=== PATIENT | female | born 1955 | race Caucasian/White ===

== ENCOUNTER 2020-02-21 17:35 | Outpatient (CLI) | payer OTHER, SELFPAY ==
--- NOTE | ~2020-02-21 | XR_ITS ---
XR foot RT min 3V DATE: 02/21/2020 18:04 INDICATION: Dorsal pain. No injury. TECHNIQUE: 4 views COMPARISON: None FINDINGS: Screws are noted in the distal shaft of the first metatarsal bone. There is prominent osteo arthritic change at the first metatarsophalangeal joint. No fracture, dislocation, periosteal reaction or bone destruction is detected. IMPRESSION: Postoperative change of first metatarsal Prominent osteoarthritic change at first metatarsophalangeal joint Reviewed, dictated and finalized at location A.
== END 2020-02-21 17:36 | disposition home or self-care (01) ==
PROVIDERS: PCP Internal Medicine; Visit Provider Internal Medicine
DX: M79.673 Pain in unspecified foot (principal); Z98.890 Other specified postprocedural states
CPT/HCPCS: 73630

== ENCOUNTER 2020-07-21 16:22 | Outpatient (CLI) | payer OTHER, SELFPAY ==
--- NOTE | ~2020-07-21 | XR_ITS ---
EXAMINATION: XR chest 2V DATE: 07/21/2020 16:54 INDICATION: TB screening TECHNIQUE: PA and lateral views of the chest were obtained. COMPARISON: Chest radiograph dated 06/26/2018 and 09/13/07 FINDINGS: Unchanged mild biapical pleural-parenchymal scarring. Lungs remain otherwise clear with no new airspa ce opacities, pulmonary edema, pleural effusion or pneumothorax. Mild eventration along the diaphragm . The cardiomediastinal silhouette is normal. Mild thoracic levocurvature with moderate spondylosis. IMPRESSION: 1. Stable appearance of chronic mild biapical pleural-parenchymal scarring. No acute cardiopulmonary disease. Reviewed, dictated and finalized at location A. 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
== END 2020-07-21 16:23 | disposition home or self-care (01) ==
PROVIDERS: PCP Internal Medicine; Visit Provider Physician Assistant
DX: Z11.1 Encounter for screening for respiratory tuberculosis (principal)
CPT/HCPCS: 71046

== ENCOUNTER 2020-12-23 10:08 | Emergency (ER) | payer OTHER, SELFPAY ==
--- NOTE | ~2020-12-23 | XR_ITS ---
EXAMINATION: XR wrist RT min 3V DATE: 12/23/2020 10:23 INDICATION: Right wrist pain. TECHNIQUE: 4 views of right wrist were obtained. COMPARISON: None. FINDINGS: Bone alignment is normal. No fracture. There is mild osteoarthritis of first carpometacarpa l joint and first and second metacarpophalangeal joints. IMPRESSION: 1. Mild polyarticular osteoarthritis. Reviewed, dictated and finalized at location A.
--- NOTE | 2020-12-23 10:11 | ED.UPPEXIN ---
HPI - Extremity Injury (Upper) General Chief Complaint: Extremity Injury, Upper Stated Complaint: injured r wrist Time Seen by Provider: 12/23/20 10:11 Source: patient and RN notes reviewed History of Present Illness HPI narrative: Patient is a 65-year-old female who presents the urgent care with complaints of right wrist injury with swelling and pain. Patient is right-hand dominant. Patient states that she fell catching herself outward yesterday. States it is slightly swollen, painful with movement. Patient has been elevating and using ibuprofen. No other acute complaints. No acute distress noted. Denies of any other injuries from the fall. Patient aware of the plan of care. Some parts of this dictation were generated by voice recognition software and may contain typographical and/or grammatical inaccuracies. Related Data Home Medications Medication Instructions Recorded Confirmed triamcinolone acetonide 0.1 % 1 applic TOPICAL BID 05/23/19 08/20/20 topical cream folic acid 1 mg tablet 1 mg PO DAILY 02/21/20 08/20/20 adalimumab 20 mg/0.2 mL 20 mg SUBCUT .COMPLEX ea 08/20/20 08/20/20 subcutaneous syringe kit calcium carbonate 600 mg calcium 600 mg PO DAILY 08/20/20 08/20/20 (1,500 mg) tablet cholecalciferol (vitamin D3) 50 50 mcg PO DAILY 08/20/20 08/20/20 mcg (2,000 unit) tablet methotrexate sodium 2.5 mg tablet 20 mg PO WEEKLY tablet 08/20/20 08/20/20 naltrexone 50 mg tablet 50 mg PO DAILY 08/20/20 08/20/20 Allergies Allergy/AdvReac Type Severity Reaction Status Date / Time No Known Allergies Allergy Verified 08/20/20 08:10 Review of Systems Review of Systems: Narrative: CONSTITUTIONAL: Denies fever, chills, or sweats. EYES: Denies visual changes, redness, or discharge. ENT: Denies rhinorrhea, congestion, sore throat, or otalgia. CARDIOVASCULAR: Denies chest pain, palpitations, or edema. RESPIRATORY: Denies cough or dyspnea. GASTROINTESTINAL: Denies abdominal pain, nausea, vomiting, or diarrhea. GENITOURINARY: Denies dysuria or hematuria. SKIN: Denies rash or itching. MUSCULOSKELETAL: Reports of right wrist injury with pain and swelling NEUROLOGIC: Denies headache, numbness, or weakness. All other systems reviewed are negative, except as documented in HPI. [facility] Past Medical History Medical History Body mass index (bmi) 25.0-25.9, adult Cervicalgia Cognitive dysfunction Gastroesophageal reflux disease Hx of Sjogren's disease Hyperlipidemia Low back pain without sciatica On fpc drug therapy Vitamin B12 deficiency Surgical History Surgical History History of arthroplasty of left shoulder Social History Social History Smoking status: Never smoker Alcohol intake: current Drinks per week: 7 Substance use: never Comments At the time of my signature, I reviewed and agree with the nursing past medical, surgical, social, and family history. There is no relevant family history pertinent to the patient complaint. Exam Narrative: Exam Narrative: GENERAL: This is a well-nourished, well-developed patient, in no apparent distress. HEAD: normocephalic, atraumatic. EYES: PERRL. Sclera clear/white. Vision is grossly intact. EARS: External ears normal NOSE: External nose normal with no obvious nasal discharge, nares without redness, no rhinorrhea. THROAT: Mucous membranes moist NECK: Neck supple CARDIOVASCULAR: Regular rate and rhythm without murmurs, gallops, or rubs. RESPIRATORY: Clear to auscultation. Breath sounds equal bilaterally. No wheezes, rales, or rhonchi. SKIN: warm, intact with no suspicious lesions or rash, good texture and turgor. NEURO: awake, alert, and oriented to person, place and time. There were no obvious focal neurologic abnormalities. EXTREMITIES: Mild edema noted to the radial aspect of the right wr
[2020-12-23 10:14] VITALS: BP 121/77; PULSE 77; RESP 12; TEMP 36.5; O2SAT 99
== END 2020-12-23 10:44 | disposition home or self-care (01) ==
PROVIDERS: Emergency Provider Nurse Practitioner Family; PCP Internal Medicine
DX: S63.501A Unspecified sprain of right wrist, initial encounter (principal); S66.911A Strain of unspecified muscle, fascia and tendon at wrist and hand level, right hand, initial encounter; S61.401A Unspecified open wound of right hand, initial encounter; W19.XXXA Unspecified fall, initial encounter; K21.9 Gastro-esophageal reflux disease without esophagitis; M35.00 Sjogren syndrome, unspecified; E78.5 Hyperlipidemia, unspecified
CPT/HCPCS: 73110; 99213; G0463

== ENCOUNTER 2021-05-22 07:50 | Outpatient (CLI) | payer OTHER, SELFPAY ==
--- NOTE | ~2021-05-22 | US_ITS ---
EXAMINATION: US abdomen limited DATE: 05/22/2021 08:11 INDICATION: Right upper quadrant pain TECHNIQUE: Multiple grayscale and Doppler ultrasound images of the abdomen were obtained. COMPARISON: None available FINDINGS: Bowel gas obscures visualization of the pancreas. The visualized portions of the pancreas a re unremarkable. The liver is normal with normal echogenicity and echotexture. No surface nodularity. Normal hepatopetal flow in the main portal vein. The gallbladder is normal with no abnormal wall thi ckening, pericholecystic fluid or stones. The normal common bile duct measures 3 mm. There was no son ographic Zhao sign. IMPRESSION: 1. Normal sonographic study of the gallbladder. Reviewed, dictated and finalized at location A. 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
== END 2021-05-22 07:51 | disposition home or self-care (01) ==
LOC: ANHIMG 07:50
PROVIDERS: PCP Internal Medicine
DX: R10.13 Epigastric pain (principal)
CPT/HCPCS: 76705

== ENCOUNTER 2022-04-03 22:47 | Emergency (ER) | payer OTHER, SELFPAY ==
--- NOTE | ~2022-04-03 | XR_ITS ---
EXAMINATION: XR ankle RT min 3V DATE: 04/03/2022 23:20 INDICATION: Right ankle pain post fall TECHNIQUE: Anteroposterior, oblique, mortise, and lateral views of the right ankle were obtained. COMPARISON: None. FINDINGS: Nondisplaced transverse fracture across the tip of the lateral malleolus exiting the medial cortex 7- 8 mm caudal to the level of the tibiotalar joint line. Tiny heterotopic ossicle near the tip the late ral malleolus likely sequela of chronic lateral ankle sprain. No other fractures identified. Likely r ealignment osteotomy at the neck of the first metatarsal fixed with a pair of screws, the more distal without a head. Profiled joint spaces appear relatively preserved. There is prominent hypertrophic c hange and moderate sized heterotopic ossicle at the dorsal aspect of the anterior process of the talu s. No evident osseous coalition. Bone island in the calcaneus. Small right ankle joint effusion. Soft tissue swelling about the lateral malleolus. IMPRESSION: 1. Nondisplaced transverse fracture of the distal left fibula consistent with a Eugene type A injury p attaydin. Reviewed, dictated and finalized at location A. IMPRESSION: 1. Nondisplaced transverse fracture of the distal left fibula consistent with a Eugene type A injury pattern.
[2022-04-03 22:53] VITALS: BP 121/70; PULSE 74; RESP 16; TEMP 36.9; O2SAT 100
--- NOTE | 2022-04-04 01:30 | PC.NURSE ---
Patient wheeled out by significant other and states we're leaving, call us if you get any results. Patient was A&Ox4 and refused to sign paperwork before leaving.
--- NOTE | 2022-04-04 15:08 | PC.NURSE ---
PER DR. MASON'S REQUEST THIS PT WAS CALLED REGARDING OVER READ OF ANKLE XRAY. PT INFORMED OF FRACTURE AND NEED TO COME BACK TO ED OR SEE DR. BEATRIZ RAI. PT DOES NOT WISH TO COME BACK TO ED
== END 2022-04-04 01:31 | disposition left against medical advice (07) ==
PROVIDERS: Emergency Provider Emergency Medicine; PCP Family Medicine
DX: S99.911A Unspecified injury of right ankle, initial encounter (principal)
CPT/HCPCS: 73610; 99199

== ENCOUNTER 2022-08-31 10:37 | Emergency (ER) | payer MEDICARE, SELFPAY ==
--- NOTE | ~2022-08-31 | XR_ITS ---
EXAMINATION: XR hand RT min 3V INDICATION: Right hand pain, initial encounter TECHNIQUE: Three views of the right hand are obtained. COMPARISON: None available FINDINGS: There appear to be nondisplaced transverse fractures in the proximal necks of the fourth an d fifth metacarpals. There is mild osteoarthritis of multiple interphalangeal joints. IMPRESSION: 1. Possible nondisplaced fractures in the proximal necks of the fourth and fifth metacarpals. Recomme nd correlation for tenderness at the sites. Reviewed, dictated and finalized at location L. IMPRESSION: 1. Possible nondisplaced fractures in the proximal necks of the fourth and fift h metacarpals. Recommend correlation for tenderness at the sites.
--- NOTE | ~2022-08-31 | XR_ITS ---
EXAMINATION: [id number] INDICATION: Right-sided chest pain TECHNIQUE: A frontal view of the chest and 3 views of the right ribs were obtained. COMPARISON: None. FINDINGS: The lungs are free of acute opacities. No pleural effusion or pneumothorax. No displaced ri b fracture is identified. The cardiomediastinal silhouette is normal. IMPRESSION: 1. No acute cardiopulmonary abnormality or evidence of displaced rib fracture. Reviewed, dictated and finalized at location L.
--- NOTE | 2022-08-31 10:49 | ED.UPPEXIN ---
HPI - Extremity Injury (Upper) General Chief Complaint: Extremity Injury, Upper Stated Complaint: rt hand injury Source: patient and RN notes reviewed History of Present Illness HPI narrative: 67 yo F presents to urgent care with complaints of right dorsal hand pain and right rib pain. pt states she fell last week, injuring these two areas. Pt presents with ecchymosis to right hand and distal FA. Denies any wrist pain, numbness, tingling, head injury, LOC, chest pain, SOB, or abdominal pain. Pt states she tripped on the sidewalk after having cataract surgery and attempted to catch herself with her hands. Pt believes her underwire of her bra hit her rib. Pt has been taking Tylenol at home with minimal relief and wrapping it with a brace. Related Data Home Medications Medication Instructions Recorded Confirmed folic acid 1 mg tablet 1 mg PO DAILY 02/21/20 08/31/22 adalimumab 20 mg/0.2 mL 20 mg subcut .COMPLEX 08/20/20 08/31/22 subcutaneous syringe kit (Leonard(CF)) methotrexate sodium 2.5 mg tablet 20 mg PO WEEKLY 08/20/20 08/31/22 vit C 250 mg-vit E 200 unit-zinc 1 tablet PO BID 03/11/22 08/31/22 12.5 mg-copper 1 [id number] tablet (ICaps AREDS2 (copper citrate)) omeprazole 20 mg tablet,delayed 20 mg PO DAILY 04/08/22 08/31/22 release Allergies Allergy/AdvReac Type Severity Reaction Status Date / Time No Known Allergies Allergy Verified 08/31/22 10:44 Review of Systems Review of Systems: Pertinent positives and pertinent negatives per HPI. [facility] Past Medical History Medical History Body mass index (bmi) 25.0-25.9, adult Cervicalgia Closed fracture of lateral malleolus of right ankle Cognitive dysfunction Gastroesophageal reflux disease Hx of Sjogren's disease Hyperlipidemia Low back pain without sciatica On budget assistant drug therapy Vision changes Vitamin B12 deficiency Surgical History Surgical History History of arthroplasty of left shoulder History of section History of eye surgery Right cataract 2021 Right Vitrectomy 2020 History of hysterectomy Family History Family History Other Arthritis Diabetes mellitus Heart disease Hypertension Lung cancer Social History Social History Smoking status: Never smoker Second hand tobacco smoke exposure: No Alcohol intake: current Drinks per week: 7 Substance use: never Substance use type: does not use Living arrangements: with family Occupation/Education: retired Gender identity (if verbalized by the patient): Female Comments At the time of my signature, I reviewed and agree with the nursing past medical, surgical, social, and family history. There is no relevant family history pertinent to the patient complaint. Exam Narrative: GENERAL: This is a well-nourished, well-developed patient, in no apparent distress. HEAD: normocephalic, atraumatic. EYES: Sclera clear/white. Vision is grossly intact. EARS: External ears normal, auditory canals clear and without drainage, TMs normal without perforation. Hearing grossly intact. NOSE: External nose normal with no obvious nasal discharge, nares without redness, no rhinorrhea. NECK: Neck supple, non-tender without lymphadenopathy, masses or thyromegaly. CARDIOVASCULAR: Regular rate and rhythm without murmurs, gallops, or rubs. Slight tenderness to right, lower, anterior, rib. RESPIRATORY: Clear to auscultation. Breath sounds equal bilaterally. No wheezes, rales, or rhonchi. GASTROINTESTINAL: Abdomen soft, non-tender, nondistended. Bowel sounds are active. No hepato-splenomegaly, or palpable masses. No guarding. SKIN: warm, intact with no suspicious lesions or rash, good texture and turgor. NEURO: awake, alert, and oriented to person, place and
[2022-08-31 10:58] VITALS: BP 151/100; PULSE 66; RESP 18; TEMP 36.5; O2SAT 100
== END 2022-08-31 11:49 | disposition home or self-care (01) ==
PROVIDERS: Emergency Provider Nurse Practitioner Family
DX: S62.91XA Unspecified fracture of right hand, initial encounter for closed fracture (principal); S20.211A Contusion of right front wall of thorax, initial encounter; W01.0XXA Fall on same level from slipping, tripping and stumbling without subsequent striking against object, initial encounter; K21.9 Gastro-esophageal reflux disease without esophagitis; M35.00 Sjogren syndrome, unspecified; E78.5 Hyperlipidemia, unspecified
CPT/HCPCS: 29125; 71101; 73130; 99214; A4565; G0463

== ENCOUNTER 2022-09-04 10:31 | Emergency (ER) | payer MEDICARE, SELFPAY ==
--- NOTE | ~2022-09-04 | XR_ITS ---
EXAMINATION: XR chest 2V DATE: 09/04/2022 11:30 INDICATION: Right-sided chest pain TECHNIQUE: Frontal and lateral views of the chest are obtained COMPARISON: 08/31/2022 FINDINGS: The lungs are free of acute opacities. No pleural effusion or pneumothorax. The cardiomedia stinal silhouette is normal. There is mild thoracic spondylosis. IMPRESSION: 1. No acute cardiopulmonary abnormality. Reviewed, dictated and finalized at location A.
--- NOTE | 2022-09-04 10:45 | ED.SOB ---
HPI - SOB/Dyspnea General Chief Complaint: Upper Respiratory Infection Stated Complaint: shortness of breath Source: patient and RN notes reviewed History of Present Illness HPI Narrative: 67-year-old female presents to urgent care with complaints of painful breathing to her right anterior rib area. Patient reports some shortness of breath and just increased pain in the area where she was diagnosed with a rib contusion this past week. The patient was seen this past week and diagnosed with a hand fracture and rib contusion after she fell. Denies any fevers, chills chest pain, or vomiting. Patient has not been taking anything for pain. Some parts of this dictation were generated by voice recognition software and may contain typographical and/or grammatical inaccuracies. Related Data Home Medications Medication Instructions Recorded Confirmed folic acid 1 mg tablet 1 mg PO DAILY 02/21/20 08/31/22 methotrexate sodium 2.5 mg tablet 20 mg PO WEEKLY 08/20/20 08/31/22 vit C 250 mg-vit E 200 unit-zinc 1 tablet PO BID 03/11/22 08/31/22 12.5 mg-copper 1 [id number] tablet (ICaps AREDS2 (copper citrate)) omeprazole 20 mg tablet,delayed 20 mg PO DAILY 04/08/22 08/31/22 release calcium carbonate 600 mg calcium 600 mg PO DAILY 09/04/22 09/04/22 (1,500 mg) tablet (Calcium) cholecalciferol (vitamin D3) 25 25 mcg PO DAILY 09/04/22 09/04/22 mcg (1,000 unit) capsule (Vitamin D3) Allergies Allergy/AdvReac Type Severity Reaction Status Date / Time No Known Allergies Allergy Verified 09/04/22 11:03 Review of Systems Review of Systems: Pertinent positives and pertinent negatives per HPI. 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 Vision changes Vitamin B12 deficiency Surgical History Surgical History History of arthroplasty of left shoulder History of section History of eye surgery Right cataract 2021 Right Vitrectomy 2020 History of hysterectomy Family History Family History Other Arthritis Diabetes mellitus Heart disease Hypertension Lung cancer Social History Social History Smoking status: Never smoker Second hand tobacco smoke exposure: No Alcohol intake: current Drinks per week: 7 Substance use: never Substance use type: does not use Living arrangements: with family Occupation/Education: retired Gender identity (if verbalized by the patient): Female Comments At the time of my signature, I reviewed and agree with the nursing past medical, surgical, social, and family history. There is no relevant family history pertinent to the patient complaint. Exam Narrative: GENERAL: This is a well-nourished, well-developed patient, in no apparent distress. HEAD: normocephalic, atraumatic. EYES: PERRL. Sclera clear/white. Vision is grossly intact. EARS: External ears normal, auditory canals clear and without drainage, TMs normal without perforation. Hearing grossly intact. NOSE: External nose normal with no obvious nasal discharge, nares without redness, no rhinorrhea. THROAT: Mucous membranes moist, posterior pharynx clear. NECK: Neck supple, non-tender without lymphadenopathy, masses or thyromegaly. CARDIOVASCULAR: Regular rate and rhythm without murmurs, gallops, or rubs. RESPIRATORY: Clear to auscultation. Breath sounds equal bilaterally. No wheezes, rales, or rhonchi. GASTROINTESTINAL: Abdomen soft, non-tender, nondistended. Bowel sounds are active. No hepato-splenomegaly, or palpable say
[2022-09-04 11:07] VITALS: BP 154/98; PULSE 68; RESP 16; TEMP 36.5; O2SAT 97
== END 2022-09-04 12:05 | disposition home or self-care (01) ==
PROVIDERS: Emergency Provider Nurse Practitioner Family; PCP Family Medicine
DX: S20.211D Contusion of right front wall of thorax, subsequent encounter (principal); W19.XXXD Unspecified fall, subsequent encounter; K21.9 Gastro-esophageal reflux disease without esophagitis; M35.00 Sjogren syndrome, unspecified; E78.5 Hyperlipidemia, unspecified
CPT/HCPCS: 71046; 99213; G0463

== ENCOUNTER 2023-02-02 13:45 | Outpatient (CLI) | payer MEDICARE, SELFPAY ==
[2023-02-02 19:34] LABS: Appearance Urine Clear (Clear); Bacteria Urine None Seen /hpf; Bilirubin Urine Negative (Negative); Blood Urine Negative (Negative); Color Urine Yellow (Yellow); Glucose Urine UA Negative (Negative); Hyaline Casts Urine Present /lpf; Ketones Urine Negative (Negative); Leukocyte Esterase Ur Trace LEU/UL (Negative); Nitrate Urine Negative (Negative); Protein Urine Negative (Negative); RBC Urine 0-2 /hpf (0-2); Specific Grav Ur 1.018 (1.001-1.035); Squamous Epithelial Cell Urine None seen /hpf (Few); WBC Urine 0-5 /hpf
[2023-02-02 19:37] LABS: Add Urine Microscopic? YES
== END 2023-02-02 13:46 | disposition home or self-care (01) ==
LOC: ANHGOSHLAB 13:48
PROVIDERS: PCP Family Medicine; Visit Provider Clinical Nurse Specialist
DX: R39.9 Unspecified symptoms and signs involving the genitourinary system (principal)
CPT/HCPCS: 81001

== ENCOUNTER 2023-05-11 12:54 | Emergency (ER) | payer MEDICARE, SELFPAY ==
[2023-05-11 13:01] VITALS: BP 140/89; PULSE 67; RESP 16; TEMP 36.6; O2SAT 99
--- NOTE | 2023-05-11 13:12 | ED.SKABFB ---
HPI - Skin/Abscess/Foreign Bdy General Chief complaint: Skin/Abscess/Foreign Body Stated complaint: INFECTED R ANKLE Time Seen by Provider: 05/11/23 13:06 Source: patient and RN notes reviewed Mode of arrival: ambulatory Limitations: no limitations History of Present Illness HPI narrative: Patient presents today complaining of an area of tenderness and pain to the right youssef. Two days ago she ran her youssef into a piece of wood in her garage on accident. States there was some localized swelling, pain, and redness. Reports improved symptoms since onset. She currently rates her pain 06/22. She presents today at [facility] for evaluation due to concerns for infection. Related Data Home Medications Medication Instructions Recorded Confirmed methotrexate sodium 2.5 mg tablet 20 mg PO WEEKLY 08/20/20 05/11/23 vit C 250 mg-vit E 200 unit-zinc 1 tablet PO BID 03/11/22 05/11/23 12.5 mg-copper 1 [id number] tablet (ICaps AREDS2 (copper citrate)) omeprazole 20 mg tablet,delayed 20 mg PO DAILY 04/08/22 05/11/23 release calcium carbonate 600 mg calcium 600 mg PO DAILY 09/04/22 05/11/23 (1,500 mg) tablet (Calcium) cholecalciferol (vitamin D3) 25 25 mcg PO DAILY 09/04/22 05/11/23 mcg (1,000 unit) capsule (Vitamin D3) golimumab 12.5 mg/mL intravenous 12.5 mg IV PER PKG DIR 10/06/22 03/24/23 solution (Simponi ARIA) Allergies Allergy/AdvReac Type Severity Reaction Status Date / Time No Known Allergies Allergy Verified 05/11/23 13:08 Review of Systems Review of Systems: CONSTITUTIONAL: Denies body aches, fever, chills, or sweats. EYES: Denies visual changes, redness, or discharge. ENT: Denies rhinorrhea, congestion, sore throat, or otalgia. CARDIOVASCULAR: Denies chest pain, palpitations, or edema. RESPIRATORY: Denies cough or dyspnea. GASTROINTESTINAL: Denies abdominal pain, nausea, vomiting, or diarrhea. GENITOURINARY: Denies dysuria or hematuria. SKIN: + tenderness and swelling to right youssef MUSCULOSKELETAL: Denies back pain, joint pain, or myalgia. NEUROLOGIC: Denies headache, numbness, tingling, or weakness. PSYCH: Denies depression or anxiety. 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 Vision changes Vitamin B12 deficiency Surgical History Surgical History History of arthroplasty of left shoulder History of section History of eye surgery Right cataract 2021 Right Vitrectomy 2020 History of hysterectomy Family History Family History Other Arthritis Diabetes mellitus Heart disease Hypertension Lung cancer Social History Social History Smoking status: Never smoker Second hand tobacco smoke exposure: No Alcohol intake: current Drinks per week: 7 Substance use: never Substance use type: does not use Lack of Transportation: No Lack of Food: Never True Current Housing: I Have Housing Concerned About Future Housing: No Difficulty Paying Gas/Electric Bills: No Difficulty Paying for Meds: No Currently Unemployed: No Education: Associate Degree Difficulty w/ Childcare or Family Care: No Living arrangements: with family Occupation/Education: retired Gender identity (if verbalized by the patient): Female Comments At time of signature, I have reviewed and agree with nursing past medical, surgical, social and family history unless otherwise noted. Please see nursing chart for further information. There is no relevant family history pertinent to
--- NOTE | 2023-05-11 13:24 | PC.NURSE ---
+PMS, FULL ROM, PT AMBULATES WITH STEADY GAIT. NON TENDER UPON PALPATION
== END 2023-05-11 13:15 | disposition home or self-care (01) ==
PROVIDERS: Emergency Provider Nurse Practitioner; PCP Family Medicine
DX: S80.11XA Contusion of right lower leg, initial encounter (principal); W22.8XXA Striking against or struck by other objects, initial encounter; K21.9 Gastro-esophageal reflux disease without esophagitis; E78.5 Hyperlipidemia, unspecified; M35.00 Sjogren syndrome, unspecified
CPT/HCPCS: 99212; G0463

== ENCOUNTER 2023-07-06 11:39 | Outpatient (CLI) | payer MEDICARE, SELFPAY ==
--- NOTE | ~2023-07-06 | XR_ITS ---
Lumbosacral Spine: AP, oblique, and lateral views Clinical History: Pain Findings: There is dextroscoliosis. No fracture seen. There is minimal grade 1 retrolisthesis of L2 o ronan L3. There is moderate to advanced degenerative disc narrowing at L1-L2 and L2-L3. There is modera te to advanced facet arthropathy throughout the lumbar spine. The intervertebral disc spaces are pres erved. The sacroiliac joints are normally outlined. Impression: Moderate degenerative spondylosis, as above. Mild dextroscoliosis. Minimal grade 1 retrolisthesis of L2 over L3. Reviewed, dictated and finalized at location M. IST Impression: Moderate degenerative spondylosis, as above. Mild dextroscoliosis. Minimal grade 1 retrolisthesis of L2 over L3.
== END 2023-07-06 11:40 ==
PROVIDERS: PCP Family Medicine; Visit Provider Family Medicine
DX: M54.50 Low back pain, unspecified (principal); M43.06 Spondylolysis, lumbar region; M41.87 Other forms of scoliosis, lumbosacral region
CPT/HCPCS: 72110

== ENCOUNTER 2023-12-26 13:20 | Outpatient (NON) | payer MEDICARE, SELFPAY ==
[2023-12-26 15:05] LABS: Appearance Urine Cloudy (Clear); Bacteria Urine 2+ /hpf; Bilirubin Urine Negative (Negative); Blood Urine Non-Hemolyzed Trace (Negative); Color Urine Yellow (Yellow); Glucose Urine UA Negative (Negative); Ketones Urine Negative (Negative); Leukocyte Esterase Ur 3+ LEU/UL (Negative); Nitrate Urine Negative (Negative); Non Pathogenic Casts 0-2; Protein Urine Negative (Negative); RBC Urine 0-2 /hpf (0-2); Specific Grav Ur 1.011 (1.001-1.035); Squamous Epithelial Cell Urine None Seen /hpf (Few); Urobilinogen Urine 0.2 mg/dL (<2.0); WBC Urine >100 /hpf (0-3)
[2023-12-26 15:17] LABS: Add Urine Microscopic? YES
== END 2023-12-26 13:21 | disposition home or self-care (01) ==
LOC: ANHGOSHLAB 13:22
PROVIDERS: PCP Family Medicine; Visit Provider Nurse Practitioner
DX: R30.0 Dysuria (principal)
CPT/HCPCS: 81001; 87077; 87086; 87186

== ENCOUNTER 2024-02-10 10:00 | Emergency (ER) | payer MEDICARE, SELFPAY ==
--- NOTE | 2024-02-10 10:04 | ED.FEMALEGU ---
HPI - Female Genitourinary General Chief complaint: Urogenital-Female Stated complaint: UTI Time Seen by Provider: 02/10/24 10:30 Source: patient and RN notes reviewed Mode of arrival: ambulatory Limitations: no limitations History of Present Illness HPI Narrative: 68-year-old female presents with concern for dysuria for 3 days. She reports she has had frequent urinary tract infections this summer. She had an infection in December and then at the beginning of January. She denies fever, aches, chills, sweats, nausea, vomiting, back pain, abdominal pain. She denies taking any medications for her symptoms MD elicited complaint: UTI Related Data Home Medications Medication Instructions Recorded Confirmed methotrexate sodium 2.5 mg tablet 20 mg PO WEEKLY 08/20/20 01/12/24 vit C 250 mg-vit E 200 unit-zinc 1 tablet PO BID 03/11/22 01/12/24 12.5 mg-copper 1 [id number] tablet (ICaps AREDS2 (copper citrate)) omeprazole 20 mg tablet,delayed 20 mg PO DAILY 04/08/22 01/12/24 release calcium carbonate (Calcium 600) 600 mg PO DAILY 09/04/22 01/12/24 cholecalciferol (vitamin D3) 25 25 mcg PO DAILY 09/04/22 01/12/24 mcg (1,000 unit) capsule (Vitamin D3) golimumab 12.5 mg/mL intravenous 12.5 mg IV PER PKG DIR 10/06/22 01/12/24 solution (Simponi ARIA) folic acid 1 mg tablet 1 mg PO DAILY 12/26/23 01/12/24 Allergies Allergy/AdvReac Type Severity Reaction Status Date / Time No Known Allergies Allergy Verified 01/12/24 09:02 Review of Systems Review of Systems: CONSTITUTIONAL: Denies malaise, chills, sweats, or fever. CARDIOVASCULAR: Denies chest pain, palpitations, or edema. RESPIRATORY: Denies cough or dyspnea. GASTROINTESTINAL: Denies abdominal pain, nausea, vomiting, diarrhea GENITOURINARY: Reports dysuria. Denies frequency, urgency, suprapubic pressure. Denies flank pain or hematuria. SKIN: Denies rash or itching. MUSCULOSKELETAL: Denies back pain or myalgia. All systems reviewed & are unremarkable except as noted in HPI and below PMFSH Past Medical History Medical History Body mass index (bmi) 25.0-25.9, adult Cervicalgia Closed fracture of lateral malleolus of right ankle Cognitive dysfunction Gastroesophageal reflux disease Hx of Sjogren's disease Hyperlipidemia Low back pain without sciatica [facility] drug therapy Vision changes Vitamin B12 deficiency Surgical History Surgical History History of arthroplasty of left shoulder History of section History of eye surgery Right cataract 2021 Right Vitrectomy 2020 History of hysterectomy Family History Family History Other Arthritis Diabetes mellitus Heart disease Hypertension Lung cancer Social History Social History Smoking status: Never smoker Second hand tobacco smoke exposure: No Alcohol intake: current Drinks per week: 7 Substance use: never Substance use type: does not use Do You Feel Safe in your Home?: Yes Lack of Transportation: No Lack of Food: Never True Current Housing: I Have Housing Concerned About Future Housing: No Difficulty Paying Gas/Electric Bills: No Difficulty Paying for Meds: No Currently Unemployed: No Education: Associate Degree Difficulty w/ Childcare or Family Care: No Living arrangements: with family Occupation/Education: retired Gender identity (if verbalized by the patient): Female Comments At time of signature, agree with nursing past medical, surgical, social and family history. There is no relevant family history pertinent to the presenting complaint Exam Narrative: GENERAL: Well-appearing, well-nourished, and in no acute distress. HEAD: Normocephalic. EYES: PERRLA, conjunctivae clear. NECK: Supple. No lymphadenopa
[2024-02-10 10:13] VITALS: BP 139/91; PULSE 73; RESP 16; TEMP 36.8; O2SAT 100
[2024-02-10 10:31] LABS: EDUAAPPEAR Cloudy; EDUABILI Negative; EDUABLOOD Trace; EDUACOLOR1 Yellow; EDUAGLUCOSE Negative; EDUAKETONE Negative; EDUALEUKO 2+; EDUANITRATE Negative; EDUAPH 7.5; EDUAPROTEIN Negative; EDUASPGRAVITY 1.015; EDUAUROBILI 0.2
== END 2024-02-10 10:44 | disposition home or self-care (01) ==
PROVIDERS: Emergency Provider Nurse Practitioner; PCP Family Medicine
DX: N39.0 Urinary tract infection, site not specified (principal); K21.9 Gastro-esophageal reflux disease without esophagitis; M35.00 Sjogren syndrome, unspecified; E78.5 Hyperlipidemia, unspecified; Z96.612 Presence of left artificial shoulder joint
CPT/HCPCS: 81003; 87086; 99213; G0463

== ENCOUNTER 2024-07-12 09:54 | Outpatient (CLI) | payer MEDICARE, SELFPAY ==
--- NOTE | ~2024-07-12 | XR_ITS ---
EXAMINATION: XR lumbar spine min 4V DATE: 07/12/2024 10:16 INDICATION: Worsening right lower back pain with right-sided sciatica. TECHNIQUE: 5 views of lumbar spine including standing views were obtained. COMPARISON: Lumbar spine radiographs 07/06/2023 FINDINGS: There is 20 degrees dextroscoliosis of thoracolumbar spine. There is 3 mm retrolisthesis of L2 on L3. Vertebral body heights are normal. There is mildly decreased disc height at L1-L2, severel y decreased disc height at L2-L3, mildly decreased disc height at L3-L4, and severely decreased disc height at L4-L5. There is multilevel facet joint osteoarthritis, severe at multiple levels. IMPRESSION: 1. Severe lumbar spondylosis. 2. Thoracolumbar dextroscoliosis. Reviewed, dictated and finalized at location A. P MAKER
== END 2024-07-12 09:55 | disposition home or self-care (01) ==
LOC: GOSHIMG 09:55
PROVIDERS: PCP Family Medicine; Visit Provider Family Medicine
DX: M47.896 Other spondylosis, lumbar region (principal)
CPT/HCPCS: 72110

== ENCOUNTER 2024-07-31 10:37 | Outpatient (CLI) | payer MEDICARE, SELFPAY ==
--- NOTE | ~2024-07-31 | MR_ITS ---
EXAMINATION: MR lumbar spine wo con DATE: 07/31/2024 11:00 INDICATION: Low back pain. TECHNIQUE: Magnetic resonance imaging (MRI) of the lumbar spine was performed without intravenous con trast. Sequences included sagittal T2-weighted FSE, sagittal T2-weighted FS FSE, sagittal T1-weighted FSE, and axial T2-weighted FSE. COMPARISON: Lumbar spine radiographs 07/12/2024 FINDINGS: There is 13 degrees dextroscoliosis of thoracolumbar spine. There is 4 mm retrolisthesis of L2 on L3. There is mild chronic anterior wedging of T11-L1 vertebral bodies. There is moderately dec reased disc height at L1-L2 and severely decreased disc height at L2-L3 and L4-L5. The distal spinal cord signal intensity is normal. The conus medullaris is at T12-L1. The following disc levels are spe cifically discussed: L1-L2: The disc is bulging and has an annular fissure. There is severe bilateral facet joint osteoart hritis. There is mild bilateral neural foraminal stenosis. There is mild central canal stenosis. L2-L3: The disc is bulging. There is severe bilateral facet joint osteoarthritis. There is mild right and moderate left neural foraminal stenosis. There is mild central canal stenosis. L3-L4: The disc is bulging. There is severe bilateral facet joint osteoarthritis. There is mild bilat eral neural foraminal stenosis. There is mild central canal stenosis. L4-L5: The disc is bulging and has an annular fissure. There is severe bilateral facet joint osteoart hritis. There is mild bilateral neural foraminal stenosis. There is mild central canal stenosis. L5-S1: The disc is bulging. There is severe bilateral facet joint osteoarthritis. There is a 5 mm syn ovial cyst in right lateral recess. There is mild bilateral neural foraminal stenosis. There is mild central canal stenosis. There is severe stenosis of right lateral recess. IMPRESSION: 1. Severe lower lumbar spondylosis. Of note, there is severe stenosis of right lateral recess at L5-S 1 secondary to a synovial cyst. 2. Thoracolumbar dextroscoliosis. Reviewed, dictated and finalized at location A. [employer]SEM[employer]ER IMPRESSION: 1. Severe lower lumbar spondylosis. Of note, there is severe stenosis of right lateral recess at L5-S1 secondary to a synovial cyst. 2. Thoracolumbar dextroscoliosis.
== END 2024-07-31 10:38 | disposition home or self-care (01) ==
LOC: GOSHIMG 10:37
PROVIDERS: PCP Family Medicine; Visit Provider Family Medicine
DX: M47.816 Spondylosis without myelopathy or radiculopathy, lumbar region (principal); M48.07 Spinal stenosis, lumbosacral region; M71.38 Other bursal cyst, other site; M41.85 Other forms of scoliosis, thoracolumbar region
CPT/HCPCS: 72148

== ENCOUNTER 2024-08-20 09:55 | Emergency (ER) | payer MEDICARE, SELFPAY ==
[2024-08-20 10:14] VITALS: BP 128/90; PULSE 84; RESP 18; TEMP 36.7; O2SAT 100
[2024-08-20 10:25] LABS: EDSTREPNEGPOS1 Negative (Negative); EDUAAPPEAR Cloudy; EDUABILI Negative (Negative); EDUABLOOD Negative (Negative); EDUACOLOR1 Yellow; EDUAGLUCOSE Negative (Negative); EDUAKETONE Negative (Negative); EDUALEUKO 1+ (Negative); EDUANITRATE Negative (Negative); EDUAPH 5.5; EDUAPROTEIN Negative (Negative); EDUASPGRAVITY 1.015; EDUAUROBILI 0.2
[2024-08-20 10:39] LABS: EDINFLUASCREEN Negative (Negative); EDINFLUBSCREEN Negative (Negative)
--- NOTE | 2024-08-20 10:47 | ED_ITS ---
HPI - URI/Sore Throat General Chief Complaint: Upper Respiratory Infection Stated Complaint: Congestion/cough, Poss UTI Source: patient and RN notes reviewed Mode of arrival: ambulatory Limitations: no limitations History of Present Illness HPI Narrative: 69-year-old female presented for complaint of sore throat, headache, sinus pressure/congestion, cough, fever/chills. Onset 2 days. Started with diarrhea and then developed burning with urination and frequency. States she recently flew home from [place]. Denies shortness of breath, wheezing, nausea or vomiting. Tested negative for COVID at home yesterday. MD elicited complaint: cough Related Data Home Medications ?Medication ?Instructions ?Recorded ?Confirmed ?Last Taken ?Type methotrexate sodium 2.5 mg tablet 20 mg PO WEEKLY 08/20/20 08/20/24 Unknown History vit C 250 mg-vit E 200 unit-zinc 1 tablet PO BID 03/11/22 08/20/24 Unknown History 12.5 mg-copper 1 [id number]-odyjru tablet (ICaps AREDS2 (copper citrate)) omeprazole 20 mg tablet,delayed 20 mg PO DAILY 04/08/22 08/20/24 Unknown History release calcium carbonate (Calcium 600) 600 mg PO DAILY 09/04/22 08/20/24 Unknown History cholecalciferol (vitamin D3) 25 25 mcg PO DAILY 09/04/22 08/20/24 Unknown History mcg (1,000 unit) capsule (Vitamin D3) golimumab 12.5 mg/mL intravenous 12.5 mg IV PER PKG DIR 10/06/22 08/20/24 Unknown History solution (Simponi ARIA) folic acid 1 mg tablet 1 mg PO DAILY 12/26/23 08/20/24 Unknown History Allergies Allergy/AdvReac Type Severity Reaction Status Date / Time No Known Allergies Allergy Verified 08/20/24 10:13 Review of Systems 2 Review of Systems: per HPI [facility] Past Medical History Medical History Vision changes Closed fracture of lateral malleolus of right ankle Hyperlipidemia Vitamin B12 deficiency Low back pain without sciatica Hx of Sjogren's disease Cervicalgia Cognitive dysfunction 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 Gastroesophageal reflux disease Body mass index (bmi) 25.0-25.9, adult Surgical History Surgical History History of eye surgery Right cataract 2021 Right Vitrectomy 2020 History of hysterectomy History of section History of arthroplasty of left shoulder Family History Family History Other Arthritis Diabetes mellitus Heart disease Hypertension Lung cancer Social History Social History Smoking status: Never smoker Second hand tobacco smoke exposure: No Alcohol intake: current Drinks per week: 7 Substance use: never Substance use type: does not use Do You Feel Safe in your Home?: Yes Lack of Transportation: No Lack of Food: Never True Current Housing: I Have Housing Concerned About Future Housing: No Difficulty Paying Gas/Electric Bills: No Difficulty Paying for Meds: No Currently Unemployed: No Education: Associate Degree Difficulty w/ Childcare or Family Care: No Living arrangements: with family Occupation/Education: retired Gender identity (if verbalized by the patient): Female Exam Narrative: GENERAL: mildly Ill-appearing, nontoxic no acute distress. EYES: PERRLA, conjunctivae clear ENT: Mucous membranes moist. TM pearly dumont with dull light reflex bilaterally; no tragal tenderness. Oropharynx erythematous without lesions or exudate, no drooling, no hoarseness, no trismus, uvula midline. No tripod positioning, muffled voice, soft palate or pharyngeal wall bulging NECK: Supple. No lymphadenopathy CHEST: Clear to auscultation, breath sounds equal. 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 No wheezing, rhonchi, rales, or stridor. No respiratory distress, speaks in full sentences. HEART: Regular rate and rhythm. No murmur heard. SKIN: Warm, dry, no rash. NEURO: Alert and oriented x3. PSYCH: Normal mood and affect Course Course Emergency Course: Patient is aware of diagnosis, understands and agrees to treatment plan. Anticipatory guidance given. Patient agrees to follow-up as directed and is aware of reasons to seek care at the emergency department. Portions of this record may have been created with voice recognition software Level of Care: Express Care Visit Vital Signs Vital signs: Vital Signs Temperature 98.1 F 08/20/24 10:14 Pulse Rate 84 08/20/24 10:14 Respiratory Rate 18 08/20/24 10:14 Blood Pressure 128/90 08/20/24 10:14 Pulse Oximetry 100 08/20/24 10:14 Oxygen Delivery Room Air 08/20/24 10:14 Temperature 98.1 F 08/20/24 10:14 Pulse Rate 84 08/20/24 10:14 Respiratory Rate 18 08/20/24 10:14 Blood Pressure 128/90 08/20/24 10:14 Pulse Oximetry 100 08/20/24 10:14 Oxygen Delivery Room Air 08/20/24 10:14 reviewed MDM - URI/Sore Throat MDM Narrative Medical decision making narrative: Negative flu, COVID, strep. Results reviewed with patient and urine dip. Discussed physical exam findings. Rx Augmentin for possible UTI, she also states she gets yeast infections. Advised supportive measures and signs/symptoms to go to the ER. Pt is appropriate for outpt treatment and f/u. Differential Diagnosis Differential diagnosis: Likely upper respiratory infection, sinusitis and viral infection Lab Data Labs: Lab Results 08/20/24 08/20/24 Range/Units 10:24 10:37 POC Urine Color Yellow POC Urine Clarity Cloudy POC Urine pH 5.5 POC Ur Specif [place] 1.015 POC Urine Protein Negative (Negative) POC Ur Glucose (UA) Negative (Negative) POC Urine Ketones Negative (Negative) POC Urine Blood Negative (Negative) POC Urine Nitrite Negative (Negative) POC Urine Bilirubin Negative (Negative) POC Urine Urobilinogen 0.2 POC U Leukocyte Esteras 1+ (Negative) POC Influenza A Ag Negative (Negative) POC Influenza B Ag Negative (Negative) POC Grp A Strep Screen Negative (Negative) Discharge Plan Discharge Clinical Impression: Dysuria, Viral infection Patient Disposition: Home, Self-Care Condition: Stable Instructions: Antibiotic Form, Urinary Tract Infection in Women (ED), Viral Syndrome (ED) Additional Instructions: Flu and COVID negative Rapid strep swab was negative today You will be notified in a few days if the culture comes back positive for strep, and appropriate antibiotics will be called in at that time. if symptoms are due to a viral illness, it is not treated with antibiotics. Viral symptoms can be present for up to 10-14 days. Recommendations Flonase spray and Zyrtec for sinus congestion Cough syrup may cause drowsiness; avoid driving or take it at night time. Tylenol every 8 hours as needed for pain/fever Soft foods, cool liquids, warm tea. Gargle with warm saltwater twice a day. Chloraseptic spray and throat lozenges. Rest and stay hydrated. Take the antibiotic as prescribed for urine The urine will be sent of for a culture to identify what type of bacteria is causing your infection. If the culture shows that the antibiotic will not get rid of your infection, you will be notified and a new antibiotic will be called in for you. Increase water intake --Follow up with your PCP Go to the ER for worsening symptoms or concerns Patient Language: Mexican Prescriptions: New amoxicillin-pot clavulanate [Augmentin] 500-125 mg tablet 1 tablet PO Q12H 5 Days Qty: 10 0RF fluconazole 150 mg tablet 150 mg PO DAILY Qty: 2 0RF benzonatate 200 mg capsule 200 mg PO TID PRN (Reason: cough) Qty: 20 0RF prednisone 20 mg tablet 40 mg PO DAILY 5 Days Qty: 10 0RF No Action calcium carbonate [Calcium 600] 600 mg calcium (1,500 mg) Tablet 600 mg PO DAILY cholecalciferol (vitamin D3) [Vitamin D3] 25 mcg (1,000 unit) Capsule 25 mcg PO DAILY Simponi ARIA 12.5 mg/mL solution 12.5 mg IV PER PKG DIR Rx Instructions: once every 2 months methotrexate sodium 2.5 mg tablet 20 mg PO WEEKLY ICaps AREDS2 (copper citrate) 250 mg-200 unit -12.5 mg-1 mg tablet 1 tablet PO BID omeprazole 20 mg tablet,delayed release (DR/EC) 20 mg PO DAILY Patient Comments: on provided med list folic acid 1 mg tablet 1 mg PO DAILY escitalopram oxalate 20 mg tablet See Rx Instructions .ROUTE .COMPLEX Qty: 90 1RF Dose Instruction: TAKE 1 TABLET BY MOUTH DAILY Rx Instructions: TAKE 1 TABLET BY MOUTH DAILY Follow-up/Referrals: Kamila Katz DO [Primary Care Provider] - Time of Disposition: 10:56
[2024-08-20 11:04] LABS: EDCOVIDSCREEN Negative (Negative)
== END 2024-08-20 10:59 | disposition home or self-care (01) ==
PROVIDERS: Emergency Provider Nurse Practitioner Family; PCP Family Medicine
DX: R30.0 Dysuria (principal); B34.9 Viral infection, unspecified; Z20.822 Contact with and (suspected) exposure to COVID-19; E78.5 Hyperlipidemia, unspecified; M35.00 Sjogren syndrome, unspecified; K21.9 Gastro-esophageal reflux disease without esophagitis
CPT/HCPCS: 81003; 87081; 87086; 87186; 87426; 87804; 87880; 99213; G0463

== ENCOUNTER 2024-11-21 11:16 | Outpatient (CLI) | payer MEDICARE, SELFPAY ==
[2024-11-21 12:26] LABS: Basophils Percent Auto 1.3 % (0.2-1.2); Eosinophils Absolute Auto 0.4 K/mm3 (0-0.3); Eosinophils Percent Auto 11.9 % (0-4.4); Hematocrit 40.9 % (37.0-47.0); Hemoglobin 13.4 g/dL (12.0-15.0); Immature Granulocyte Absolute 0.01 K/mm3 (0.00-0.031); Immature Granulocyte Percent A 0.3 % (0-0.5); Lymphocytes Absolute Auto 1.28 K/mm3 (0.9-3.2); Lymphocytes Percent Auto 40.1 % (18.3-44.2); Mean Corpuscular HGB Conc 32.8 g/dl (32-36); Mean Corpuscular Hemoglobin 33.3 pg (26-34); Mean Corpuscular Volume 101.5 fl (80-100); Monocytes Absolute Auto 0.5 K/mm3 (0.1-0.6); Monocytes Percent Auto 14.1 % (2.6-8.5); Neutrophils Percent Auto 32.3 % (45.5-73.1); Platelet Count Result 203 k/mm3 (150-375); Red Blood Count 4.03 M/mm3 (4.2-5.4); Red Cell Distribution Width 13.2 % (11.5-14.5); White Blood Count 3.2 K/mm3 (4.5-10.0)
[2024-11-21 12:52] LABS: Alanine Aminotransferase 24 U/L (6-35); Albumin Level 4.3 g/dL (3.5-5.1); Alkaline Phosphatase 77 U/L (38-126); Anion Gap 7 mmol/L (4-12); Aspartate Amino Transferase 56 U/L (14-36); Bilirubin,Total 0.7 mg/dL (0.2-1.3); Blood Urea Nitrogen 13 mg/dL (7-17); Calcium 9.8 mg/dL (8.4-10.2); Carbon Dioxide 29 mmol/L (22-30); Chloride 101 mmol/L (98-107); Cholesterol 228 mg/dL (0-200); Estimated Glomerular Filt Rate > 60; Glucose 97 mg/dL (65-110); HDL Direct 95 mg/dL; Potassium 5.2 mmol/L (3.4-5.0); Sodium 137 mmol/L (137-145); Total Protein 7.6 g/dL (6.3-8.2); Triglycerides 59 mg/dL (<150)
[2024-11-21 13:19] LABS: LDL Cholesterol Direct 91 mg/dL
--- OUTSIDE RECORDS SUMMARY | 2024-11-21 13:24 | XMS_ITS ---
Author Name DENISE WATTS Address [address] [place] [address] Phone [facility] Address [address] [place] [address] Phone Care Team Providers Care Stave Grader Name Role Phone DO DENISE WATTS Unavailable ALLERGIES, ADVERSE REACTIONS AND ALERTS Allergy Name Allergy Date Allergy Status Allergy Severity Allergy Reaction UNKNOWN DRUG ALLERGIES MAY E XIST MEDICATIONS RxNorm Brand Name Prescription Ordered Value Order Unit Start Date Date Status Fill Status Indications [id number] Humira(C F) Pen 40 mg/0.4 mL pen injector kit SIG: Humira(CF) Pen 40 mg/0.4 mL subcutaneous pen injector kit, 28 days, Dispense #2 Each, 0 RefillsDirecti ons: Inject 0.4 mL (40 mg total) subcutaneously (under the skin) every 14 (fourteen) days 2 pen injecto r kit 2021 Current [id number] folic acid 1 mg tablet SIG: folic acid 1 mg oral tablet, 90 days, Dispense #90 Tablet, 0 RefillsDirecti ons: Take 1 oral tablet once a day 90 tablet 2021 Current [id number] methotre xate sodium 2.5 mg tablet SIG: methotrexate sodium 2.5 mg oral tablet, 28 days, Dispense #4 Tablet, 2 RefillsDirecti ons: Take 1 oral tablet per week 4 tablet 2021 Current [id number] escitalo pram oxalate 20 mg tablet SIG: escitalopram oxalate 20 mg oral tablet, 30 days, Dispense #30 Tablet, 2 RefillsDirecti ons: Take 1 oral tablet once a day 30 tablet 2021 Historic [id number] omeprazo le 20 mg capsule, delayed release( DR/EC) SIG: omeprazole 20 mg oral capsule,delaye d release(DR/EC) , 90 days, Dispense #90 Capsule, 0 RefillsDirecti ons: Take 1 oral capsule once a day 90 capsule ,delaye d release (DR/EC) 2021 Current [id number] PreserVi vivienne AREDS 2,148 mcg-113 mg-45 mg-17.4m g tablet SIG: PreserVision AREDS 2,148 mcg-113 mg-45 mg-17.4mg oral tablet, 30 days, Dispense #60 Tablet, 0 RefillsDirecti ons: Take 1 oral tablet twice a day 60 tablet 2021 Current [id number] Kenalog 0.147 mg/gram aerosol SIG: Kenalog 0.147 mg/gram topical aerosol, 63 days, Dispense #63 Gram, 0 RefillsDirecti ons: Take 1 topical gram once a day 63 aerosol 2021 Current Collagen -- capsule SIG: Collagen -- oral capsule, 30 days, Dispense #30 -, 0 RefillsDirecti ons: Take 1 oral tablet daily 30 capsule 2021 Current [id number] Vitamin D3 125 mcg (5,000 unit) tablet SIG: Vitamin D3 125 mcg (5,000 unit) oral tablet, 30 days, Dispense #30 Tablet, 0 RefillsDirecti ons: Take 1 oral tablet once a day 30 tablet 2021 Current Calcium Magnesiu m 500 mg calcium -250 mg tablet SIG: Calcium Magnesium 500 mg calcium -250 mg oral tablet, 30 days, Dispense #30 Tablet, 0 RefillsDirecti ons: Take 1 oral tablet once a day 30 tablet 2021 Current [id number] escitalo pram oxalate 20 mg tablet SIG: escitalopram oxalate 20 mg oral tablet, 90 days, Dispense #90 Tablet, 0 RefillsDirecti ons: Take 1 oral tablet once a day 90 tablet 2022 Historic [id number] escitalo pram oxalate 20 mg tablet SIG: escitalopram oxalate 20 mg oral tablet, 7 days, Dispense #7 Tablet, 0 RefillsDirecti ons: Take 1 oral tablet once a day 7 tablet 2022 023 Historic [id number] escitalo pram oxalate 20 mg tablet SIG: escitalopram oxalate 20 mg oral tablet, 90 days, Dispense #90 Tablet, 0 RefillsDirecti ons: Take 1 oral tablet once a day 90 tablet 2022 Historic [id number] ESCITALO PRAM 20MG TABLETS 20 mg tablet SIG: ESCITALOPRAM 20MG TABLETS, Dispense #90, 0 Refills, Directions: TAKE 1 TABLET BY MOUTH EVERY DAY 90 tablet 2022 Current [id number] ESCITALO PRAM 20MG TABLETS 20 mg tablet SIG: ESCITALOPRAM 20MG TABLETS, Dispense #90, 0 Refills, Directions: TAKE 1 TABLET BY MOUTH EVERY DAY 90 tablet 2022 Historic PROBLEMS Problem Code Problem Description Problem Status Problem Da te Problem End Date M50.30-Other cervical disc degeneration, unspecified cervical region Other cervical disc degeneration, unspecified cervical region Chronic 04/01/2022 I67.9-Cerebrovascular disease, unspecified Cerebrovascular disease, unspecified Chronic 10/06/2017 M48.02-SPINAL STENOSIS, CERVICAL REGION SPINAL STENOSIS, CERVICAL REGION Chronic 04/01/2022 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, left shoulder Primary osteoarthritis, left shoulder Chronic 04/01/2022 D70.9-NEUTROPENIA, UNSPECIFIED NEUTROPENIA, UNSPECIFIED Chronic 04/01/2022 M06.4-Inflammatory polyarthropathy Inflammatory polyarthropathy Chronic 04/01/2022 M35.00-SICCA SYNDROME, UNSPECIFIED SICCA SYNDROME, UNSPECIFIED Chronic 04/01/2022 L40.50-ARTHROPATHIC PSORIASIS, UNSPECIFIED ARTHROPATHIC PSORIASIS, UNSPECIFIED Chronic 04/01/2022 M85.80-OTR SPECIFIED DISORDERS OF BONE DENSITY & STRUCTURE, UNSP OTR SPECIFIED DISORDERS OF BONE DENSITY & STRUCTURE, UNSP Chronic 04/01/2022 L40.8-OTHER PSORIASIS OTHER PSORIASIS Chronic K58.8-OTHER IRRITABLE BOWEL SYNDROME OTHER IRRITABLE BOWEL SYNDROME Chronic 04/01/2022 D75.89-OTH SPEC DZ BLOOD & BLOOD-FORM ORG OTH SPEC DZ BLOOD & BLOOD-FORM ORG Chronic 04/01/2022 E78.49-OTHER HYPERLIPIDEMIA OTHER HYPERLIPIDEMIA Chronic 05/25/2022 N18.31-CHRONIC KIDNEY DISEASE, STAGE 3A CHRONIC KIDNEY DISEASE, STAGE 3A Chronic 05/25/2022 D75.89-OTH SPEC DZ BLOOD & BLOOD-FORM ORG OTH SPEC DZ BLOOD & BLOOD-FORM ORG Chronic 05/25/2022 E55.9-VITAMIN D DEFICIENCY, UNSPECIFIED VITAMIN D DEFICIENCY, UNSPECIFIED Chronic 04/01/2022 PROCEDURES Procedure Description Date Notes NO PROCEDURES PERFORMED ASSESSMENTS Assessment None PLAN OF TREATMENT Assessment Planned Activity LOINC Planned Yfn e None CONSULTATION NOTE Note Author Date None HISTORY AND PHYSICAL NOTE Note Author Date None PROGRESS NOTE Note Author Date None DISCHARGE SUMMARY Note Author Date None CHIEF COMPLAINT AND REASON FOR VISIT FUNCTIONAL STATUS Functional or Cognitive Find ing None MENTAL STATUS Cognitive Finding None ENCOUNTERS Encounter Type Provider Diagnoses Start Date Location None SOCIAL HISTORY Social Status Observation Never Smoker Sex:Female CARE TEAM INFORMATION Stave Grader Provider ID Role Location Phone DENISE WATTS [phone] PHYSICIAN [address] [place] [address]
--- OUTSIDE RECORDS SUMMARY | 2024-11-21 13:25 | XMS_ITS | Encounter Summary ---
Author Organization [facility] Address [address] [place] [address] Phone Care Team Providers Care Other Sports Official Name Role Phone Amish Aniket DO Primary Care Provider [phone] Keegan Hill DO Primary Care Provider [phone] Keegan Hill DO Unavailable [phone] Irene Mckeon RN Unavailable Unavailab marichuy Caballero III, MD, Crow Ritchie Unavailable [phone] Jazmyn Cardoso Unavailable [phone] Kamila Katz DO Primary Care Provider + Joon Scherer MD Unavailable [phone] Encounter Details Date Type Department Care Team (Late st Contact Info) Description 04/01/2022 Orders Only [facility] [address] [place] [address] Scanning, Provider Social History Tobacco Use Types Packs/Day Years Used Date Smoking Tobacco: Never Smokeless Tobacco: Never Alcohol Use Standard Drinks/Week Comments Yes 0 (1 standard drink = 0.6 oz pur e alcohol) daily 2 glasses of wine Comments No Sex and Gender Information Value Date Recorded Sex Assigned at Not on file 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 Gender Identity Not on file Sexual Orientation Not on file 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 Not on file Not on file documented as of this encounter Plan of Treatment Not on file documented as of this encounter Procedures Procedure Name Priority Date/Time Associated Diagnosis Comments SCAN - LABS 04/01/2022 documented in this encounter Results * SCAN - LABS (04/01/2022) us Provider Scanning Final Result documented in this encounter Visit Diagnoses Not on filedocumented in this encounter Care Teams Other Sports Official Relationship Specialty Start Date End Date Aniket Wellington DO PCP - General 05/29/19 04/27/22 Keegan Hill DO PCP - General Family Medicine 04/28/22 10/18/22 [place] [address] [facility] [address] [place] [address] PCP - General Family Medicine 10/19/22 Keegan Hill DO Family Medicine 04/28/22 Irene Mckeon, RN Registered Nurse 09/26/17 2 Crow Caballero III, MD [address] [place] [address] Consulting Physician Rheumatology 11/15/19 02/20/23 [place] [address] [address] [place] [address] Physician Professor Of Musicology Orthopedic Surgery 02/01/20 Joon Schreer MD [address] [place] [address] Consulting Physician Rheumatology 02/21/23 documented as of this encounter
--- OUTSIDE RECORDS SUMMARY | 2024-11-21 13:25 | XMS_ITS | Clinical Summary ---
Author Organization [facility] Address [address] [place] [address] Care Team Providers Care Wireless Technician Name Role Phone Kamila Katz Primary Care Provider [phone] Source Comments [facility],non-owned Affiliates and Associated Physician Practices is amultiple site organization consisting of ambulatory clinics and hospital sitesin [place], [place], [place] and [place]. This disclosure is being madepursuant to the Care Everywhere program and may not contain all information available regarding this patient. 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 Gender Identity Not on file Sexual Orientation Not on file Last Filed Vital Signs Vital Sign Reading Time Taken Comments Blood Pressure 131/82 04/03/2023 2:31 PM CDT Pulse 60 04/03/2023 2:32 PM CDT Temperature 36.7 C (98.1 F) 04/03/2023 11:29 AM CDT Respiratory Rate 18 04/03/2023 11:29 AM CDT Oxygen Saturation 99% 04/03/2023 2:32 PM CDT Inhaled Oxygen Concentration - - Weight 77.1 kg (170 lb) 04/03/2023 11:29 AM CDT Height 175.3 cm (5' 9) 04/03/2023 11:29 AM CDT Body Mass Index 25.1 04/03/2023 11:29 AM CDT Plan of Treatment Health Maintenance Due Date Last Done Comments BONE DENSITY TESTING 1956 COLOGUARD (AGES 45-75) - COLON CA SCREENING 1956 COLON MONITORING 1956 COLONOSCOPY - COLON CA SCREENING 1956 CT COLONOGRAPHY - COLON CA SCREENING 1956 Colorectal Cancer Screening 1956 FIT - COLON CA SCREENING 1956 FLEX SIG - COLON CA SCREENING 1956 MAMMOGRAM 1956 MEDICARE AWV 12 MONTHS 1956 HEPATITIS C SCREENING 05/02/1974 DTAP/TDAP/TD VACCINES (1 - Tdap) 1975 PNEUMOCOCCAL VACCINE 50+ (1 of 1 - PCV) 2006 ZOSTER VACCINE (1 of 2) 2006 COVID-19 VACCINE (1 - season) 2024 DEPRESSION SCREENING 06/13/2024 INFLUENZA VACCINE (Season Ended) 2025 03/13/2017, 03/13/2016, 03/13/2015, Additional history exists LIPID TESTING 04/01/2027 04/01/2022, 04/01/2022 Respiratory Syncytial Virus (RSV) Vaccine Pt: or over 60 yrs (1 - 1-dose 75+ series) 2031 HEPATITIS B VACCINE Aged Out No longe r eligible based on patient's age to complete this topic HIB VACCINE Aged Out No longer eligi ble based on patient's age to complete this topic HPV VACCINE Aged Out No longer eligi ble based on patient's age to complete this topic MENINGOCOCCAL (Group B) VACCINE SHARED DECISION-MAKING Aged Out No longer eligible based on patient's age to complete this topic MENINGOCOCCAL GROUPS A/C/Y/W VACCINE Aged Out No longer eligible based on patient's age to complete this topic Insurance MEDICARE MEDICARE SUPPLEMENT PAYOR GENERIC Care Teams Wireless Technician Relationship Specialty Start Date End Date Kamila Katz DO [address] [facility] [address] [place] [id number] PCP - General Family Medicine 04/03/23
--- OUTSIDE RECORDS SUMMARY | 2024-11-21 13:25 | XMS_ITS | Referral Summary ---
Author Organization [facility] Address [address] [place] [address] Phone Care Team Providers Care Food And Drug Research Scientist Name Role Phone Keegan Hill DO Unavailable [phone] Jazmyn Cardoso Unavailable Kamila Katz DO Primary Care Provider + Joon Scherer MD Unavailable [phone] Encounters Date Type Department Care Team Description 10/25/2024 Telephone [facility] Op[facility]mology [address] [place] [address] Ernie Martino MD 09/20/2024 Results Follow-Up [facility] [address] [place] [phone] Teri Norwood PA Comprehensive metabolic panel, CBC with auto differential 09/19/2024 8:45 AM CDT Office Visit [facility] [address] [place] [phone] Teri Norwood PA Psoriatic arthritis (HCC) (Primary Dx); Psoriasis; Sjogren's syndrome, with unspecified organ involvement; Encounter for medication monitoring from Last 3 Months Allergies No known active allergies Medications escitalopram (LEXAPRO) 20 mg tablet Take 20 mg by mouth every morning 07/14/2018 Active clobetasoL (TEMOVATE) 0.05 % external solution CASTRO 1 ML EXT TO THE SCALP HS FOR 2 WKS 02/21/2020 Active folic acid (FOLVITE) 1 mg tablet TAKE 1 TABLET BY MOUTH DAILY 90 tablet 1 06/24/2022 Active methotrexate 2.5 mg tabletIndicatio ns:autoimmune disease Take 8 tablets (20 mg total) by mouth every 7 days 96 tablet 1 07/10/2024 Active Active Problems Problem Noted Date Diagnosed Date Vaccine counseling 05/13/2021 Assessment & Plan (05/13/2021 10:44 AM HEARING INSTRUMENT SPECIALIST): Received Pfizer booster Recommend she get Shingrix Recommend she get [id number] and then 8+ weeks later get [id number] Closed nondisplaced fracture of styloid process of radius with routine healing 01/27/2021 Assessment & Plan (01/27/2021 10:48 AM CDT): Patient's MRI did confirm the presence of a nondisplaced radial styloid fracture. Patient is to continue with a wrist control splint and appears to be healing. 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 If this causes persistent issues reconstruction may be required Assessment & Plan (01/05/2021 11:47 AM CDT): Patient likely acutely disrupted scapholunate ligament. She may have a scaphoid fracture as well if she has bone pain directly over the scaphoid with a large effusion. Patient was protected with a thumb spica splint and would obtain an MRI to evaluate the structures of the wrist. Would avoid any heavy lifting pushing or pulling with the hand. The patient is retired and did not need a work note Psoriasis 07/04/2020 Assessment & Plan (09/18/2024 2:24 PM CDT): Will continue as above. Assessment & Plan (05/22/2024 8:17 AM HEARING INSTRUMENT SPECIALIST): Will continue as above. Assessment & Plan (01/17/2024 3:40 PM CDT): Will continue as above. Assessment & Plan (09/26/2023 12:44 PM CDT): Will continue as above. Assessment & Plan (05/20/2023 2:40 PM HEARING INSTRUMENT SPECIALIST): Will continue as above. Assessment & Plan (02/21/2023 12:29 PM CDT): Will continue as above. Assessment & Plan (10/18/2022 9:57 AM CDT): Will continue as above. Assessment & Plan (07/21/2022 12:51 PM HEARING INSTRUMENT SPECIALIST): Will continue as above. Assessment & Plan (05/26/2022 12:58 PM HEARING INSTRUMENT SPECIALIST): Will continue as above. Assessment & Plan (02/24/2022 3:15 PM CDT): Will continue as above. Assessment & Plan (11/16/2021 1:01 PM CDT): Will continue as above. Assessment & Plan (08/12/2021 8:58 AM HEARING INSTRUMENT SPECIALIST): Will continue as above. Assessment & Plan (05/13/2021 8:58 AM HEARING INSTRUMENT SPECIALIST): Will continue as above. Assessment & Plan (03/11/2021 11:32 AM CDT): Will continue as above. Assessment & Plan (12/10/2020 12:14 PM CDT): Will continue Humira as above. Consider follow up with derm for possible topical treatments in the meantime - she will see if her PCP can recommend a freight rate analyst closer to her home. Assessment & Plan (09/05/2020 9:53 AM CDT): Flaring on scalp, minimal in L ear. Humira as above. Consider follow up with derm for possible topical treatments in the meantime. Assessment & Plan (07/04/2020 11:02 AM HEARING INSTRUMENT SPECIALIST): Flaring on scalp, minimal in L ear. Will add Humira as above. Consider follow up with derm for possible topical treatments in the meantime. Encounter for medication monitoring 01/30/2020 Assessment & Plan (09/18/2024 2:24 PM CDT): Hepatitis negative 11/2019 Tspot negative 07/2022 Continue routine lab monitoring Assessment & Plan (05/22/2024 8:17 AM HEARING INSTRUMENT SPECIALIST): Hepatitis negative 11/2019 Tspot negative 07/2022 Continue routine lab monitoring Assessment & Plan (01/17/2024 3:40 PM CDT): Hepatitis negative 11/2019 Tspot negative 07/2022 Continue routine lab monitoring Assessment & Plan (09/26/2023 12:44 PM CDT): Hepatitis negative 11/2019 Tspot negative 07/2022 Continue routine lab monitoring Assessment & Plan (05/20/2023 2:40 PM HEARING INSTRUMENT SPECIALIST): Hepatitis negative 11/2019 Tspot negative 07/2022 Continue routine lab monitoring Assessment & Plan (02/21/2023 12:29 PM CDT): Hepatitis negative 11/2019 Tspot negative 07/2022 Continue routine lab monitoring Assessment & Plan (10/18/2022 10:00 AM CDT): Hepatitis negative 11/2019 Tspot negative 07/2022 Continue routine lab monitoring Assessment & Plan (07/21/2022 12:51 PM HEARING INSTRUMENT SPECIALIST): Hepatitis negative 11/2019 Continue routine lab monitoring Assessment & Plan (05/26/2022 12:58 PM HEARING INSTRUMENT SPECIALIST): Hepatitis negative 11/2019 Continue routine lab monitoring Assessment & Plan (02/24/2022 3:15 PM CDT): Hepatitis negative 11/2019 Continue routine lab monitoring Assessment & Plan (11/16/2021 1:01 PM CDT): Hepatitis negative 11/2019 Continue routine lab monitoring Assessment & Plan (08/12/2021 8:58 AM HEARING INSTRUMENT SPECIALIST): Hepatitis negative 11/2019 Continue routine lab monitoring Assessment & Plan (05/13/2021 8:58 AM HEARING INSTRUMENT SPECIALIST): Hepatitis negative 11/2019 Continue routine lab monitoring Assessment & Plan (03/11/2021 8:58 AM CDT): Hepatitis negative 11/2019 Continue routine lab monitoring Assessment & Plan (12/09/2020 4:03 PM CDT): Hepatitis negative 11/2019 Continue routine lab monitoring Assessment & Plan (09/04/2020 10:19 AM CDT): Hepatitis negative 11/2019 Continue routine lab monitoring Assessment & Plan (07/02/2020 3:54 PM HEARING INSTRUMENT SPECIALIST): Hepatitis negative 11/2019 Continue routine lab monitoring Assessment & Plan (04/03/2020 4:24 PM CDT): Hepatitis negative 11/2019 Continue routine lab monitoring Assessment & Plan (03/04/2020 1:11 PM CDT): Hepatitis negative 11/2019 Continue routine lab monitoring Assessment & Plan (01/30/2020 12:55 PM CDT): Hepatitis negative 11/2019 Continue routine lab monitoring Traumatic complete tear of left rotator cuff Assessment & Plan (01/01/2020 3:12 PM CDT): Patient has a complete tear of the subscapularis with tendinopathy of the supraspinatus and infraspinatus. She is having ongoing pain since the trauma and as such I would recommend open repair of the rotator cuff and pathology found on her MRI. This can generally be comfortably performed on outpatient basis using a deltoid mini splitting incision and a pain pump. There is risks of infection, incisional numbness, hypersensitive scar, blood loss blood clots, recurrent tearing, damage to the axillary nerve axillary artery, deltoid muscle, medical and anesthetic risks including is willing to proceed. Rupture of left proximal biceps tendon 0 Assessment & Plan (01/01/2020 3:11 PM CDT): Patient has a displaced long head of the biceps tendon. Would recommend biceps tenodesis to help stabilize the condition reduce pain in the shoulder. The patient was advised this can break loose again or completely rupture and withdrawal producing a cosmetic deformity in the arm. Stabilizing the biceps may help prevent later retraction Arthritis of left acromioclavicular joint 2019 Assessment & Plan (01/01/2020 3:10 PM CDT): Patient has pronounced arthritis of the left acromioclavicular joint. This is producing impingement on the rotator cuff tendon and at the time of surgery would recommend resection of the distal in the clavicle to help decompress any pressure on the rotator cuff Psoriatic arthritis 12/06/2019 Overview (09/26/2023): Labs AVISE: +MIRA 1:160 speckled, Ro60 IgG 810, SSB 16, Ps/Pt IgG 38 WBC 2.6 with ANC 1284 Hepatitis negative Xrays 12/06/2019 XR L foot - negative XR L hand - negative XR R foot - 2 small screws are seen in the distal shaft of the right 1st metatarsal. XR R hand - negative Ultrasound 12/10/2019 US R hand/wrist: grade 1 PD of the extensor and profundus tendon insertions of the DIPs. Moderate thickening/effusion with grade 2 PD wrist. Moderate 2nd and 3rd MCP thickening with moderate/marked 2nd PIP and marked 3rd PIP thickening. Grade 1 PD of the 2nd PIP. Assessment & Plan (09/19/2024 9:48 AM CDT): Cdai in remission. Favor L 2nd DIP pain 2/2 OA. Denies inflammatory sounding pain. Will continue Simponi aria with methotrexate 20 mg po weekly with folic acid 1 mg daily and monitor. Labs as below. Plan for follow up in 4 months to reassess or sooner as needed. Assessment & Plan (05/22/2024 10:26 AM HEARING INSTRUMENT SPECIALIST): Cdai in remission. Will continue Simponi aria with methotrexate 20 mg po weekly with folic acid 1 mg daily and monitor. Labs as below. Plan for follow up in 4 months to reassess or sooner as needed. Assessment & Plan (01/23/2024 9:30 AM CDT): Low cdai. Will continue Simponi aria with methotrexate 20 mg po weekly with folic acid 1 mg daily and monitor. Labs as below. Plan for follow up in 4 months to reassess or sooner as needed. Assessment & Plan (09/26/2023 12:44 PM CDT): Cdai increased from prior. Notes concern that she may be losing response to Simponi aria, seemed to wear off ~2 weeks before her last dose and did not notice her usual degree of benefit after her dose on 09/05. Due to symptom severity offered a triamcinolone injection. 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 She was interested in trying the steroid; discussed that if she flares again shortly after the steroid shot, then will consider adding another oral dmard vs changing Simponi aria. In the meantime will continue Simponi aria with methotrexate 20 mg po weekly with folic acid 1 mg daily and monitor. Labs as below. Plan for follow up in 4 months to reassess or sooner as needed. Assessment & Plan (05/23/2023 9:15 AM HEARING INSTRUMENT SPECIALIST): Low cdai. She does have persistent synovitis on exam but denies any joint pain/stiffness. At this time she is not interested in considering any change in her regimen; discussed that should the swelling persist and she wishes to try something else, we could either add another oral dmard or switch Simponi aria. Otherwise will continue Simponi aria with methotrexate 20 mg po weekly with folic acid 1 mg daily and monitor. Labs as below. Plan for follow up in 4 months to reassess or sooner as needed. Assessment & Plan (02/21/2023 12:29 PM CDT): Cdai improved from 11 to 8 and she notes improvement since starting Simponi aria. Uncertain of the cause of the intermittent swelling with white discoloration of her L 3rd DIP, it is not flaring currently and exam of that joint today is normal. She will monitor this and try to send us a picture if/when it flares again. Otherwise will continue Simponi aria with methotrexate 20 mg po weekly with folic acid 1 mg daily and monitor. Labs as below. Plan for follow up in 4 months to reassess or sooner as needed. Assessment & Plan (10/19/2022 10:50 AM CDT): Cdai improved to 11. She has completed loading of Simponi aria without AE and believes she is already noticing benefit. Will continue Simponi aria with methotrexate 20 mg po weekly with folic acid 1 mg daily and allow more time for effect. Labs as below. Plan for follow up in 3-4 months to reassess or sooner as needed. Assessment & Plan (07/22/2022 11:46 AM HEARING INSTRUMENT SPECIALIST): High cdai. Denies any benefit with Humira. Her insurance has switched to Medicare, will again check benefits for Simponi aria. Due to burden of disease and minimal response to IM triamcinolone in May, will try prednisone taper to help bridge to starting infusions. She is aware of the risks of steroids. Will continue methotrexate 20 mg po weekly with folic acid 1 mg daily. Labs as below. Plan for follow up in 2-3 months to reassess or sooner as needed. Assessment & Plan (05/27/2022 11:20 AM HEARING INSTRUMENT SPECIALIST): High cdai. Denies any benefit with Humira. Her insurance will switch to Medicare in ?July. We have previously discussed likely switch to Simponi aria once on Medicare; given this and her disease activity, certainly thing that we should make this change. She is not eager to do an infusion, but she is agreeable to this for now. She will call us to confirm whether she will have hr current insurance in June because we could likely start Simponi aria with this and then check benefits again once it switches to Medicare. Will continue methotrexate 20 mg po weekly with folic acid 1 mg daily. Due to burden of disease will give patient a triamcinolone injection. 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 Plan for follow up in 8 weeks to reassess or sooner as needed. Assessment & Plan (02/25/2022 12:01 PM CDT): Moderate cdai. Discussed that though she is improved from last visit and she feels that symptoms are largely mild, she does remain above goal. She still prefers not to make any significant changes now as she will switch to Medicare at the end of the year and will likely need to switch to an infused medication at that point. Again discussed likely switch to Simponi aria. For now, will continue methotrexate 20 mg po weekly with folic acid 1 mg daily and Humira 40 mg SQ every 2 weeks. Plan for follow up in 3 months to reassess or sooner as needed. Assessment & Plan (11/17/2021 9:32 AM CDT): High cdai. Previously felt stable on current regimen and prefers not to make any significant changes now, particularly as she will switch to Medicare at the end of the year and will likely need to switch to an infused medication at that point. For now, will continue methotrexate 20 mg po weekly with folic acid 1 mg daily and Humira 40 mg SQ every 2 weeks. Due to burden of disease will give patient a triamcinolone injection. Patient states she is aware of SE of steroids and is agreeable to use. Labs as below due next month. As she is travelling a great deal this summer, we can plan for her routine follow up in 3 months to reassess, but she will call if flare persists/recurs. Assessment & Plan (08/12/2021 10:35 AM HEARING INSTRUMENT SPECIALIST): Increased synovitis by exam today though her cdai remains low and she continues to feel improved/stable on current regimen. She will switch to Medicare at the end of the year, will likely need to switch to an infused medication at that point, likely Simponi aria which was discussed today. For now, will continue methotrexate 20 mg po weekly with folic acid 1 mg daily and Humira 40 mg SQ every 2 weeks. Labs as below. Plan for follow up in 3 months to reassess or sooner as needed. Assessment & Plan (05/13/2021 10:44 AM HEARING INSTRUMENT SPECIALIST): Low cdai. Overall feels improved and stable on current regimen. Will continue methotrexate 20 mg po weekly with folic acid 1 mg daily and Humira 40 mg SQ every 2 weeks. Labs as below due in June. Plan for follow up in 3 months to reassess or sooner as needed. Assessment & Plan (03/11/2021 11:31 AM CDT): Low cdai. Overall feels improved and stable on current regimen. Will continue methotrexate 20 mg po weekly with folic acid 1 mg daily and Humira 40 mg SQ every 2 weeks. Labs today as below. Plan for follow up in 3 months to reassess or sooner as needed. Assessment & Plan (12/10/2020 12:14 PM CDT): Low cdai. On Humira for ~4 months and she reports significant symptomatic improvement in her hands, though no benefit to her psoriasis. Despite her improved joint symptoms, she does still have significant synovitis by exam. Discussed consideration for change from Humira to an IL-17 or perhaps Otezla; however she declines as she is very happy with how her hand symptoms have improved and is nervous to consider switching now. Will continue methotrexate 20 mg po weekly with folic acid 1 mg daily and Humira 40 mg SQ every 2 weeks and allow more time for effect; if she has persistent synovitis at follow up will consider change in Humira, may repeat hand ultrasound to help solidify that decision. Recent labs stable. Plan for follow up in 2-3 months to reassess or sooner as needed. Assessment & Plan (09/05/2020 9:52 AM CDT): Moderate cdai. Started Humira, has received three doses without issue. Will continue methotrexate 20 mg po weekly with folic acid 1 mg daily with Humira 40 mg SQ every 2 weeks and allow time for effect. Labs as below in 1 month. Plan for follow up in 3 months to reassess or sooner as needed. Assessment & Plan (07/04/2020 11:01 AM HEARING INSTRUMENT SPECIALIST): Moderate cdai of 19 with significant synovitis and psoriasis flaring on scalp again. Pt expressed concern that the psoriasis flare was 2/2 LDN, discussed that I suspect this is unlikely and given the persistent synovitis by exam suspect that it is a reflection of her overall active/flaring disease. At this time, recommend the addition of a biologic such as Humira or Enbrel. Check quant gold today and pt should have baseline chest xray. Continue methotrexate 20 mg po weekly with folic acid 1 mg daily. Labs today as below. Plan for follow up in 2 months to reassess or sooner as needed. Assessment & Plan (04/04/2020 12:22 PM CDT): Moderate cdai. On methotrexate 20 mg po weekly with folic acid 1 mg daily without adverse effects. Recent labs stable. Will continue methotrexate and allow more time for effect. Plan for follow up in 3 months to reassess or sooner as needed. Assessment & Plan (03/05/2020 12:17 PM CDT): Moderate cdai. On methotrexate 15 mg po weekly with folic acid 1 mg daily without adverse effects, obtain labs today as below and increase methotrexate to 20 mg po weekly now. Plan for follow up in 4 weeks to reassess or sooner as needed. Assessment & Plan (01/31/2020 10:06 AM CDT): By exam she has significant synovitis throughout bilateral hands with a moderate cdai. On methotrexate 10 mg po weekly with folic acid 1 mg daily without adverse effects, obtain labs today as below and increase methotrexate to 15 mg po weekly now. Plan for follow up in 4 weeks to reassess or sooner as needed. Assessment & Plan (12/20/2019 10:48 AM CDT): 64yoF presents for evaluation due to joint pain with AM stiffness for 30 minutes. By exam she has significant synovitis throughout bilateral hands and she has a rash on her neck at the hairline which is concerning for psoriasis. She also reports fatigue, sicca symptoms, hair thinning, and h/o photosensitive rashes. Our workup revealed MIRA 1:160, Ro60 IgG 810, SSB 16, WBC 2.6 with ANC 1284, unremarkable XRs, and hand US with moderate/marked inflammatory changes as well as grade 1 PD a the extensor and profundus tendon insertions of the DIPs. Overall based upon history, exam, and findings of workup there is concern for possible PsA vs lupus vs overlap. Discussed that hydroxychloroquine can cause worsening of psoriasis. Will initiate treatment with methotrexate 10 mg po weekly with folic acid 1 mg daily. Reviewed potential adverse effects including nausea, fatigue, and oral ulcers. Warned to watch for development of any rash and to stop taking and call should this occur. Reviewed need for routine lab monitoring throughout the duration of taking this medication, initially monthly and then quarterly as long as they remain on the medication. Plan for follow up in 4 weeks to reassess or sooner as needed. Assessment & Plan (12/06/2019 11:42 AM CDT): 64yoF presents for evaluation due to joint pain with AM stiffness for 30 minutes. By exam she has significant synovitis throughout bilateral hands and she has a rash on her neck at the hairline which is concerning for psoriasis. Overall suspect PsA at this time. To fully evaluate will check appropriate serologies, xrays, and ultrasound with plan for follow up in 2 weeks to review results and to discuss treatment options. Rash 12/06/2019 Assessment & Plan (12/20/2019 10:41 AM CDT): Pt reports rash of many years duration on her neck, treating with topical triamcinolone. Discussed that suspect this may represent psoriasis, recommend dermatology evaluation. Assessment & Plan (12/06/2019 11:40 AM CDT): Pt reports rash of many years duration on her neck, treating with topical triamcinolone. Discussed that suspect this may represent psoriasis, recommend dermatology evaluation. Rotator cuff tendinitis, left 04/17/2019 Assessment & Plan (04/17/2019 2:02 PM HEARING INSTRUMENT SPECIALIST): Patient's history and exam is consistent with rotator cuff tendinitis with impingement. After reviewing the treatment options patient elected undergo a cortisone injection. She may find physical therapy helpful to strength in the arm and improve her posture which can affect the kinetics of the shoulder joint. Closed fracture of lateral portion of right tibi al plateau 08/28/2018 Cervicalgia 09/26/2017 Cervical radiculopathy 09/26/2017 Routine general medical exam ination at a health care facility 09/04/2017 Assessment & Plan (09/04/2017 5:16 PM CDT): Pt aware of importance of healthy lifestyle-proper caloric intake and exercise regimen. BMI 26.0-26.9,adult 09/04/2017 Assessment & Plan (09/04/2017 5:18 PM CDT): Weight is unchanged. Discussed the patient's BMI. The BMI is above average; BMI management plan is completed. General weight loss/lifestyle modification strategies discussed (elicit support from others; identify saboteurs; non-food rewards, etc). Short-term memory loss 09/02/2017 Assessment & Plan (09/04/2017 5:11 PM CDT): Plan to check CBC, TSH, CMP and Vitamin B12. Arrange MRI of brain. Neck pain 09/02/2017 Assessment & Plan (09/04/2017 5:13 PM CDT): Plan to obtain cervical spine films. Start meloxicam 15 mg daily. Orphenadrine 100 mg BID prn. Consider pain management for evaluation. Dermatitis 07/29/2014 Overview (09/18/2016): Dermatitis Tendinitis of shoulder 04/22/2014 Overview (09/18/2016): Rotator cuff tendonitis Episode of recurrent major depressive disorder 0 10/10/2012 Overview (09/17/2016): Depression Assessment & Plan (05/27/2022 11:24 AM HEARING INSTRUMENT SPECIALIST): Feels that this is worse due to her poorly controlled joint/skin disease which is understandable. However, advised her to call her PCP about this as well to discuss whether there is anything more that could be done. Assessment & Plan (09/04/2017 5:17 PM CDT): Psychological condition is well controlled. . Continue current treatment regimen. Psychological condition will be reassessed at the next regular appointment. Sjogren's syndrome 10/10/2012 Overview (09/17/2016): Sjogren's disease Assessment & Plan (09/18/2024 2:24 PM CDT): Pt reports prior dx of Sjogren's and recalls having been treated with hydroxychloroquine in the past. Labs show +MIRA, Ro60, and SSB c/w Sjogren's. Recommend conservative treatment including frequent sips of water, Biotene mouthwash, artificial tears, and use of a humidifier at home. Pt should see the dentist and eye doctor regularly. Assessment & Plan (05/22/2024 8:17 AM HEARING INSTRUMENT SPECIALIST): Pt reports prior dx of Sjogren's and recalls having been treated with hydroxychloroquine in the past. Labs show +MIRA, Ro60, and SSB c/w Sjogren's. Recommend conservative treatment including frequent sips of water, Biotene mouthwash, artificial tears, and use of a humidifier at home. Pt should see the dentist and eye doctor regularly. Assessment & Plan (01/17/2024 3:40 PM CDT): Pt reports prior dx of Sjogren's and recalls having been treated with hydroxychloroquine in the past. Labs show +MIRA, Ro60, and SSB c/w Sjogren's. Recommend conservative treatment including frequent sips of water, Biotene mouthwash, artificial tears, and use of a humidifier at home. Pt should see the dentist and eye doctor regularly. Assessment & Plan (09/26/2023 12:44 PM CDT): Pt reports prior dx of Sjogren's and recalls having been treated with hydroxychloroquine in the past. Labs show +MIRA, Ro60, and SSB c/w Sjogren's. Recommend conservative treatment including frequent sips of water, Biotene mouthwash, artificial tears, and use of a humidifier at home. Pt should see the dentist and eye doctor regularly. Assessment & Plan (05/20/2023 2:40 PM HEARING INSTRUMENT SPECIALIST): Pt reports prior dx of Sjogren's and recalls having been treated with hydroxychloroquine in the past. Labs show +MIRA, Ro60, and SSB c/w Sjogren's. Recommend conservative treatment including frequent sips of water, Biotene mouthwash, artificial tears, and use of a humidifier at home. Pt should see the dentist and eye doctor regularly. Assessment & Plan (02/21/2023 12:29 PM CDT): Pt reports prior dx of Sjogren's and recalls having been treated with hydroxychloroquine in the past. Labs show +MIRA, Ro60, and SSB c/w Sjogren's. Recommend conservative treatment including frequent sips of water, Biotene mouthwash, artificial tears, and use of a humidifier at home. Pt should see the dentist and eye doctor regularly. Assessment & Plan (10/18/2022 9:57 AM CDT): Pt reports prior dx of Sjogren's and recalls having been treated with hydroxychloroquine in the past. Labs show +MIRA, Ro60, and SSB c/w Sjogren's. Recommend conservative treatment including frequent sips of water, Biotene mouthwash, artificial tears, and use of a humidifier at home. Pt should see the dentist and eye doctor regularly. Assessment & Plan (07/21/2022 12:50 PM HEARING INSTRUMENT SPECIALIST): Pt reports prior dx of Sjogren's and recalls having been treated with hydroxychloroquine in the past. Labs show +MIRA, Ro60, and SSB c/w Sjogren's. Recommend conservative treatment including frequent sips of water, Biotene mouthwash, artificial tears, and use of a humidifier at home. Pt should see the dentist and eye doctor regularly. Assessment & Plan (05/26/2022 12:58 PM HEARING INSTRUMENT SPECIALIST): Pt reports prior dx of Sjogren's and recalls having been treated with hydroxychloroquine in the past. Labs show +MIRA, Ro60, and SSB c/w Sjogren's. Recommend conservative treatment including frequent sips of water, Biotene mouthwash, artificial tears, and use of a humidifier at home. Pt should see the dentist and eye doctor regularly. Assessment & Plan (02/24/2022 3:15 PM CDT): Pt reports prior dx of Sjogren's and recalls having been treated with hydroxychloroquine in the past. Labs show +MIRA, Ro60, and SSB c/w Sjogren's. Recommend conservative treatment including frequent sips of water, Biotene mouthwash, artificial tears, and use of a humidifier at home. Pt should see the dentist and eye doctor regularly. Assessment & Plan (11/16/2021 1:01 PM CDT): Pt reports prior dx of Sjogren's and recalls having been treated with hydroxychloroquine in the past. Labs show +MIRA, Ro60, and SSB c/w Sjogren's. Recommend conservative treatment including frequent sips of water, Biotene mouthwash, artificial tears, and use of a humidifier at home. Pt should see the dentist and eye doctor regularly. Assessment & Plan (08/12/2021 8:58 AM HEARING INSTRUMENT SPECIALIST): Pt reports prior dx of Sjogren's and recalls having been treated with hydroxychloroquine in the past. Labs show +MIRA, Ro60, and SSB c/w Sjogren's. Recommend conservative treatment including frequent sips of water, Biotene mouthwash, artificial tears, and use of a humidifier at home. Pt should see the dentist and eye doctor regularly. Assessment & Plan (05/13/2021 8:58 AM HEARING INSTRUMENT SPECIALIST): Pt reports prior dx of Sjogren's and recalls having been treated with hydroxychloroquine in the past. Labs show +MIRA, Ro60, and SSB c/w Sjogren's. Recommend conservative treatment including frequent sips of water, Biotene mouthwash, artificial tears, and use of a humidifier at home. Pt should see the dentist and eye doctor regularly. Assessment & Plan (03/11/2021 8:59 AM CDT): Pt reports prior dx of Sjogren's and recalls having been treated with hydroxychloroquine in the past. Labs show +MIRA, Ro60, and SSB c/w Sjogren's. Recommend conservative treatment including frequent sips of water, Biotene mouthwash, artificial tears, and use of a humidifier at home. Pt should see the dentist and eye doctor regularly. Assessment & Plan (12/10/2020 12:15 PM CDT): Pt reports prior dx of Sjogren's and recalls having been treated with hydroxychloroquine in the past. Labs show +MIRA, Ro60, and SSB c/w Sjogren's. Recommend conservative treatment including frequent sips of water, Biotene mouthwash, artificial tears, and use of a humidifier at home. Pt should see the dentist and eye doctor regularly. Assessment & Plan (09/04/2020 10:20 AM CDT): Pt reports prior dx of Sjogren's and recalls having been treated with hydroxychloroquine in the past. Labs show +MIRA, Ro60, and SSB c/w Sjogren's. Recommend conservative treatment including frequent sips of water, Biotene mouthwash, artificial tears, and use of a humidifier at home. Pt should see the dentis and eye doctor regularly. Assessment & Plan (07/04/2020 11:02 AM HEARING INSTRUMENT SPECIALIST): Pt reports prior dx of Sjogren's and recalls having been treated with hydroxychloroquine in the past. Labs show +MIRA, Ro60, and SSB c/w Sjogren's. Recommend conservative treatment including frequent sips of water, Biotene mouthwash, artificial tears, and use of a humidifier at home. Pt should see the dentis and eye doctor regularly. Assessment & Plan (04/03/2020 4:23 PM CDT): Pt reports prior dx of Sjogren's and recalls having been treated with hydroxychloroquine in the past. Labs show +MIRA, Ro60, and SSB c/w Sjogren's. Recommend conservative treatment including frequent sips of water, Biotene mouthwash, artificial tears, and use of a humidifier at home. Pt shoulder see the dentist every 3 months and maintain regular follow up with the eye doctor as well. Assessment & Plan (03/04/2020 1:11 PM CDT): Pt reports prior dx of Sjogren's and recalls having been treated with hydroxychloroquine in the past. Labs show +MIRA, Ro60, and SSB c/w Sjogren's. Recommend conservative treatment including frequent sips of water, Biotene mouthwash, artificial tears, and use of a humidifier at home. Pt shoulder see the dentist every 3 months and maintain regular follow up with the eye doctor as well. Assessment & Plan (01/30/2020 12:52 PM CDT): Pt reports prior dx of Sjogren's and recalls having been treated with hydroxychloroquine in the past. Labs show +MIRA, Ro60, and SSB c/w Sjogren's. Recommend conservative treatment including frequent sips of water, Biotene mouthwash, artificial tears, and use of a humidifier at home. Pt shoulder see the dentist every 3 months and maintain regular follow up with the eye doctor as well. Assessment & Plan (12/20/2019 10:46 AM CDT): Pt reports prior dx of Sjogren's and recalls having been treated with hydroxychloroquine in the past. Labs show +MIRA, Ro60, and SSB c/w Sjogren's. Recommend conservative treatment including frequent sips of water, Biotene mouthwash, artificial tears, and use of a humidifier at home. Pt shoulder see the dentist every 3 months and maintain regular follow up with the eye doctor as well. Immunizations Immunization Administration Dates Next Due Influenza, Quadrivalent, Split, Intramuscular Influenza, Trivalent, IM (MDV) 03/13/2015,2011 Influenza, Trivalent, Preservative Free, Intramu scular 03/13/2013 Influenza, Unspecified 03/13/2017 Tdap 10/10/2012 Social History Tobacco Use Types Packs/Day Years Used Date Smoking Tobacco: Never Smokeless Tobacco: Never Alcohol Use Standard Drinks/Week Comments Yes 0 (1 standard drink = 0.6 oz pur e alcohol) daily 2 glasses of wine Comments No Sex and Gender Information Value Date Recorded Sex Assigned at Not on file Legal Sex Female 10:40 AM HEARING INSTRUMENT SPECIALIST Gender Identity Not on file Sexual Orientation Not on file 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 Not on file Not on file Last Filed Vital Signs Vital Sign Reading Time Taken Comments Blood Pressure 120/80 09/19/2024 9:01 AM CDT Pulse 78 09/19/2024 9:01 AM CDT Temperature 36.6 C (97.9 F) 08/12/2021 10:11 AM HEARING INSTRUMENT SPECIALIST Respiratory Rate 13 02/01/2020 11:4 5 AM CDT Oxygen Saturation 95% 09/19/2024 9:01 AM CDT Inhaled Oxygen Concentration - - Weight 79.7 kg (175 lb 12.8 oz) 09/19/2024 9:01 AM CDT Height 175.3 cm (5' 9) 09/19/2024 9:01 AM CDT Body Mass Index 25.96 09/19/2024 9:01 AM CDT Plan of Treatment Not on file Procedures Procedure Name Priority Date/Time Associated Diagnosis Comments CBC WITH AUTO DIFFERENTIAL Routine 09/19/2024 9:20 AM CDT Encounter for medication monitoring COMPREHENSIVE METABOLIC PANEL Routine 09/19/2024 9:20 AM CDT Encounter for medication monitoring SCREENING MAMMOGRAM BILATERAL W PETE Schedule Routine, Read Routine (OP Routine) 07/05/2024 8:28 AM HEARING INSTRUMENT SPECIALIST Screening mammogram, encounter for DEXA AXIAL SKELETON BONE DENSITY 1 OR MORE SITES Schedule Routine, Read Routine (OP Routine) 05/12/2022 10:01 AM HEARING INSTRUMENT SPECIALIST Asymptomatic menopausal state Other specified disorders of bone density and structure, unspecified site HEPATITIS C ANTIBODY Routine 12/06/2019 10:39 AM CDT Polyarthralgia Encounter for screening for other viral diseases from Last 3 Months or Most Recently Relevant to Health Maintenance Results * (ABNORMAL) CBC with auto differential (09/19/2024 9:20 AM CDT) WBC 4.1 3.8 - 10.8 Thousand/u L [facility] RBC, POC 4.04 3.80 - 5.10 Million/uL [facility] Hgb 13.6 11.7 - 15.5 g/dL [facility] Hct 41.1 35.0 - 45.0 % [facility] MCV 101.7(H) 80.0 - 100.0 fL [facility] MCH 33.7(H) 27.0 - 33.0 pg [facility] MCHC 33.1 32.0 - 36.0 g/dL [facility] Comment: For adults, a slight decrease in the calculated MCHC value (in the range of 30 to 32 g/dL) is most likely not clinically significant; however, it should be interpreted with caution in correlation with other red cell parameters and the patient's clinical condition. Rdw 13.0 11.0 - 15.0 % [facility] Platelets 185 140 - 400 Thousand/u L [facility] MPV 10.6 7.5 - 12.5 fL [facility] Neutrophils, abs 1,849 1,500 - 7,800 cells/uL [facility] Lymphocytes, abs 1,685 850 - 3,900 cells/uL [facility] Monocyte abs 406 200 - 950 cells/uL [facility] Eosinophils, abs 139 15 - 500 cells/uL [facility] Basophils, abs 21 0 - 200 cells/uL [facility] Neutrophils 45.1 % [facility] Lymphocyte pct 41.1 % [facility] Monocytes 9.9 % [facility] Eosinophils 3.4 % [facility] Basophils 0.5 % [facility] Blood 09/19/2024 9:20 AM CDT 09/19/2024 9:20 AM CDT us Teri [facility] LAB BLOOD ORDERABLES Ifrah l Result [facility] [address] [place] [address] * Comprehensive metabolic panel (09/19/2024 9:20 AM CDT) Pathologist [facility] Glucose 91 65 - 99 mg/dL [facility] Comment: Fasting reference interval BUN 20 7 - 25 mg/dL [facility] Creatinine 0.78 0.50 - 1.05 mg/dL [facility] eGFR 83 > OR = 60 mL/min/1.7 3m2 [facility] BUN/creat ratio SEE NOTE: 6 - 22 (calc) [facility] Comment: Not Reported: BUN and Creatinine are within reference range. Sodium 138 135 - 146 mmol/L [facility] Potassium, pl 4.8 3.5 - 5.3 mmol/L [facility] Chloride 102 98 - 110 mmol/L [facility] CO2 32 20 - 32 mmol/L [facility] Calcium 9.5 8.6 - 10.4 mg/dL [facility] Protein, sr 6.7 6.1 - 8.1 g/dL [facility] Albumin 4.0 3.6 - 5.1 g/dL [facility] GLOBULIN 2.7 1.9 - 3.7 g/dL (calc) [facility] Alb/glob ratio 1.5 1.0 - 2.5 (calc) [facility] Bilirubin, total 0.5 0.2 - 1.2 mg/dL [facility] Alk phos 60 37 - 153 U/L [facility] AST 14 10 - 35 U/L [facility] ALT (SGPT) 14 6 - 29 U/L [facility] Blood 09/19/2024 9:20 AM CDT 09/19/2024 9:20 AM CDT Teri DAVE LAB BLOOD ORDERABLES Ifrah l Result [facility] [address] [place] [address] * Screening Mammogram Bilateral W Pete (07/05/2024 8:28 AM HEARING INSTRUMENT SPECIALIST) Anatomical Region Laterality Modality Breast Bilateral Mammography 07/05/2024 9:08 AM HEARING INSTRUMENT SPECIALIST Impressions 07/05/2024 9:08 AM HEARING INSTRUMENT SPECIALIST No evidence of malignancy in either breast. FINAL ASSESSMENT: BI-RADS Category 1: Negative. RECOMMENDATION: Recommend return for annual screening mammogram in 12 months. Electronically signed by: GRISELDA LOVE MD Narrative 07/05/2024 9:08 AM HEARING INSTRUMENT SPECIALIST EXAMINATION: BILATERAL SCREENING MAMMOGRAM COMPARISON: All prior mammograms dating back to 2016. TECHNIQUE: Full-field 2D and digital breast tomosynthesis (DBT) images were obtained. CAD was utilized. BREAST PARENCHYMAL COMPOSITION: There are scattered areas of fibroglandular density. FINDINGS: There is no suspicious mass, calcification, or distortion in either breast. Self Screening Mammogram IMG MAMMO PROCEDURES Fi nal Result * Dexa Axial Skeleton Bone Density 1 or 2 Site (05/12/2022 10:01 AM HEARING INSTRUMENT SPECIALIST) Anatomical Region Laterality Modality Body N/A Other 05/12/2022 10:0 4 AM HEARING INSTRUMENT SPECIALIST Impressions 05/12/2022 10:04 AM HEARING INSTRUMENT SPECIALIST Bone mineral density of the spine falls within normal range, bone mineral density of the left hip falls within osteopenia range. In comparison to previous examination there is increase bone mineral density of the spine and decrease bone mineral density of the left hip. Electronically signed by: Artem Shelby 05/12/2022 10:04 AM HEARING INSTRUMENT SPECIALIST Examination: Bone densitometry of the lumbar spine and the left hip Order Date: 05/12/2022 10:30 AM History: Osteoporosis screening. Postmenopausal Comparison: 04/30/2020 Findings: The bone densitometry of the L1-L4 region, the left femoral neck and the total left hip was calculated using dual-energy x-ray absorptiometry. Summary: Bone mineral density (BMD) of the lumbar spine (L1-4): T-score -0.1; 99% of normal Bone mineral density (BMD) of the total left hip: T-score -2.1; 73% of normal Bone mineral density (BMD) of the left femoral neck: T-score -2.3; 70% of normal Bone mineral density of the spine falls within normal range, bone mineral density of the left hip falls within osteopenia range. In comparison to previous examination there is 1.4% change in spine findings suggestive of increased bone mineral density and -0.7% change in left hip findings suggestive of decrease bone mineral density. Procedure Note Simi Ross MD - 05/12/2022 Examination: Bone densitometry of the lumbar spine and the left hip Order Date: 05/12/2022 10:30 AM History: Osteoporosis screening. Postmenopausal Comparison: 04/30/2020 Findings: The bone densitometry of the L1-L4 region, the left femoral neck and the total left hip was calculated using dual-energy x-ray absorptiometry. Summary: Bone mineral density (BMD) of the lumbar spine (L1-4): T-score -0.1; 99% of normal Bone mineral density (BMD) of the total left hip: T-score -2.1; 73% of normal Bone mineral density (BMD) of the left femoral neck: T-score -2.3; 70% of normal Bone mineral density of the spine falls within normal range, bone mineral density of the left hip falls within osteopenia range. In comparison to previous examination there is 1.4% change in spine findings suggestive of increased bone mineral density and -0.7% change in left hip findings suggestive of decrease bone mineral density. IMPRESSION: Bone mineral density of the spine falls within normal range, bone mineral density of the left hip falls within osteopenia range. In comparison to previous examination there is increase bone mineral density of the spine and decrease bone mineral density of the left hip. Electronically signed by: Simi Ross M.D. Keegan Hill DO IMG DXA PROCEDURES Final R esult * Hepatitis C antibody (12/06/2019 10:39 AM CDT) Hep C Ab NON-REACTI VE NON-REACT JAIRO [facility] SIGNAL TO CUT-OFF 0.02 <1.00 [facility] Comment: HCV antibody was non-reactive. There is no laboratory evidence of HCV infection. In most cases, no further action is required. However, if recent HCV exposure is suspected, a test for HCV RNA (test code 28747) is suggested. For additional information please refer to http://education.Knowrom/faq/YLM76c3 (This link is being provided for informational/ educational purposes only.) Blood specimen (specimen) 12/06/2019 10:39 AM CDT 12/06/2019 10:40 AM CDT Narrative [facility] - 12/11/2019 7:24 PM CDT FASTING:YES FASTING: YES Teri [facility] LAB MICROBIOLOGY - GENERA L ORDERABLES Final Result [facility] [address] [id number] from Last 3 Months or Most Recently Relevant to Health Maintenance Insurance [facility] CHOICE PLUS MEDICARE COMMERCIAL [facility] MEDICARE MEDICARE Care Teams Food And Drug Research Scientist Relationship Specialty [place] [id number] [place] [address] PCP - General Family Medicine 10/19/22 Keegan Hill DO Family Medicine 04/28/22 [place] [address] [place] [address] Physician Microstrategy Architect Developer Orthopedic Surgery 02/01/20 Joon Scherer MD [address] [place] [address] Consulting Physician Rheumatology 02/21/23
--- OUTSIDE RECORDS SUMMARY | 2024-11-21 13:25 | XMS_ITS | Clinical Summary ---
Author Organization [facility] Address [address] [place] [address] Phone Care Team Providers Care Curriculum Development Coordinator Name Role Phone Keegan Hill DO Unavailable [phone] Jazmyn Cardoso Unavailable [phone] Kamila Katz DO Primary Care Provider + Joon Scherer MD Unavailable [phone] Allergies No known active allergies Medications escitalopram [...] 05/13/2021 Assessment & Plan (05/13/2021 10:44 AM APPAREL CUTTER): Received Pfizer booster Recommend she get Shingrix Recommend she get [id number] and then 8+ weeks later get [id number] Closed nondisplaced fracture of styloid process of [...] above. Assessment & Plan (05/22/2024 8:17 AM APPAREL CUTTER): Will continue as above. Assessment & Plan (01/17/2024 3:40 PM CDT): Will continue as above. Assessment & Plan (09/26/2023 12:44 PM CDT): Will continue as above. Assessment & Plan (05/20/2023 2:40 PM APPAREL CUTTER): Will continue as above. Assessment & Plan (02/21/2023 12:29 PM CDT): Will continue as above. Assessment & Plan (10/18/2022 9:57 AM CDT): Will continue as above. Assessment & Plan (07/21/2022 12:51 PM APPAREL CUTTER): Will continue as above. Assessment & Plan (05/26/2022 12:58 PM APPAREL CUTTER): Will continue as above. Assessment & Plan (02/24/2022 3:15 PM CDT): Will continue as above. Assessment & Plan (11/16/2021 1:01 PM CDT): Will continue as above. Assessment & Plan (08/12/2021 8:58 AM APPAREL CUTTER): Will continue as above. Assessment & Plan (05/13/2021 8:58 AM APPAREL CUTTER): Will continue as above. Assessment & Plan (03/11/2021 11:32 AM CDT): Will continue as above. Assessment & Plan (12/10/2020 12:14 PM CDT): Will continue Humira as above. Consider follow up with derm for possible topical treatments in the meantime - she will see if her PCP can recommend a photo producer closer to her home. Assessment & Plan (09/05/2020 9:53 AM CDT): Flaring on scalp, minimal in L ear. Humira as above. Consider follow up with derm for possible topical treatments in the meantime. Assessment & Plan (07/04/2020 11:02 AM APPAREL CUTTER): Flaring on scalp, minimal in L ear. Will add Humira as above. Consider follow up with derm for possible topical treatments in the meantime. Encounter for medication monitoring 01/30/2020 Assessment & Plan (09/18/2024 2:24 PM CDT): Hepatitis negative 11/2019 Tspot negative 07/2022 Continue routine lab monitoring Assessment & Plan (05/22/2024 8:17 AM APPAREL CUTTER): Hepatitis negative 11/2019 Tspot negative 07/2022 Continue routine lab monitoring Assessment & Plan (01/17/2024 3:40 PM CDT): Hepatitis negative 11/2019 Tspot negative 07/2022 Continue routine lab monitoring Assessment & Plan (09/26/2023 12:44 PM CDT): Hepatitis negative 11/2019 Tspot negative 07/2022 Continue routine lab monitoring Assessment & Plan (05/20/2023 2:40 PM APPAREL CUTTER): Hepatitis negative 11/2019 Tspot negative 07/2022 Continue routine lab monitoring Assessment & Plan (02/21/2023 12:29 PM CDT): Hepatitis negative 11/2019 Tspot negative 07/2022 Continue routine lab monitoring Assessment & Plan (10/18/2022 10:00 AM CDT): Hepatitis negative 11/2019 Tspot negative 07/2022 Continue routine lab monitoring Assessment & Plan (07/21/2022 12:51 PM APPAREL CUTTER): Hepatitis negative 11/2019 Continue routine lab monitoring Assessment & Plan (05/26/2022 12:58 PM APPAREL CUTTER): Hepatitis negative 11/2019 Continue routine lab monitoring Assessment & Plan (02/24/2022 3:15 PM CDT): Hepatitis negative 11/2019 Continue routine lab monitoring Assessment & Plan (11/16/2021 1:01 PM CDT): Hepatitis negative 11/2019 Continue routine lab monitoring Assessment & Plan (08/12/2021 8:58 AM APPAREL CUTTER): Hepatitis negative 11/2019 Continue routine lab monitoring Assessment & Plan (05/13/2021 8:58 AM APPAREL CUTTER): Hepatitis negative 11/2019 Continue routine lab monitoring Assessment & Plan (03/11/2021 8:58 AM CDT): Hepatitis negative 11/2019 Continue routine lab monitoring Assessment & Plan (12/09/2020 4:03 PM CDT): Hepatitis negative 11/2019 Continue routine lab monitoring Assessment & Plan (09/04/2020 10:19 AM CDT): Hepatitis negative 11/2019 Continue routine lab monitoring Assessment & Plan (07/02/2020 3:54 PM APPAREL CUTTER): Hepatitis negative 11/2019 Continue routine lab monitoring [...] needed. Assessment & Plan (05/22/2024 10:26 AM APPAREL CUTTER): Cdai in remission. Will continue Simponi aria [...] glucose, cataracts, glaucoma, AVN, and osteoporosis with retirement use. She was interested in trying the [...] needed. Assessment & Plan (05/23/2023 9:15 AM APPAREL CUTTER): Low cdai. She does have persistent synovitis [...] needed. Assessment & Plan (07/22/2022 11:46 AM APPAREL CUTTER): High cdai. Denies any benefit with Humira. [...] needed. Assessment & Plan (05/27/2022 11:20 AM APPAREL CUTTER): High cdai. Denies any benefit with Humira. [...] glucose, cataracts, glaucoma, AVN, and osteoporosis with retirement use. Plan for follow up in 8 [...] persists/recurs. Assessment & Plan (08/12/2021 10:35 AM APPAREL CUTTER): Increased synovitis by exam today though her [...] needed. Assessment & Plan (05/13/2021 10:44 AM APPAREL CUTTER): Low cdai. Overall feels improved and stable [...] needed. Assessment & Plan (07/04/2020 11:01 AM APPAREL CUTTER): Moderate cdai of 19 with significant synovitis [...] 04/17/2019 Assessment & Plan (04/17/2019 2:02 PM APPAREL CUTTER): Patient's history and exam is consistent with [...] Depression Assessment & Plan (05/27/2022 11:24 AM APPAREL CUTTER): Feels that this is worse due to [...] regularly. Assessment & Plan (05/22/2024 8:17 AM APPAREL CUTTER): Pt reports prior dx of Sjogren's and [...] regularly. Assessment & Plan (05/20/2023 2:40 PM APPAREL CUTTER): Pt reports prior dx of Sjogren's and [...] regularly. Assessment & Plan (07/21/2022 12:50 PM APPAREL CUTTER): Pt reports prior dx of Sjogren's and recalls having been treated with hydroxychloroquine in the past. Labs show +MIRA, Ro60, and SSB c/w Sjogren's. Recommend conservative treatment including frequent sips of water, Biotene mouthwash, artificial tears, and use of a humidifier at home. Pt should see the dentist and eye doctor regularly. Assessment & Plan (05/26/2022 12:58 PM APPAREL CUTTER): Pt reports prior dx of Sjogren's and [...] with hydroxychloroquine in the past. Labs show +IMRA, Ro60, and SSB c/w Sjogren's. Recommend conservative treatment including frequent sips of water, Biotene mouthwash, artificial tears, and use of a humidifier at home. Pt should see the dentist and eye doctor regularly. Assessment & Plan (08/12/2021 8:58 AM APPAREL CUTTER): Pt reports prior dx of Sjogren's and recalls having been treated with hydroxychloroquine in the past. Labs show +MIRA, Ro60, and SSB c/w Sjogren's. Recommend conservative treatment including frequent sips of water, Biotene mouthwash, artificial tears, and use of a humidifier at home. Pt should see the dentist and eye doctor regularly. Assessment & Plan (05/13/2021 8:58 AM APPAREL CUTTER): Pt reports prior dx of Sjogren's and [...] regularly. Assessment & Plan (07/04/2020 11:02 AM APPAREL CUTTER): Pt reports prior dx of Sjogren's and [...] up with the eye doctor as well. Encounters Date Type Department Care Team Description 10/25/2024 Telephone [facility] Ophthalmology [facility] [place] [address] Ernie Martino MD 09/20/2024 Results Follow-Up [facility] [address] [place] [phone] Teri Norwood PA Comprehensive metabolic panel, CBC with auto differential 09/19/2024 8:45 AM CDT Office Visit [facility] [address] [place] [phone] Teri Norwood PA Psoriatic arthritis (HCC) (Primary Dx); Psoriasis; Sjogren's syndrome, with unspecified organ involvement; Encounter for medication monitoring from Last 3 Months Immunizations Immunization Administration Dates Next Due Influenza, Quadrivalent, Split, Intramuscular Influenza, Trivalent, IM (MDV) 03/13/2015,2011 Influenza, Trivalent, Preservative Free, Intramu scular 03/13/2013 Influenza, Unspecified 03/13/2017 Tdap 10/10/2012 Surgical History Surgery Date Site/Laterality Comments OTHER SURGICAL HISTORY Sjogerens Syndrome: Naprosyn-joint pain--stable TOTAL ABDOMINAL HYSTERECTOMY Hysterectomy, total SECTION X's 4 BUNIONECTOMY Bilateral SHOULDER SURGERY 02/01/2020 Left rotator cuff Medical History Medical History Date Comments Depression Depression Hx Other Medical 1976 C section Hx Other Medical 1980 C section Hx Other Medical 1984 C section Hx Other Medical 1988 C section Hx Other Medical 1999 Hsyterectomy Hx Other Medical 1994 Sjogerens Syndr ome Arthritis Arthritis; Comme nts: JKD 04/22/2014 - Irritable bowel syndrome Rotator cuff tear, left Family History Medical History Relation Name Comments Diabetes Father Diabetes mellit ; Heart attack Father Myocardial infa rction; Lung cancer Father Cancer, lung; Other Father Cancer - lung ( smoker); Cause of : Cancer - lung (smoker) Hypertension Mother Hypertension; Heart disease Other Family history of Heart disease; Benign Breast Condition Neg Hx Ovarian cancer Neg Hx Thyroid cancer Neg Hx Relation Name Status Comments Father Alive Mother Other Social History Tobacco Use Types Packs/Day Years Used Date Smoking Tobacco: Never Smokeless Tobacco: Never Alcohol Use Standard Drinks/Week Comments Yes 0 (1 standard drink = 0.6 oz pur e alcohol) daily 2 glasses of wine Comments No Sex and Gender Information Value Date Recorded Sex Assigned at Not on file Legal Sex Female 10:40 AM APPAREL CUTTER Gender Identity Not on file Sexual Orientation Not on file 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 Not on file Not on file Obstetrics History Para Term AB IAB SAB Ectopic Multiple Livin g Live Births 4 4 4 Date Outcome GA Total Labor Labor/2nd/3rd Weight Sex Type Anes PTL Rika A1 A5 Name Clin Term Term Term Term Last Filed Vital Signs Vital Sign Reading Time Taken Comments Blood Pressure 120/80 09/19/2024 9:01 AM CDT Pulse 78 09/19/2024 9:01 AM CDT Temperature 36.6 C (97.9 F) 08/12/2021 10:11 AM APPAREL CUTTER Respiratory Rate 13 02/01/2020 11:4 5 AM CDT Oxygen Saturation 95% 09/19/2024 9:01 AM CDT Inhaled Oxygen Concentration - - Weight 79.7 kg (175 lb 12.8 oz) 09/19/2024 9:01 AM CDT Height 175.3 cm (5' 9) 09/19/2024 9:01 AM CDT Body Mass Index 25.96 09/19/2024 9:01 AM CDT Plan of Treatment Health Maintenance Due Date Last Done Comments Colon Cancer Screening-Colonoscopy 1955 Hepatitis B Screening 1974 Pneumococcal vaccine 65+ (1 of 2 - PCV) 1975 Zoster Vaccine (1 of 2) 1975 Depression Screening 09/02/2018 09/02/2017 Fall Risk Assessment 01/31/2021 02/01/2020, 09/03/19 18 Well Visit 65+ 2021 09/02/2017 DTaP/Tdap/Td Vaccine (2 - Td or Tdap) 10/10/2022 10/10/2012 Osteoporosis Screening-Bone Density Scan 05/12/2024 05/12/2022, 04/30/2020, 11/05/2015 Influenza Vaccine (Season Ended) 2025 03/13/2017, 03/13/2016, 03/13/2015, Additional history exists Breast Cancer Screening-Mammogram 07/05/2025 07/05/2024, 05/12/2022, 04/30/2020, Additional history exists Hepatitis C Screening Completed 12/06/2019 Procedures Procedure Name Priority Date/Time Associated Diagnosis Comments CBC WITH AUTO DIFFERENTIAL Routine 09/19/2024 9:20 AM CDT Encounter for medication monitoring COMPREHENSIVE METABOLIC PANEL Routine 09/19/2024 9:20 AM CDT Encounter for medication monitoring SCREENING MAMMOGRAM BILATERAL W PETE Schedule Routine, Read Routine (OP Routine) 07/05/2024 8:28 AM APPAREL CUTTER Screening mammogram, encounter for DEXA AXIAL SKELETON BONE DENSITY 1 OR MORE SITES Schedule Routine, Read Routine (OP Routine) 05/12/2022 10:01 AM APPAREL CUTTER Asymptomatic menopausal state Other specified disorders of [...] CDT Teri [facility] BLOOD ORDERABLES Ifrah hughes Result [facility] [address] [place] [address] * Comprehensive metabolic panel (09/19/2024 9:20 AM CDT) Pathologist [facility] Glucose 91 65 - 99 mg/dL [facility] [...] BLOOD ORDERABLES Ifrah l Result [facility] [address] [place] [address] * Screening Mammogram Bilateral W Pete (07/05/2024 8:28 AM APPAREL CUTTER) Anatomical Region Laterality Modality Breast Bilateral Mammography 07/05/2024 9:08 AM APPAREL CUTTER Impressions 07/05/2024 9:08 AM APPAREL CUTTER No evidence of malignancy in either breast. FINAL ASSESSMENT: BI-RADS Category 1: Negative. RECOMMENDATION: Recommend return for annual screening mammogram in 12 months. Electronically signed by: GRISELDA LOVE MD Narrative 07/05/2024 9:08 AM APPAREL CUTTER EXAMINATION: BILATERAL SCREENING MAMMOGRAM COMPARISON: All prior mammograms dating back to 2016. TECHNIQUE: Full-field 2D and digital breast tomosynthesis (DBT) images were obtained. CAD was utilized. BREAST PARENCHYMAL COMPOSITION: There are scattered areas of fibroglandular density. FINDINGS: There is no suspicious mass, calcification, or distortion in either breast. us Self Screening Mammogram IMG MAMMO PROCEDURES Fi nal Result * Dexa Axial Skeleton Bone Density 1 or 2 Site (05/12/2022 10:01 AM APPAREL CUTTER) Anatomical Region Laterality Modality Body N/A Other 05/12/2022 10:0 4 AM APPAREL CUTTER Impressions 05/12/2022 10:04 AM APPAREL CUTTER Bone mineral density of the spine falls within normal range, bone mineral density of the left hip falls within osteopenia range. In comparison to previous examination there is increase bone mineral density of the spine and decrease bone mineral density of the left hip. Electronically signed by: Artem Shelby 05/12/2022 10:04 AM APPAREL CUTTER Examination: Bone densitometry of the lumbar spine [...] a test for HCV RNA (test code 28284) is suggested. For additional information please refer to http://education.Vudu/faq/TPA86m8 (This link is being provided for informational/ educational purposes only.) Blood specimen (specimen) 12/06/2019 10:39 AM CDT 12/06/2019 10:40 AM CDT Narrative [facility] - 12/11/2019 7:24 PM CDT FASTING:YES FASTING: YES Teri [facility] MICROBIOLOGY - GENERA L ORDERABLES Final Result [facility] [address] [facility] [place] [id number] from Last 3 Months or Most Recently Relevant to Health Maintenance Insurance * Guarantor: Leah Bundy Account Type Relation to Patient Date of Phone Billing Address Personal/Family Self 1955 [facility] [address] [place] [address] [facility] [employer] [place] [address] [place] [address] MEDICARE COMMERCIAL [facility] [address] [place] [address] MEDICARE MEDICARE Care Teams Curriculum Development Coordinator Relationship Specialty [place] [address] [place] [address] PCP - General Family Medicine 10/19/22 Keegan Hill DO Family Medicine 04/28/22 [place] [address] [place] [address] Physician Cavity Pump Operator Orthopedic Surgery 02/01/20 Joon Scherer MD [address] [place] [address] Consulting Physician Rheumatology 02/21/23
--- OUTSIDE RECORDS SUMMARY | 2024-11-21 13:25 | XMS_ITS | Encounter Summary ---
Author Organization [facility] Address [address] [place] [address] Phone Care Team Providers Care Legal Technician Name Role Phone Keegan Hill DO Unavailable [phone] Jazmyn Cardoso Unavailable [phone] Kamila Katz DO Primary Care Provider + Joon Scherer MD Unavailable Encounter Details Date Type Department Care Team (Latest Contact Info) Description 09/20/2024 Results Follow-Up [facility] [address] [place] [phone] Teri Norwood PA [address] [place] [address] Comprehensive metabolic panel, CBC with auto differential Social History Tobacco Use Types Packs/Day Years Used Date Smoking Tobacco: Never Smokeless Tobacco: Never Alcohol Use Standard Drinks/Week Comments Yes 0 (1 standard drink = 0.6 oz pur e alcohol) daily 2 glasses of wine Comments No Sex and Gender Information Value Date Recorded Sex Assigned at Not on file Legal Sex Female 10:40 AM LIFE COACH Gender Identity Not on file Sexual Orientation Not on file 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 Not on file Not on file documented as of this encounter Plan of Treatment Not on file documented as of this encounter Visit Diagnoses Not on filedocumented in this encounter Care Teams Legal Technician Relationship Specialty Start [place] [address] [place] [address] PCP - General Family Medicine 10/19/22 Keegan Hill DO Family Medicine 04/28/22 [place] [address] [address] [place] [address] Physician Door Clamper Orthopedic Surgery 02/01/20 Joon Scherer MD [address] [place] [address] Consulting Physician Rheumatology 02/21/23 documented as of this encounter
[2024-11-21 14:03] LABS: Hemoglobin A1C 5.2 % (<5.7)
[2024-11-21 16:30] LABS: Free T4 Free Thyroxine 1.29 ng/dL (0.78-2.19); Vitamin D 25 Hydroxy 59.5 ng/mL
== END 2024-11-21 11:17 | disposition home or self-care (01) ==
LOC: ANHGOSHLAB 11:17
PROVIDERS: PCP Family Medicine; Visit Provider Family Medicine
DX: L40.50 Arthropathic psoriasis, unspecified (principal); R53.83 Other fatigue; E78.49 Other hyperlipidemia; E55.9 Vitamin D deficiency, unspecified; R73.9 Hyperglycemia, unspecified; E78.5 Hyperlipidemia, unspecified; M79.89 Other specified soft tissue disorders
CPT/HCPCS: 36415; 80053; 80061; 82306; 83036; 84439; 84443; 85025

== ENCOUNTER 2025-01-01 12:32 | Outpatient (CLI) | payer MEDICARE, SELFPAY ==
--- OUTSIDE RECORDS SUMMARY | 2025-01-01 12:39 | XMS_ITS | Clinical Summary ---
Author Organization [facility] Address [address] [place] [address] Phone Care Team Providers Care Race Relations Professor Name Role Phone Keegan Hill DO Unavailable [phone] Jazmyn Cardoso Unavailable [phone] Kamila Katz DO Primary Care Provider + Joon Scherer MD Unavailable [phone] Allergies No known active allergies Medications escitalopram [...] 05/13/2021 Assessment & Plan (05/13/2021 10:44 AM SPARE PARTS CLERK): Received Pfizer booster Recommend she get Shingrix Recommend she get [id number] and then 8+ weeks later get [id number] Closed nondisplaced fracture of styloid process of [...] above. Assessment & Plan (05/22/2024 8:17 AM SPARE PARTS CLERK): Will continue as above. Assessment & Plan (01/17/2024 3:40 PM CDT): Will continue as above. Assessment & Plan (09/26/2023 12:44 PM CDT): Will continue as above. Assessment & Plan (05/20/2023 2:40 PM SPARE PARTS CLERK): Will continue as above. Assessment & Plan (02/21/2023 12:29 PM CDT): Will continue as above. Assessment & Plan (10/18/2022 9:57 AM CDT): Will continue as above. Assessment & Plan (07/21/2022 12:51 PM SPARE PARTS CLERK): Will continue as above. Assessment & Plan (05/26/2022 12:58 PM SPARE PARTS CLERK): Will continue as above. Assessment & Plan (02/24/2022 3:15 PM CDT): Will continue as above. Assessment & Plan (11/16/2021 1:01 PM CDT): Will continue as above. Assessment & Plan (08/12/2021 8:58 AM SPARE PARTS CLERK): Will continue as above. Assessment & Plan (05/13/2021 8:58 AM SPARE PARTS CLERK): Will continue as above. Assessment & Plan (03/11/2021 11:32 AM CDT): Will continue as above. Assessment & Plan (12/10/2020 12:14 PM CDT): Will continue Humira as above. Consider follow up with derm for possible topical treatments in the meantime - she will see if her PCP can recommend a operations staff specialist security closer to her home. Assessment & Plan (09/05/2020 9:53 AM CDT): Flaring on scalp, minimal in L ear. Humira as above. Consider follow up with derm for possible topical treatments in the meantime. Assessment & Plan (07/04/2020 11:02 AM SPARE PARTS CLERK): Flaring on scalp, minimal in L ear. Will add Humira as above. Consider follow up with derm for possible topical treatments in the meantime. Encounter for medication monitoring 01/30/2020 Assessment & Plan (09/18/2024 2:24 PM CDT): Hepatitis negative 11/2019 Tspot negative 07/2022 Continue routine lab monitoring Assessment & Plan (05/22/2024 8:17 AM SPARE PARTS CLERK): Hepatitis negative 11/2019 Tspot negative 07/2022 Continue routine lab monitoring Assessment & Plan (01/17/2024 3:40 PM CDT): Hepatitis negative 11/2019 Tspot negative 07/2022 Continue routine lab monitoring Assessment & Plan (09/26/2023 12:44 PM CDT): Hepatitis negative 11/2019 Tspot negative 07/2022 Continue routine lab monitoring Assessment & Plan (05/20/2023 2:40 PM SPARE PARTS CLERK): Hepatitis negative 11/2019 Tspot negative 07/2022 Continue routine lab monitoring Assessment & Plan (02/21/2023 12:29 PM CDT): Hepatitis negative 11/2019 Tspot negative 07/2022 Continue routine lab monitoring Assessment & Plan (10/18/2022 10:00 AM CDT): Hepatitis negative 11/2019 Tspot negative 07/2022 Continue routine lab monitoring Assessment & Plan (07/21/2022 12:51 PM SPARE PARTS CLERK): Hepatitis negative 11/2019 Continue routine lab monitoring Assessment & Plan (05/26/2022 12:58 PM SPARE PARTS CLERK): Hepatitis negative 11/2019 Continue routine lab monitoring Assessment & Plan (02/24/2022 3:15 PM CDT): Hepatitis negative 11/2019 Continue routine lab monitoring Assessment & Plan (11/16/2021 1:01 PM CDT): Hepatitis negative 11/2019 Continue routine lab monitoring Assessment & Plan (08/12/2021 8:58 AM SPARE PARTS CLERK): Hepatitis negative 11/2019 Continue routine lab monitoring Assessment & Plan (05/13/2021 8:58 AM SPARE PARTS CLERK): Hepatitis negative 11/2019 Continue routine lab monitoring Assessment & Plan (03/11/2021 8:58 AM CDT): Hepatitis negative 11/2019 Continue routine lab monitoring Assessment & Plan (12/09/2020 4:03 PM CDT): Hepatitis negative 11/2019 Continue routine lab monitoring Assessment & Plan (09/04/2020 10:19 AM CDT): Hepatitis negative 11/2019 Continue routine lab monitoring Assessment & Plan (07/02/2020 3:54 PM SPARE PARTS CLERK): Hepatitis negative 11/2019 Continue routine lab monitoring [...] needed. Assessment & Plan (05/22/2024 10:26 AM SPARE PARTS CLERK): Cdai in remission. Will continue Simponi aria [...] glucose, cataracts, glaucoma, AVN, and osteoporosis with mcc use. She was interested in trying the [...] needed. Assessment & Plan (05/23/2023 9:15 AM SPARE PARTS CLERK): Low cdai. She does have persistent synovitis [...] needed. Assessment & Plan (07/22/2022 11:46 AM SPARE PARTS CLERK): High cdai. Denies any benefit with Humira. [...] needed. Assessment & Plan (05/27/2022 11:20 AM SPARE PARTS CLERK): High cdai. Denies any benefit with Humira. [...] glucose, cataracts, glaucoma, AVN, and osteoporosis with mcc use. Plan for follow up in 8 [...] persists/recurs. Assessment & Plan (08/12/2021 10:35 AM SPARE PARTS CLERK): Increased synovitis by exam today though her [...] needed. Assessment & Plan (05/13/2021 10:44 AM SPARE PARTS CLERK): Low cdai. Overall feels improved and stable [...] needed. Assessment & Plan (07/04/2020 11:01 AM SPARE PARTS CLERK): Moderate cdai of 19 with significant synovitis [...] 04/17/2019 Assessment & Plan (04/17/2019 2:02 PM SPARE PARTS CLERK): Patient's history and exam is consistent with [...] Depression Assessment & Plan (05/27/2022 11:24 AM SPARE PARTS CLERK): Feels that this is worse due to [...] regularly. Assessment & Plan (05/22/2024 8:17 AM SPARE PARTS CLERK): Pt reports prior dx of Sjogren's and [...] regularly. Assessment & Plan (05/20/2023 2:40 PM SPARE PARTS CLERK): Pt reports prior dx of Sjogren's and [...] regularly. Assessment & Plan (07/21/2022 12:50 PM SPARE PARTS CLERK): Pt reports prior dx of Sjogren's and recalls having been treated with hydroxychloroquine in the past. Labs show +MIRA, Ro60, and SSB c/w Sjogren's. Recommend conservative treatment including frequent sips of water, Biotene mouthwash, artificial tears, and use of a humidifier at home. Pt should see the dentist and eye doctor regularly. Assessment & Plan (05/26/2022 12:58 PM SPARE PARTS CLERK): Pt reports prior dx of Sjogren's and [...] regularly. Assessment & Plan (08/12/2021 8:58 AM SPARE PARTS CLERK): Pt reports prior dx of Sjogren's and recalls having been treated with hydroxychloroquine in the past. Labs show +MIRA, Ro60, and SSB c/w Sjogren's. Recommend conservative treatment including frequent sips of water, Biotene mouthwash, artificial tears, and use of a humidifier at home. Pt should see the dentist and eye doctor regularly. Assessment & Plan (05/13/2021 8:58 AM SPARE PARTS CLERK): Pt reports prior dx of Sjogren's and [...] regularly. Assessment & Plan (07/04/2020 11:02 AM SPARE PARTS CLERK): Pt reports prior dx of Sjogren's and [...] Type Department Care Team Description 10/25/2024 Telephone [facility] [place] [address] Ernie Martino MD from Last 3 Months Immunizations Immunization Administration [...] Relation Name Comments Diabetes Father Diabetes mellit us; Heart attack Father Myocardial infa rction; Lung [...] on file Legal Sex Female 10:40 AM SPARE PARTS CLERK Gender Identity Not on file Sexual Orientation [...] 36.6 C (97.9 F) 08/12/2021 10:11 AM SPARE PARTS CLERK Respiratory Rate 13 02/01/2020 11:4 5 AM [...] Scan 05/12/2024 05/12/2022, 04/30/2020, 11/05/2015 Influenza Vaccine (#1) 2025 7, 03/13/2016, 03/13/2015, Additional history exists Breast Cancer Screening-Mammogram 07/05/2025 07/05/2024, 05/12/2022, 04/30/2020, Additional history exists Hepatitis C Screening Completed 12/06/2019 Procedures Procedure Name Priority Date/Time Associated Diagnosis Comments SCREENING MAMMOGRAM BILATERAL W PETE Schedule Routine, Read Routine (OP Routine) 07/05/2024 8:28 AM SPARE PARTS CLERK Screening mammogram, encounter for DEXA AXIAL SKELETON BONE DENSITY 1 OR MORE SITES Schedule Routine, Read Routine (OP Routine) 05/12/2022 10:01 AM SPARE PARTS CLERK Asymptomatic menopausal state Other specified disorders of bone density and structure, unspecified site HEPATITIS C ANTIBODY Routine 12/06/2019 10:39 AM CDT Polyarthralgia Encounter for screening for other viral diseases from Last 3 Months or Most Recently Relevant to Health Maintenance Results * Screening Mammogram Bilateral W Pete (07/05/2024 8:28 AM SPARE PARTS CLERK) Anatomical Region Laterality Modality Breast Bilateral Mammography 07/05/2024 9:08 AM SPARE PARTS CLERK Impressions 07/05/2024 9:08 AM SPARE PARTS CLERK No evidence of malignancy in either breast. FINAL ASSESSMENT: BI-RADS Category 1: Negative. RECOMMENDATION: Recommend return for annual screening mammogram in 12 months. Electronically signed by: GRISELDA LOVE MD Narrative 07/05/2024 9:08 AM SPARE PARTS CLERK EXAMINATION: BILATERAL SCREENING MAMMOGRAM COMPARISON: All prior [...] 1 or 2 Site (05/12/2022 10:01 AM SPARE PARTS CLERK) Anatomical Region Laterality Modality Body N/A Other 05/12/2022 10:0 4 AM SPARE PARTS CLERK Impressions 05/12/2022 10:04 AM SPARE PARTS CLERK Bone mineral density of the spine falls within normal range, bone mineral density of the left hip falls within osteopenia range. In comparison to previous examination there is increase bone mineral density of the spine and decrease bone mineral density of the left hip. Electronically signed by: Simi Ross M.D. Narrative 05/12/2022 10:04 AM SPARE PARTS CLERK Examination: Bone densitometry of the lumbar spine [...] by: Simi Ross M.D. Keegan Hill DO [facility] DXA PROCEDURES Final R esult * Hepatitis [...] a test for HCV RNA (test code 46795) is suggested. For additional information please refer to http://education.[employer].ComCam/faq/OEY64g9 (This link is being provided for informational/ educational purposes only.) Blood specimen (specimen) 12/06/2019 10:39 AM CDT 12/06/2019 10:40 AM CDT Narrative [facility] - 12/11/2019 7:24 PM CDT FASTING:YES FASTING: YES Teri [facility] MICROBIOLOGY - GENERA L ORDERABLES Final Result [facility] [address] [place] [address] from Last 3 Months or Most Recently Relevant to Health [place] [address] [facility] [id number] MEDICARE COMMERCIAL GENERIC MEDICARE MEDICARE Care Teams Race Relations Professor Relationship Specialty Start Date End Date Priscilla Katzzabeth DO Jeri [address] [place] [address] PCP - General Family Medicine 10/19/22 Keegan Hill DO Family Medicine 04/28/22 [place] [address] [address] [place] [address] Physician Sr. Media Manager Orthopedic Surgery 02/01/20 Joon Scherer MD [address] [place] [address] Consulting Physician Rheumatology 02/21/23
--- OUTSIDE RECORDS SUMMARY | 2025-01-01 12:39 | XMS_ITS | Encounter Summary ---
Author Organization [facility] Address [address] [place] [address] Phone Care Team Providers Care Cvir Tech Name Role Phone Amish Aniket DO Primary Care Provider [phone] Keegan Hill DO Primary Care Provider [phone] Keegan Hill DO Unavailable [phone] Irene Mckeon RN Unavailable Unavailab marichuy Caballero III, MD, Crow Ritchie Unavailable [phone] Jazmyn Cardoso Unavailable [phone] Kamila Katz DO Primary Care Provider + Joon Scherer MD Unavailable [phone] Encounter Details Date Type Department Care Team (Late st Contact Info) Description 04/01/2022 Orders Only [facility] [address] [place] [address] Scanning, Provider Social History Tobacco Use Types Packs/Day Years Used Date Smoking Tobacco: Never Smokeless Tobacco: Never Alcohol Use Standard Drinks/Week Comments Yes 0 (1 standard drink = 0.6 oz pur e alcohol) daily 2 glasses of wine Comments No Sex and Gender Information Value Date Recorded Sex Assigned at Not on file Legal Sex Female 10:40 AM CO FOUNDER & CEO Gender Identity Not on file Sexual Orientation [...] on filedocumented in this encounter Care Teams Cvir Tech Relationship Specialty Start Date End Date Aniket Wellington DO PCP - General 05/29/19 04/27/22 Keegan Hill DO PCP - General Family Medicine 04/28/22 10/18/22 [place] [address] [address] [facility] [address] [place] [address] PCP - General Family Medicine 10/19/22 Keegan Hill DO Family Medicine 04/28/22 Irene Mckeon, RN Registered Nurse 09/26/17 2 Crow Caballero III, MD [address] [place] [address] Consulting Physician Rheumatology 11/15/19 02/20/23 [place] [address] [address] [place] [address] Physician Arboriculture Teacher Orthopedic Surgery 02/01/20 Joon Scherer MD [address] [place] [address] Consulting Physician Rheumatology 02/21/23 documented as of this encounter
--- OUTSIDE RECORDS SUMMARY | 2025-01-01 12:39 | XMS_ITS ---
Author Name DENISE WATTS Address [address] [place] [address] Phone [facility] Address [address] [place] [address] Phone Care Team Providers Care Merchandise Handler Name Role Phone DO DENISE WATTS Unavailable ALLERGIES, ADVERSE REACTIONS AND ALERTS Allergy Name Allergy Date Allergy Status Allergy Severity Allergy Reaction UNKNOWN DRUG ALLERGIES MAY E XIST MEDICATIONS RxNorm Brand Name Prescription Ordered Value Order Unit Start Date Date Status Fill Status Indications [id number] Humira(C F) Pen 40 mg/0.4 mL pen injector kit SIG: Humira(CF) Pen 40 mg/0.4 mL subcutaneous pen injector kit, 28 days, Dispense #2 Each, 0 RefillsDirecti ons: Inject 0.4 mL (40 mg total) subcutaneously (under the skin) every 14 (fourteen) days 2 pen injecto r kit 2021 Current [id number] folic acid 1 mg tablet SIG: folic acid 1 mg oral tablet, 90 days, Dispense #90 Tablet, 0 RefillsDirecti ons: Take 1 oral tablet once a day 90 tablet 2021 Current [id number] methotre xate sodium 2.5 mg tablet SIG: methotrexate sodium 2.5 mg oral tablet, 28 days, Dispense #4 Tablet, 2 RefillsDirecti ons: Take 1 oral tablet per week 4 tablet 2021 Current [id number] escitalo pram oxalate 20 mg tablet SIG: escitalopram oxalate 20 mg oral tablet, 30 days, Dispense #30 Tablet, 2 RefillsDirecti ons: Take 1 oral tablet once a day 30 tablet 2021 Historic [id number] omeprazo le 20 mg capsule, delayed release( DR/EC) SIG: omeprazole 20 mg oral capsule,delaye d release(DR/EC) , 90 days, Dispense #90 Capsule, 0 RefillsDirecti ons: Take 1 oral capsule once a day 90 capsule ,delaye d release (DR/EC) 2021 Current [id number] PreserVi vivienne AREDS 2,148 mcg-113 mg-45 mg-17.4m g tablet SIG: PreserVision AREDS 2,148 mcg-113 mg-45 mg-17.4mg oral tablet, 30 days, Dispense #60 Tablet, 0 RefillsDirecti ons: Take 1 oral tablet twice a day 60 tablet 2021 Current [id number] Kenalog 0.147 mg/gram aerosol SIG: Kenalog 0.147 mg/gram topical aerosol, 63 days, Dispense #63 Gram, 0 RefillsDirecti ons: Take 1 topical gram once a day 63 aerosol 2021 Current Collagen -- capsule SIG: Collagen -- oral capsule, 30 days, Dispense #30 -, 0 RefillsDirecti ons: Take 1 oral tablet daily 30 capsule 2021 Current [id number] Vitamin D3 125 mcg (5,000 unit) tablet [...] once a day 30 tablet 2021 Current [id number] escitalo pram oxalate 20 mg tablet SIG: escitalopram oxalate 20 mg oral tablet, 90 days, Dispense #90 Tablet, 0 RefillsDirecti ons: Take 1 oral tablet once a day 90 tablet 2022 Historic [id number] escitalo pram oxalate 20 mg tablet SIG: escitalopram oxalate 20 mg oral tablet, 7 days, Dispense #7 Tablet, 0 RefillsDirecti ons: Take 1 oral tablet once a day 7 tablet 2022 023 Historic 237779 escitalo pram oxalate 20 mg tablet SIG: escitalopram oxalate 20 mg oral tablet, 90 days, Dispense #90 Tablet, 0 RefillsDirecti ons: Take 1 oral tablet once a day 90 tablet 2022 Historic [id number] ESCITALO PRAM 20MG TABLETS 20 mg tablet SIG: ESCITALOPRAM 20MG TABLETS, Dispense #90, 0 Refills, Directions: TAKE 1 TABLET BY MOUTH EVERY DAY 90 tablet 2022 Current [id number] ESCITALO PRAM 20MG TABLETS 20 mg tablet [...] Encounter Type Provider Diagnoses Start Date Location Disc harged to None SOCIAL HISTORY Social Status Observation Never Smoker Sex: Female CARE TEAM INFORMATION Merchandise Handler Provider ID Role Location Phone DENISE WATTS [phone] PHYSICIAN [address] [place] [address] INSURANCE PROVIDERS Payer Name Policy type / Covera ge type Covered constitution party ID Policy [employer] Private Health Insurance [id number] SELF
--- OUTSIDE RECORDS SUMMARY | 2025-01-01 12:39 | XMS_ITS | Clinical Summary ---
Author Organization [facility] Address [address] [place] [place] [address] Care Team Providers Care Mall Plant Caretaker Name Role Phone Kamila Katz Primary Care Provider [phone] Source Comments [facility],non-owned Affiliates and Associated Physician Practices is amultiple site organization consisting of ambulatory clinics and hospital sitesin [place], [place], [place] and [place]. This disclosure is being madepursuant to the Care Everywhere program and may not contain all information available regarding this patient. Last updated 18.[facility] [email or web address] Allergies No known active allergies Social History Tobacco Use Types Packs/Day Years Used Date Smoking Tobacco: Never Assessed Comments Unknown Sex and Gender Information Value Date Recorded Sex Assigned at Not on file Legal Sex Female 5:48 AM LDR NURSE Gender Identity Not on file Sexual Orientation [...] season) 2024 DEPRESSION SCREENING 06/13/2024 INFLUENZA VACCINE (#1) 2025 7, 03/13/2016, 03/13/2015, Additional history exists LIPID TESTING [...] MEDICARE MEDICARE SUPPLEMENT PAYOR GENERIC Care Teams Mall Plant Caretaker Relationship Specialty Start Date End Date Kamila Katz DO [address] [place] [id number] PCP - General Family Medicine 04/03/23
--- OUTSIDE RECORDS SUMMARY | 2025-01-01 12:39 | XMS_ITS | Referral Summary ---
Author Organization [facility] Address [address] [facility] [address] [place] [address] Phone Care Team Providers Care Sample Examiner Name Role Phone Keegan Hill DO Unavailable [phone] Jazmyn Cardoso Unavailable [phone] Kamila Katz DO Primary Care Provider + Joon Scherer MD Unavailable Encounters Date Type Department Care Team Description 10/25/2024 Telephone [facility] Ophthalmology [address] [place] [address] Ernie Martino MD from Last 3 Months Allergies No known [...] 05/13/2021 Assessment & Plan (05/13/2021 10:44 AM NURSE UNIT MANAGER): Received Pfizer booster Recommend she get Shingrix Recommend she get [id number] and then 8+ weeks later get [id number] Closed nondisplaced fracture of styloid process of radius with routine healing 01/27/2021 Assessment & Plan (01/27/2021 10:48 AM CDT): Patient's MRI did confirm the presence of a nondisplaced radial styloid fracture. Patient is to continue with a wrist control splint and appears to be healing. These generally take six weeks to fully heal Scapholunate instability of right wrist 01/06/20 21 Assessment & Plan (01/27/2021 10:50 AM CDT): [...] above. Assessment & Plan (05/22/2024 8:17 AM NURSE UNIT MANAGER): Will continue as above. Assessment & Plan (01/17/2024 3:40 PM CDT): Will continue as above. Assessment & Plan (09/26/2023 12:44 PM CDT): Will continue as above. Assessment & Plan (05/20/2023 2:40 PM NURSE UNIT MANAGER): Will continue as above. Assessment & Plan (02/21/2023 12:29 PM CDT): Will continue as above. Assessment & Plan (10/18/2022 9:57 AM CDT): Will continue as above. Assessment & Plan (07/21/2022 12:51 PM NURSE UNIT MANAGER): Will continue as above. Assessment & Plan (05/26/2022 12:58 PM NURSE UNIT MANAGER): Will continue as above. Assessment & Plan (02/24/2022 3:15 PM CDT): Will continue as above. Assessment & Plan (11/16/2021 1:01 PM CDT): Will continue as above. Assessment & Plan (08/12/2021 8:58 AM NURSE UNIT MANAGER): Will continue as above. Assessment & Plan (05/13/2021 8:58 AM NURSE UNIT MANAGER): Will continue as above. Assessment & Plan (03/11/2021 11:32 AM CDT): Will continue as above. Assessment & Plan (12/10/2020 12:14 PM CDT): Will continue Humira as above. Consider follow up with derm for possible topical treatments in the meantime - she will see if her PCP can recommend a medical and scientific illustrator closer to her home. Assessment & Plan (09/05/2020 9:53 AM CDT): Flaring on scalp, minimal in L ear. Humira as above. Consider follow up with derm for possible topical treatments in the meantime. Assessment & Plan (07/04/2020 11:02 AM NURSE UNIT MANAGER): Flaring on scalp, minimal in L ear. Will add Humira as above. Consider follow up with derm for possible topical treatments in the meantime. Encounter for medication monitoring 01/30/2020 Assessment & Plan (09/18/2024 2:24 PM CDT): Hepatitis negative 11/2019 Tspot negative 07/2022 Continue routine lab monitoring Assessment & Plan (05/22/2024 8:17 AM NURSE UNIT MANAGER): Hepatitis negative 11/2019 Tspot negative 07/2022 Continue routine lab monitoring Assessment & Plan (01/17/2024 3:40 PM CDT): Hepatitis negative 11/2019 Tspot negative 07/2022 Continue routine lab monitoring Assessment & Plan (09/26/2023 12:44 PM CDT): Hepatitis negative 11/2019 Tspot negative 07/2022 Continue routine lab monitoring Assessment & Plan (05/20/2023 2:40 PM NURSE UNIT MANAGER): Hepatitis negative 11/2019 Tspot negative 07/2022 Continue routine lab monitoring Assessment & Plan (02/21/2023 12:29 PM CDT): Hepatitis negative 11/2019 Tspot negative 07/2022 Continue routine lab monitoring Assessment & Plan (10/18/2022 10:00 AM CDT): Hepatitis negative 11/2019 Tspot negative 07/2022 Continue routine lab monitoring Assessment & Plan (07/21/2022 12:51 PM NURSE UNIT MANAGER): Hepatitis negative 11/2019 Continue routine lab monitoring Assessment & Plan (05/26/2022 12:58 PM NURSE UNIT MANAGER): Hepatitis negative 11/2019 Continue routine lab monitoring Assessment & Plan (02/24/2022 3:15 PM CDT): Hepatitis negative 11/2019 Continue routine lab monitoring Assessment & Plan (11/16/2021 1:01 PM CDT): Hepatitis negative 11/2019 Continue routine lab monitoring Assessment & Plan (08/12/2021 8:58 AM NURSE UNIT MANAGER): Hepatitis negative 11/2019 Continue routine lab monitoring Assessment & Plan (05/13/2021 8:58 AM NURSE UNIT MANAGER): Hepatitis negative 11/2019 Continue routine lab monitoring Assessment & Plan (03/11/2021 8:58 AM CDT): Hepatitis negative 11/2019 Continue routine lab monitoring Assessment & Plan (12/09/2020 4:03 PM CDT): Hepatitis negative 11/2019 Continue routine lab monitoring Assessment & Plan (09/04/2020 10:19 AM CDT): Hepatitis negative 11/2019 Continue routine lab monitoring Assessment & Plan (07/02/2020 3:54 PM NURSE UNIT MANAGER): Hepatitis negative 11/2019 Continue routine lab monitoring [...] needed. Assessment & Plan (05/22/2024 10:26 AM NURSE UNIT MANAGER): Cdai in remission. 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 She was interested in trying the [...] needed. Assessment & Plan (05/23/2023 9:15 AM NURSE UNIT MANAGER): Low cdai. She does have persistent synovitis [...] needed. Assessment & Plan (07/22/2022 11:46 AM NURSE UNIT MANAGER): High cdai. Denies any benefit with Humira. [...] needed. Assessment & Plan (05/27/2022 11:20 AM NURSE UNIT MANAGER): High cdai. Denies any benefit with Humira. 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 Plan for follow up in 8 [...] persists/recurs. Assessment & Plan (08/12/2021 10:35 AM NURSE UNIT MANAGER): Increased synovitis by exam today though her [...] needed. Assessment & Plan (05/13/2021 10:44 AM NURSE UNIT MANAGER): Low cdai. Overall feels improved and stable [...] needed. Assessment & Plan (07/04/2020 11:01 AM NURSE UNIT MANAGER): Moderate cdai of 19 with significant synovitis [...] 04/17/2019 Assessment & Plan (04/17/2019 2:02 PM NURSE UNIT MANAGER): Patient's history and exam is consistent with [...] Depression Assessment & Plan (05/27/2022 11:24 AM NURSE UNIT MANAGER): Feels that this is worse due to [...] regularly. Assessment & Plan (05/22/2024 8:17 AM NURSE UNIT MANAGER): Pt reports prior dx of Sjogren's and [...] regularly. Assessment & Plan (05/20/2023 2:40 PM NURSE UNIT MANAGER): Pt reports prior dx of Sjogren's and [...] regularly. Assessment & Plan (07/21/2022 12:50 PM NURSE UNIT MANAGER): Pt reports prior dx of Sjogren's and recalls having been treated with hydroxychloroquine in the past. Labs show +MIRA, Ro60, and SSB c/w Sjogren's. Recommend conservative treatment including frequent sips of water, Biotene mouthwash, artificial tears, and use of a humidifier at home. Pt should see the dentist and eye doctor regularly. Assessment & Plan (05/26/2022 12:58 PM NURSE UNIT MANAGER): Pt reports prior dx of Sjogren's and [...] regularly. Assessment & Plan (08/12/2021 8:58 AM NURSE UNIT MANAGER): Pt reports prior dx of Sjogren's and recalls having been treated with hydroxychloroquine in the past. Labs show +MIRA, Ro60, and SSB c/w Sjogren's. Recommend conservative treatment including frequent sips of water, Biotene mouthwash, artificial tears, and use of a humidifier at home. Pt should see the dentist and eye doctor regularly. Assessment & Plan (05/13/2021 8:58 AM NURSE UNIT MANAGER): Pt reports prior dx of Sjogren's and [...] regularly. 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 Not on file Not on file Last Filed Vital Signs Vital Sign Reading Time Taken Comments Blood Pressure 120/80 09/19/2024 9:01 AM CDT Pulse 78 09/19/2024 9:01 AM CDT Temperature 36.6 C (97.9 F) 08/12/2021 10:11 AM NURSE UNIT MANAGER Respiratory Rate 13 02/01/2020 11:4 5 AM [...] Read Routine (OP Routine) 07/05/2024 8:28 AM NURSE UNIT MANAGER Screening mammogram, encounter for DEXA AXIAL SKELETON BONE DENSITY 1 OR MORE SITES Schedule Routine, Read Routine (OP Routine) 05/12/2022 10:01 AM NURSE UNIT MANAGER Asymptomatic menopausal state Other specified disorders of bone density and structure, unspecified site HEPATITIS C ANTIBODY Routine 12/06/2019 10:39 AM CDT Polyarthralgia Encounter for screening for other viral diseases from Last 3 Months or Most Recently Relevant to Health Maintenance Results * Screening Mammogram Bilateral W Pete (07/05/2024 8:28 AM NURSE UNIT MANAGER) Anatomical Region Laterality Modality Breast Bilateral Mammography 07/05/2024 9:08 AM NURSE UNIT MANAGER Impressions 07/05/2024 9:08 AM NURSE UNIT MANAGER No evidence of malignancy in either breast. FINAL ASSESSMENT: BI-RADS Category 1: Negative. RECOMMENDATION: Recommend return for annual screening mammogram in 12 months. Electronically signed by: GRISELDA LOVE MD Narrative 07/05/2024 9:08 AM NURSE UNIT MANAGER EXAMINATION: BILATERAL SCREENING MAMMOGRAM COMPARISON: All prior mammograms dating back to 2015. TECHNIQUE: Full-field 2D and digital breast tomosynthesis (DBT) images were obtained. CAD was utilized. BREAST PARENCHYMAL COMPOSITION: There are scattered areas of fibroglandular density. FINDINGS: There is no suspicious mass, calcification, or distortion in either breast. us Self Screening Mammogram IMG MAMMO PROCEDURES Fi nal Result * Dexa Axial Skeleton Bone Density 1 or 2 Site (05/12/2022 10:01 AM NURSE UNIT MANAGER) Anatomical Region Laterality Modality Body N/A Other 05/12/2022 10:0 4 AM NURSE UNIT MANAGER Impressions 05/12/2022 10:04 AM NURSE UNIT MANAGER Bone mineral density of the spine falls within normal range, bone mineral density of the left hip falls within osteopenia range. In comparison to previous examination there is increase bone mineral density of the spine and decrease bone mineral density of the left hip. Electronically signed by: Simi Ross M.D. Narrative 05/12/2022 10:04 AM NURSE UNIT MANAGER Examination: Bone densitometry of the lumbar spine [...] by: Simi Ross M.D. Keegan Hill DO [facility] DXA PROCEDURES Final R esult * Hepatitis [...] a test for HCV RNA (test code 00993) is suggested. For additional information please refer to [email or web address]/faq/GBM14s0 (This link is being provided for informational/ educational purposes only.) Blood specimen (specimen) 12/06/2019 10:39 AM CDT 12/06/2019 10:40 AM CDT Narrative [facility] - 12/11/2019 7:24 PM CDT FASTING:YES FASTING: YES Teri [facility] MICROBIOLOGY - GENERA L ORDERABLES Final Result [facility] [id number] [address] [id number] from Last 3 Months or Most Recently Relevant to Health Maintenance Insurance [facility] CHOICE PLUS MEDICARE COMMERCIAL [facility] MEDICARE MEDICARE Care Teams Sample Examiner Relationship Specialty [place] [id number] [address] [facility] [address] [place] [address] PCP - General Family Medicine 10/19/22 Keegan Hill DO Family Medicine 04/28/22 [place] [address] [facility] [address] [place] [address] [employer] Consultant Orthopedic Surgery 02/01/20 Joon Scherer MD [address] [place] [address] Consulting Physician Rheumatology 02/21/23
--- NOTE | 2025-01-01 13:05 | ECHO_ITS ---
Patient Info Name: Leah Bundy Age: 69 years : 1955 Gender: Female Ht: 68 in Wt: 170 lbs BSA: 1.94 m2 HR: 68 bpm BP: 134 / 91 mmHg Technical Quality: Good Exam Date: 01/01/2025 1:12 PM Patient Status: O Admit Date: 01/01/2025 Exam Type: CA echo doppler color flow Complete two-dimensional, color flow and Doppler transthoracic echocardiogram is performed. Journal Entry Audit Clerk: Nuha Kearns Attending Provider: Kamila Katz Summary 1. Complete two-dimensional, color flow and Doppler transthoracic echocardiogram is performed. 2. Left ventricular chamber dimension is normal. 3. Left ventricular systolic function is normal, estimated at 60-65. 4. There is mild concentric increased left ventricular wall thickness. 5. The left ventricular diastolic function is grade I diastolic dysfunction. 6. E/e' 7 is not elevated. 7. There is mild aortic valve sclerosis. 8. There is mild aortic valve regurgitation. 9. There is mild mitral valve regurgitation. Left Ventricle E/e' 7 is not elevated. Left ventricular chamber dimension is normal. Left ventricular systolic function is normal, estimated at 60-65. There is mild concentric increased left ventricular wall thickness. The left ventricular diastolic function is grade I diastolic dysfunction. Right Ventricle Right ventricular chamber dimension is normal. Right ventricular systolic function is normal and with normal TAPSE 1.8 cm. Left Atria Left atrial chamber dimension is normal. Right Atria Right atrial chamber dimension is normal. Aortic Valve The aortic valve is trileaflet. There is mild aortic valve sclerosis. There is no aortic valve stenosis. There is mild aortic valve regurgitation. Pulmonic Valve There is no pulmonic regurgitation. Mitral Valve There is no mitral valve stenosis. There is mild mitral valve regurgitation. Tricuspid Valve There is no tricuspid valve regurgitation. Pericardium/Pleural There is no pericardial effusion. Inferior Vena Cava Normal inferior vena cava with >50% collapse upon inspiration consistent with normal right atrial pressure, 5 mmHg. Aorta The aortic root size at the sinus of Valsalva is normal. Left Ventricular Outflow Tract Name Value Normal LVOT 2D LVOT Diameter 2.0 cm LVOT Doppler LVOT Peak Velocity 100 cm/s LVOT Peak Gradient 4 mmHg LVOT Mean Gradient 3 mmHg LVOT VTI 25 cm LVOT Stroke Volume 75 ml LVOT CO 5.1 l/min LVOT CI 2.6 l/min/m2 Pulmonic Valve Name Value Normal RVOT Doppler RVOT Peak Velocity 57 cm/s RVOT Peak Gradient 1 mmHg PV Doppler PV Peak Velocity 81 cm/s PV Peak Gradient 3 mmHg Mitral Valve Name Value Normal MV Diastolic Function MV E Peak Velocity 59 cm/s MV A Peak Velocity 89 cm/s MV E/A 0.7 MV Decel Time (PW) 271 ms MV Annular TDI MV E/e' (Septal) 8.1 MV E/e' (Lateral) 6.3 MV E/e' (Average) 7.2 Tricuspid Valve Name Value Normal Estimated PAP/RSVP RA Pressure 5 mmHg <=5 Aortic Valve Name Value Normal AV Doppler AV Peak Velocity 151 cm/s AV Peak Gradient 9 mmHg AV Area (Cont Eq Jareth) 2.0 cm2 AV DI (Jareth) 0.66 AV Regurgitation 2D LVOT Area 3.0 cm2 Ventricles Name Value Normal LV Dimensions 2D/MM IVS Diastolic Thickness (2D) 1.2 cm 0.6-1.0 LVID Diastole (2D) 4.4 cm 3.8-5.2 LVIW Diastolic Thickness (2D) 1.2 cm 0.6-0.9 LVID Systole (2D) 3.0 cm 2.2-3.5 LVOT Diameter 2.0 cm LV Mass (2D Cubed) 188.72 g 67.00-162.00 LV Mass Index (2D Cubed) 98 g/m2 43-95 Relative Wall Thickness (2D) 0.53 <=0.42 LV Fractional Shortening/Ejection Fraction 2D/MM LV Fractional Shortening (2D) 32 % 27-45 LV EF (2D Teichholz) 60 % LV Diastolic Volume (4C MOD) 64 ml LV EF (4C MOD) 57 % LV Diastolic Volume (2C MOD) 75 ml LV EF (2C MOD) 57 % LV Diastolic Volume (BP MOD) 69 ml 46-106 LV Diastolic Volume Index (BP MOD) 36 ml/m2 29-61 LV Systolic Volume (BP MOD) 30 ml 14-42 LV Systolic Volume Index (BP MOD) 15 ml/m2 8-24 LV EF (BP MOD) 57 % 54-74 LV Diastolic Length (4C) 7.6 cm LV Systolic Length (4C) 6.4 cm LV Stroke Volume (4C MOD) 37 ml Atria Name Value Normal LA Dimensions LA Volume (4C A-L) 42 ml LA Volume (BP A-L) 41 ml RA Dimensions RA Systolic Major [place] Length (4C) 4.8 cm 2.2-2.8 RA Area (4C) 11.5 cm2 <=18.0 Report Signatures
== END 2025-01-01 12:33 | disposition home or self-care (01) ==
PROVIDERS: PCP Family Medicine; Visit Provider Family Medicine
DX: R93.1 Abnormal findings on diagnostic imaging of heart and coronary circulation (principal); R01.1 Cardiac murmur, unspecified
CPT/HCPCS: 93306

== ENCOUNTER 2025-01-07 15:49 | Outpatient (CLI) | payer MEDICARE, SELFPAY ==
--- NOTE | ~2025-01-07 | XR_ITS ---
XR hip RT 2V w AP pelvis 01/07/2025 16:25 Indication: Right hip pain Procedure: AP pelvis and 2 views right hip Comparison: No prior studies for comparison. Findings: There is mild osteoarthritis of the right hip. No fracture, subluxation or dislocation. The re is osteitis pubis. No significant soft tissue abnormality. Impression: 1: Mild osteoarthritis right hip. Reviewed, dictated and finalized at location A. Impression: 1: Mild osteoarthritis right hip.
== END 2025-01-07 15:50 | disposition home or self-care (01) ==
PROVIDERS: PCP Family Medicine; Visit Provider Physician Assistant
DX: M16.11 Unilateral primary osteoarthritis, right hip (principal)
CPT/HCPCS: 73502

== ENCOUNTER 2025-02-16 14:12 | Emergency (ER) | payer MEDICARE, SELFPAY ==
[2025-02-16 14:45] VITALS: BP 102/72; PULSE 94; RESP 18; TEMP 36.6; O2SAT 98
--- NOTE | 2025-02-16 14:54 | ED.URI ---
HPI - URI/Sore Throat General Chief Complaint: Upper Respiratory Infection Stated Complaint: COUGH Source: patient and RN notes reviewed Mode of arrival: ambulatory Limitations: no limitations History of Present Illness HPI Narrative: 69 y/o female presented for nasal congestion, cough, and sore throat. Onset 2 weeks. Symptoms started after a cruise. Denies sob, wheezing, n/v/d/f/c. Taking Sudafed, and takes Zyrtec daily. MD elicited complaint: cough Related Data Home Medications ?Medication ?Instructions ?Recorded ?Confirmed ?Last Taken ?Type methotrexate sodium 2.5 mg tablet 20 mg PO WEEKLY 08/20/20 02/07/25 Unknown History vit C 250 mg-vit E 200 unit-zinc 1 tablet PO BID 03/11/22 02/07/25 Unknown History 12.5 mg-copper 1 [id number]-aam-glubyx tablet (ICaps AREDS2 (copper citrate)) omeprazole 20 mg tablet,delayed 20 mg PO DAILY 04/08/22 02/07/25 Unknown History release calcium carbonate (Calcium 600) 600 mg PO DAILY 09/04/22 02/07/25 Unknown History cholecalciferol (vitamin D3) 25 25 mcg PO DAILY 09/04/22 02/07/25 Unknown History mcg (1,000 unit) capsule (Vitamin D3) golimumab 12.5 mg/mL intravenous 12.5 mg IV PER PKG DIR 10/06/22 02/07/25 Unknown History solution (Simponi ARIA) folic acid 1 mg tablet 2 mg PO DAILY 11/21/24 02/07/25 Unknown History Allergies Allergy/AdvReac Type Severity Reaction Status Date / Time No Known Allergies Allergy Verified 02/16/25 14:44 Review of Systems Review of Systems: CONSTITUTIONAL: denies malaise, body aches, chills, sweats, fever EYES: Denies visual changes, redness, or discharge ENT: Reports rhinorrhea, congestion, sinus pain, otalgia, sore throat CARDIOVASCULAR: Denies chest pain, palpitations, edema RESPIRATORY: Reports cough, post nasal drainage. Denies dyspnea GASTROINTESTINAL: Denies abdominal pain, nausea, vomiting, diarrhea SKIN: Denies rash or itching NEUROLOGIC: Denies headache PMFSH Past Medical History Medical History Vision changes Closed fracture of lateral malleolus of right ankle Hyperlipidemia Vitamin B12 deficiency Low back pain without sciatica Hx of Sjogren's disease Cervicalgia Cognitive dysfunction On group home drug therapy Gastroesophageal reflux disease Body mass index (bmi) 25.0-25.9, adult Surgical History Surgical History History of eye surgery Right cataract 2021 Right Vitrectomy 2020 History of hysterectomy History of section History of arthroplasty of left shoulder Family History Family History Other Arthritis Diabetes mellitus Heart disease Hypertension Lung cancer Social History Social History Smoking status: Never smoker Second hand tobacco smoke exposure: No Alcohol intake: current Drinks per week: 7 Substance use: never Substance use type: does not use Do You Feel Safe in your Home?: Yes Lack of Transportation: No Lack of Food: Never True Current Housing: I Have Housing Concerned About Future Housing: No Difficulty Paying Gas/Electric Bills: No Difficulty Paying for Meds: No Currently Unemployed: No Education: Associate Degree Difficulty w/ Childcare or Family Care: No Living arrangements: with family Occupation/Education: retired Gender identity (if verbalized by the patient): Female Exam Narrative: GENERAL: mildly ill-appearing EYES: conjunctivae clear ENT: Mucous membranes moist. TM pearly dumont with dull light reflex bilaterally; no tragal tenderness. Oropharynx not erythematous without lesions or exudate, no drooling, no hoarseness, no trismus, uvula midline. No tripod positioning, muffled voice, soft palate or pharyngeal wall bulging NECK: Supple. No lymphadenopathy CHEST: Clear to auscultation, breath sounds equal. No wheezing, rhonchi, rales, or stridor. No respiratory distress, speaks in full sentences. HEART: Regular rate and rhythm. No murmur heard. SKIN: Warm, dry, no rash. NEURO: Alert and oriented x3. PSYCH: Normal mood and affect Course Course Emergency Course: Patient is aware of diagnosis, understands and agrees to treatment plan. Anticipatory guidance given. Patient agrees to follow-up as directed and is aware of reasons to seek care at the emergency department. Portions of this record may have been created with voice recognition software Level of Care: Express Care Visit Vital Signs Vital signs: Vital Signs Temperature 97.8 F 02/16/25 14:45 Pulse Rate 94 02/16/25 14:45 Respiratory Rate 18 02/16/25 14:45 Blood Pressure 102/72 02/16/25 14:45 Pulse Oximetry 98 02/16/25 14:45 Oxygen Delivery Room Air 02/16/25 14:45 Temperature 97.8 F 02/16/25 14:45 Pulse Rate 94 02/16/25 14:45 Respiratory Rate 18 02/16/25 14:45 Blood Pressure 102/72 02/16/25 14:45 Pulse Oximetry 98 02/16/25 14:45 Oxygen Delivery Room Air 02/16/25 14:45 reviewed MDM - URI/Sore Throat MDM Narrative Medical decision making narrative: Discussed physical exam findings c/w sinusitis. Reviewed RX. Advised supportive measures and signs/symptoms to go to the ER. Pt is appropriate for outpt treatment and f/u. Differential Diagnosis Differential diagnosis: Likely upper respiratory infection, sinusitis and viral infection Discharge Plan Discharge Clinical Impression: Sinusitis Patient Disposition: Home Condition: Stable Instructions: Antibiotic Form, Sinusitis (ED) Additional Instructions: Take antibiotic as directed Recommend Flonase spray and Zyrtec (or Claritin/Manuela) over the counter Cough syrup may cause drowsiness; avoid driving or take it at night time. Tylenol 1000mg every 8 hours as needed for pain Symptomatic treatment includes: rest, fluids, and increase humidity of the air at home. Follow up with your primary care provider in 1 week. Go to the ER for worsening symptoms or concerns. Patient Language: Slovenian Prescriptions: New amoxicillin-pot clavulanate 875-125 mg tablet 1 tablet PO Q12H 7 Days Qty: 14 0RF No Action calcium carbonate [Calcium 600] 600 mg calcium (1,500 mg) Tablet 600 mg PO DAILY cholecalciferol (vitamin D3) [Vitamin D3] 25 mcg (1,000 unit) Capsule 25 mcg PO DAILY Simponi ARIA 12.5 mg/mL solution 12.5 mg IV PER PKG DIR Rx Instructions: once every 2 months (DME) Aerochamber MV Spacer See Rx Instructions .Route Qty: 1 0RF Rx Instructions: Use with inhaler folic acid 1 mg tablet 2 mg PO DAILY methotrexate sodium 2.5 mg tablet 20 mg PO WEEKLY ICaps AREDS2 (copper citrate) 250 mg-200 unit -12.5 mg-1 mg tablet 1 tablet PO BID omeprazole 20 mg tablet,delayed release (DR/EC) 20 mg PO DAILY Patient Comments: on provided med list escitalopram oxalate 20 mg tablet See Rx Instructions .ROUTE .COMPLEX Qty: 90 1RF Dose Instruction: TAKE 1 TABLET BY MOUTH DAILY Rx Instructions: TAKE 1 TABLET BY MOUTH DAILY Follow-up/Referrals: Kamila Katz DO [Primary Care Provider, [facility]] Time of Disposition: 14:59
== END 2025-02-16 15:10 | disposition home or self-care (01) ==
PROVIDERS: Emergency Provider Nurse Practitioner Family; PCP Family Medicine
DX: J32.9 Chronic sinusitis, unspecified (principal); E78.5 Hyperlipidemia, unspecified; M35.00 Sjogren syndrome, unspecified; K21.9 Gastro-esophageal reflux disease without esophagitis
CPT/HCPCS: 99213; G0463

== ENCOUNTER 2025-05-23 15:21 | Outpatient (CLI) | payer MEDICARE, SELFPAY ==
--- OUTSIDE RECORDS SUMMARY | 2025-05-22 08:30 | XMS_ITS | Encounter Summary ---
Author Organization [facility] Address [address] [place] [address] Phone Care Team Providers Care Rock Breaker Name Role Phone Keegan Hill DO Unavailable [phone] Jazmyn Cardoso Unavailable [phone] Kamila Katz DO Primary Care Provider + Joon Scherer MD Unavailable [phone] Encounter Details Date Type Department Care Team (Late st Contact Info) Description 05/22/2025 8:30 AM MAGAZINE HAND Office Visit [facility] [address] [place] [address] Teri Norwood PA [address] [place] [address] Psoriatic arthritis (HCC) (Primary Dx); Psoriasis; Sjogren's syndrome, with unspecified organ involvement; Encounter for medication monitoring Social History Tobacco Use Types Packs/Day Years Used Date Smoking Tobacco: Never Passive Smoke Exposure: Never Smokeless Tobacco: Never Alcohol Use Standard Drinks/Week Comments Yes 0 (1 standard drink = 0.6 oz pur e alcohol) daily 2 glasses of wine Comments No Sex and Gender Information Value Date Recorded Sex Assigned at Not on file Legal Sex Female 10:40 AM MAGAZINE HAND Gender Identity Not on file Sexual Orientation Not on file 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 Not on file Not on file documented as of this encounter Last Filed Vital Signs Vital Sign Reading Time Taken Comments Blood Pressure 120/68 05/22/2025 8:36 AM MAGAZINE HAND Pulse 75 05/22/2025 8:36 AM MAGAZINE HAND Temperature - - Respiratory Rate - - Oxygen Saturation 98% 05/22/2025 8:36 AM MAGAZINE HAND Inhaled Oxygen Concentration - - Weight 79.3 kg (174 lb 12.8 oz) 05/22/2025 8:36 AM MAGAZINE HAND Height 172.7 cm (5' 8) 05/22/2025 8:36 AM MAGAZINE HAND Body Mass Index 26.58 05/22/2025 8:36 AM MAGAZINE HAND documented in this encounter Progress Notes * Teri Norwood PA - 05/22/2025 8:30 AM CST Images from the original note were not included. Subjective/Objective Patient ID: Leah Bundy is a 70 y.o. female. Chief Complaint: PsA HPI Returns for routine follow up. On methotrexate 20 mg po weekly with folic acid daily and Simponi aria. She received a dose of Simponi aria on 12/31 and then not again until 04/02, initially delayed due to illness and then due to surgery. She underwent R L5-S1 laminotomy, medial facetectomy, and resection of synovial cyst on 03/14/2025. Then on 03/21 she underwent lower blepharoplasty bilaterally. Unfortunately, in the last 2 weeks her pain has flared substantially. First began gradually in her shoulders then quickly spread to her hands, hips, and knees. Initially she denies any pain at rest, though later states that her hands are throbbing at rest, she did not consider this to be pain. Withmovement rates her pain a 10/10. Feels more stiff in the morning for 30 minutes. PsO has also been flaring some on her legs again. Review of Systems Constitutional: Negative for chills and fever. HENT: Negative for congestion and mouth sores. Respiratory: Negative for cough and shortness of breath. Cardiovascular: Negative for chest pain. Gastrointestinal: Negative for abdominal pain, diarrhea, nausea and vomiting. Musculoskeletal: + for joint pain. Negative for myalgias. Skin: Neg for rash. Physical Exam Constitutional: appears well-developed and well-nourished. HENT: Head: Normocephalic. Ears: Normal external appearance Mouth/Throat: Oropharynx is clear and moist. Eyes: Conjunctivae are normal. Cardiovascular: Normal rate, regular rhythm Pulmonary/Chest: Effort normal. Clear to auscultation bilaterally. Musculoskeletal: See cdai. L proximal UE ttp, R proximal UE and B proximal LE non-tender. Heberden's node L 2nd DIP. Neurological: alert and oriented Skin: Skin is warm and dry. Psychiatric: normal mood and affect. speech is normal Patient Global: 100 / 100 Provider Global: 50 / 100 Cdai = 31 Remission: 0-3 Low: 4-10 Moderate: 11-22 High: 23-76 Medication Taking/taken Comments Hydroxychloroquine x Methotrexate X Started 12/2019 Leflunomide Azathioprine Sulfasalazine CellCept Humira x 07/2020-08/2022 Enbrel Simponi Cimzia Simponi aria X Started 08/2022 Remicade Orencia Cosentyx Taltz Stelara Tremfya Xeljanz Rinvoq Actemra Kevzara Olumiant Kineret Benlysta Rituxan Otezla Nsaids Steroids x IM triamcinolone 11/17/2021, 05/27/2022 (modest benefit), 09/26/2023 Prednisone 07/2022 Bold 'X' indicates a current medication Assessment/Plan Diagnoses and all orders for this visit: Psoriatic arthritis (HCC) (Primary) Assessment & Plan: High cdai. Unfortunately she went without Simponi aria for 4 months due to illness and then surgery, now back on x1 dose. Due to burden of disease will give patient a triamcinolone injection. Patientmade aware of SE of steroids including but not limited to HTN, increased blood glucose, cataracts, glaucoma, AVN, and osteoporosis with watermaster use. Otherwise will continue Simponi aria with methotrexate 20 mg po weekly with folic acid 1 mg daily and allow time for effect again. Labs as below. Plan for follow up in 4 months to reassess or sooner as needed should symptoms persist. Orders: - CRP (acute phase); Future - Erythrocyte sedimentation rate; Future - triamcinolone (KENALOG) 40 mg/mL injection 100 mg Psoriasis Assessment & Plan: Will continue as above. Sjogren's syndrome, with unspecified organ involvement Assessment & Plan: Pt reports prior dx of Sjogren's and recalls having been treated with hydroxychloroquine in the past. Labs show +MIRA, Ro60, and SSB c/w Sjogren's. Recommend conservative treatment including frequent sips of water, Biotene mouthwash, artificial tears, and use of a humidifier at home. Pt should see the dentist and eye doctor regularly. Encounter for medication monitoring Assessment & Plan: Hepatitis negative 11/2019 Tspot negative 07/2022 Continue routine lab monitoring Orders: - CBC with auto differential; Future - Comprehensive metabolic panel; Future Cosigned by Joon Scherer MD at 05/23/2025 9:37 AM MAGAZINE HAND ZINE HAND ZINE HAND documented in this encounter Miscellaneous Notes * Assessment & Plan Note - Teri Norwood PA - 05/22/2025 8:13 AM MAGAZINE HAND Associated Problem(s): Sjogren's syndrome Pt reports prior dx of Sjogren's and recalls having been treated with hydroxychloroquine in the past. Labs show +MIRA, Ro60, and SSB c/w Sjogren's. Recommend conservative treatment including frequent sips of water, Biotene mouthwash, artificial tears, and use of a humidifier at home. Pt should see the dentist and eye doctor regularly. ZINE HAND * Assessment & Plan Note - Teri Norwood PA - 05/22/2025 8:13 AM MAGAZINE HAND Associated Problem(s): Psoriatic arthritis (HCC) High cdai. Unfortunately she went without Simponi aria for 4 months due to illness and then surgery, now back on x1 dose. Due to burden of disease will give patient a triamcinolone injection. Patientmade aware of SE of steroids including but not limited to HTN, increased blood glucose, cataracts, glaucoma, AVN, and osteoporosis with prison use. Otherwise will continue Simponi aria with methotrexate 20 mg po weekly with folic acid 1 mg daily and allow time for effect again. Labs as below. Plan for follow up in 4 months to reassess or sooner as needed should symptoms persist. ZINE HAND ZINE HAND * Assessment & Plan Note - Teri Norwood PA - 05/22/2025 8:13 AM MAGAZINE HAND Associated Problem(s): Psoriasis Will continue as above. ZINE HAND * Assessment & Plan Note - Teri Norwood PA - 05/22/2025 8:13 AM MAGAZINE HAND Associated Problem(s): Encounter for medication monitoring Hepatitis negative 11/2019 Tspot negative 07/2022 Continue routine lab monitoring ZINE HAND documented in this encounter Plan of Treatment Not on file documented as of this encounter Procedures Procedure Name Priority Date/Time Associated Diagnosis Comments CBC WITH AUTO DIFFERENTIAL Routine 05/22/2025 9:01 AM MAGAZINE HAND Encounter for medication monitoring ERYTHROCYTE SEDIMENTATION RATE Routine 05/22/2025 9:01 AM MAGAZINE HAND Psoriatic arthritis (HCC) CRP (ACUTE PHASE) Routine 05/22/2025 9:0 1 AM MAGAZINE HAND Psoriatic arthritis (HCC) COMPREHENSIVE METABOLIC PANEL Routine 05/22/2025 9:01 AM MAGAZINE HAND Encounter for medication monitoring documented in this encounter Results * Erythrocyte sedimentation rate (05/22/2025 9:01 AM MAGAZINE HAND) Erythrocyte sedimentation rate 9 < OR = 30 mm/h [facility] Blood 05/22/2025 9:01 AM MAGAZINE HAND 05/22/2025 9:01 AM MAGAZINE HAND Teri Hilarytobi DAVE LAB BLOOD ORDERABLES Ifrah l Result Performing Organization Address City/[facility]/ZIP Co de Phone Number [facility] [address] [place] [address] * CRP (acute phase) (05/22/2025 9:01 AM MAGAZINE HAND) C-RP <3.0 <8.0 mg/L [facility] Blood 05/22/2025 9:01 AM MAGAZINE HAND 05/22/2025 9:01 AM MAGAZINE HAND Teri Glynntobi DAVE LAB BLOOD ORDERABLES Ifrah l Result Performing Organization Address [facility] de Phone Number [facility] [address] [place] [address] * (ABNORMAL) Comprehensive metabolic panel (05/22/2025 9:01 AM MAGAZINE HAND) Pathologist [facility] Glucose 66 65 - 99 mg/dL [facility] Comment: Fasting reference interval BUN 29(H) 7 - 25 mg/dL [facility] Creatinine 0.98 0.50 - 1.05 mg/dL [facility] eGFR 62 > OR = 60 mL/min/1.7 3m2 [facility] BUN/creat ratio 30(H) 6 - 22 (calc) [facility] Sodium 137 135 - 146 mmol/L [facility] Potassium, pl 5.2 3.5 - 5.3 mmol/L [facility] Chloride 101 98 - 110 mmol/L [facility] CO2 29 20 - 32 mmol/L [facility] Calcium 9.8 8.6 - 10.4 mg/dL [facility] Protein, sr 7.0 6.1 - 8.1 g/dL [facility] Albumin 4.3 3.6 - 5.1 g/dL [facility] GLOBULIN 2.7 1.9 - 3.7 g/dL (calc) [facility] Alb/glob ratio 1.6 1.0 - 2.5 (calc) [facility] Bilirubin, total 0.6 0.2 - 1.2 mg/dL [facility] Alk phos 63 37 - 153 U/L [facility] AST 21 10 - 35 U/L [facility] ALT (SGPT) 21 6 - 29 U/L [facility] Blood 05/22/2025 9:01 AM MAGAZINE HAND 05/22/2025 9:01 AM MAGAZINE HAND us Teri DAVE LAB BLOOD ORDERABLES Ifrah l Result [facility] [address] [address] [place] [address] * (ABNORMAL) CBC with auto differential (05/22/2025 9:01 AM MAGAZINE HAND) WBC 4.4 3.8 - 10.8 Thousand/u L [facility] RBC, POC 4.25 3.80 - 5.10 Million/uL [facility] Hgb 14.3 11.7 - 15.5 g/dL [facility] Hct 44.1 35.9 - 46.0 % [facility] MCV 103.8(H) 81.4 - 101.7 fL [facility] MCH 33.6(H) 27.0 - 33.0 pg [facility] MCHC 32.4 31.6 - 35.4 g/dL [facility] Rdw 12.4 11.0 - 15.0 % [facility] Platelets 185 140 - 400 Thousand/u L [facility] MPV 10.8 7.5 - 12.5 fL [facility] Neutrophils, abs 2,112 1,500 - 7,800 cells/uL [facility] Lymphocytes, abs 1,452 850 - 3,900 cells/uL [facility] Monocyte abs 603 200 - 950 cells/uL [facility] Eosinophils, abs 202 15 - 500 cells/uL [facility] Basophils, abs 31 0 - 200 cells/uL [facility] Neutrophils 48 % [facility] Lymphocyte pct 33.0 % [facility] Monocytes 13.7 % [facility] Eosinophils 4.6 % [facility] Basophils 0.7 % [facility] Blood 05/22/2025 9:01 AM MAGAZINE HAND 05/22/2025 9:01 AM MAGAZINE HAND us Teri DAVE LAB BLOOD ORDERABLES Ifrah l Result [facility] [address] [place] [address] documented in this encounter Visit Diagnoses Diagnosis Psoriatic arthritis (HCC)- Primary Psoriatic arthropathy Psoriasis Other psoriasis Sjogren's syndrome, with unspecified organ involvement Encounter for medication monitoring Encounter for therapeutic drug monitoring documented in this encounter Administered Medications Inactive Administered Medications - up to 3 most recent administrations Medication Order MAR Action Action Date Dose Rate Site triamcinolone (KENALOG) 40 mg/mL injection 100 mg 100 mg, intramuscular, Once, On Tue05/22/25 at 0930, For 1 doseIndications:Psoriati c arthritis (HCC) Given 05/22/2025 9:10 AM MAGAZINE HAND 100 mg Left Dorsogluteal/Butto ck documented in this encounter Orders Medications Ordered That Farooq ht Not Have Been Administered Count Last Ordered Date First Ordered Date triamcinolone (KENALOG) 40 m g/mL injection 100 mg 1 05/22/2025 documented in this encounter Care Teams Rock Breaker Relationship Specialty [place] [address] [facility] [address] [place] [address] PCP - General Family Medicine 10/19/22 Keegan Hill DO Family Medicine 04/28/22 [place] [address] [facility] [address] [place] [address] Physician Embossed Or Impressed Lettering Painter Orthopedic Surgery 02/01/20 Joon Scherer MD [address] [facility] [address] [facility] [address] [place] [address] Consulting Physician Rheumatology 02/21/23 documented as of this encounter
--- OUTSIDE RECORDS SUMMARY | 2025-05-23 18:22 | XMS_ITS ---
Author Name DENISE WATTS Address [address] [place] [address] Phone [facility] Address [address] [place] [address] Phone Care Team Providers Care Information Systems Security Analyst Name Role Phone DO DENISE WATTS Unavailable ALLERGIES, ADVERSE REACTIONS AND ALERTS Allergy Name Allergy Date Allergy Status Allergy Severity Allergy Reaction UNKNOWN DRUG ALLERGIES MAY E XIST MEDICATIONS RxNorm Brand Name Prescription Ordered Value Order Unit Start Date Date Status Fill Status Indications [id number] Humira(C F) Pen 40 mg/0.4 mL pen injector kit SIG: Humira(CF) Pen 40 mg/0.4 mL subcutaneous pen injector kit, 28 days, Dispense #2 Each, 0 RefillsDirecti ons: Inject 0.4 mL (40 mg total) subcutaneously (under the skin) every 14 (fourteen) days 2 pen injecto r kit 2021 Current [id number] folic acid 1 mg tablet SIG: folic acid 1 mg oral tablet, 90 days, Dispense #90 Tablet, 0 RefillsDirecti ons: Take 1 oral tablet once a day 90 tablet 2021 Current [id number] methotre xate sodium 2.5 mg tablet SIG: methotrexate sodium 2.5 mg oral tablet, 28 days, Dispense #4 Tablet, 2 RefillsDirecti ons: Take 1 oral tablet per week 4 tablet 2021 Current [id number] escitalo pram oxalate 20 mg tablet SIG: escitalopram oxalate 20 mg oral tablet, 30 days, Dispense #30 Tablet, 2 RefillsDirecti ons: Take 1 oral tablet once a day 30 tablet 2021 Historic [id number] omeprazo le 20 mg capsule, delayed release( DR/EC) SIG: omeprazole 20 mg oral capsule,delaye d release(DR/EC) , 90 days, Dispense #90 Capsule, 0 RefillsDirecti ons: Take 1 oral capsule once a day 90 capsule ,delaye d release (DR/EC) 2021 Current [id number] PreserVi vivienne AREDS 2,148 mcg-113 mg-45 mg-17.4m g tablet SIG: PreserVision AREDS 2,148 mcg-113 mg-45 mg-17.4mg oral tablet, 30 days, Dispense #60 Tablet, 0 RefillsDirecti ons: Take 1 oral tablet twice a day 60 tablet 2021 Current [id number] Kenalog 0.147 mg/gram aerosol SIG: Kenalog 0.147 mg/gram topical aerosol, 63 days, Dispense #63 Gram, 0 RefillsDirecti ons: Take 1 topical gram once a day 63 aerosol 2021 Current Collagen -- capsule SIG: Collagen -- oral capsule, 30 days, Dispense #30 -, 0 RefillsDirecti ons: Take 1 oral tablet daily 30 capsule 2021 Current [id number] Vitamin D3 125 mcg (5,000 unit) tablet [...] once a day 30 tablet 2021 Current [id number] escitalo pram oxalate 20 mg tablet SIG: escitalopram oxalate 20 mg oral tablet, 90 days, Dispense #90 Tablet, 0 RefillsDirecti ons: Take 1 oral tablet once a day 90 tablet 2022 Historic [id number] escitalo pram oxalate 20 mg tablet SIG: escitalopram oxalate 20 mg oral tablet, 7 days, Dispense #7 Tablet, 0 RefillsDirecti ons: Take 1 oral tablet once a day 7 tablet 2022 023 Historic [id number] escitalo pram oxalate 20 mg tablet SIG: escitalopram oxalate 20 mg oral tablet, 90 days, Dispense #90 Tablet, 0 RefillsDirecti ons: Take 1 oral tablet once a day 90 tablet 2022 Historic [id number] ESCITALO PRAM 20MG TABLETS 20 mg tablet SIG: ESCITALOPRAM 20MG TABLETS, Dispense #90, 0 Refills, Directions: TAKE 1 TABLET BY MOUTH EVERY DAY 90 tablet 2022 Current [id number] ESCITALO PRAM 20MG TABLETS 20 mg tablet [...] Social Status Observation Never Smoker Sex: Female Gender Identity: Female CARE TEAM INFORMATION Information Systems Security Analyst Provider ID Role Location Phone DENISE WATTS [id number] PHYSICIAN [address] [place] [address] INSURANCE PROVIDERS Payer Name Policy type / Covera ge type Covered democrat ID Policy [employer] [employer] Private Health Insurance [id number] SELF
--- OUTSIDE RECORDS SUMMARY | 2025-05-23 18:22 | XMS_ITS | Clinical Summary ---
Author Organization [facility] Address [address] [place] [address] Phone Care Team Providers Care Machine Learning Intern Name Role Phone Keegan Hill DO Unavailable [phone] Jazmyn Cardoso Unavailable [phone] Kamila Katz DO Primary Care Provider + Joon Scherer MD Unavailable [phone] Allergies No known active allergies Medications escitalopram (LEXAPRO) 20 mg tablet Take 20 mg by mouth every morning 9 Active clobetasoL (TEMOVATE) 0.05 % external solution CASTRO 1 ML EXT TO THE SCALP HS FOR 2 WKS 0 Active folic acid (FOLVITE) 1 mg tablet TAKE 1 TABLET BY MOUTH DAILY 90 tablet 1 3 Active cholecalcifero l (VITAMIN D-3) 1,000 unit capsule Take 25 mcg by mouth 3 Active calcium carbonate (OS-LEXI) 1,500 mg (600 mg elemental) tablet Take 600 mg by mouth 3 Active vit C/E/Zn/coppr/l utein/zeaxan (PRESERVISION AREDS-2 ORAL) Take 1 tablet by mouth 2 Active omeprazole (PriLOSEC) 20 mg capsule Take 1 capsule (20 mg total) by mouth 2 Active methotrexate 2.5 mg tablet TAKE 8 TABLETS BY MOUTH EVERY 7 DAYS 96 tablet 5 Active methotrexate 2.5 mg tabletIndicati ons:autoimmune disease Take 8 tablets (20 mg total) by mouth every 7 days 96 tablet 5 04/29/20 25 Discontinued Hospital, Clinic, or Other Facility Administered Medication Ordered Dose Route Frequency Start Date End Date Status triamcinolone (KENALOG) 40 mg/mL injection 100 mgIndications:Psoriatic arthritis (HCC) 100 mg IM Once 05/22/2025 05/22/2025 Ended Active Problems Problem Noted Date Diagnosed Date Vaccine counseling 05/13/2021 Assessment & Plan (05/13/2021 10:44 AM PRODUCTION MACHINE TENDER): Received Pfizer booster Recommend she get Shingrix Recommend she get [id number] and then 8+ weeks later get [id number] Closed nondisplaced fracture of styloid process of [...] work note Psoriasis 07/04/2020 Assessment & Plan (05/22/2025 8:13 AM PRODUCTION MACHINE TENDER): Will continue as above. Assessment & Plan (02/05/2025 8:23 AM CDT): Will continue as above. Assessment & Plan (09/18/2024 2:24 PM CDT): Will continue as above. Assessment & Plan (05/22/2024 8:17 AM PRODUCTION MACHINE TENDER): Will continue as above. Assessment & Plan (01/17/2024 3:40 PM CDT): Will continue as above. Assessment & Plan (09/26/2023 12:44 PM CDT): Will continue as above. Assessment & Plan (05/20/2023 2:40 PM PRODUCTION MACHINE TENDER): Will continue as above. Assessment & Plan (02/21/2023 12:29 PM CDT): Will continue as above. Assessment & Plan (10/18/2022 9:57 AM CDT): Will continue as above. Assessment & Plan (07/21/2022 12:51 PM PRODUCTION MACHINE TENDER): Will continue as above. Assessment & Plan (05/26/2022 12:58 PM PRODUCTION MACHINE TENDER): Will continue as above. Assessment & Plan (02/24/2022 3:15 PM CDT): Will continue as above. Assessment & Plan (11/16/2021 1:01 PM CDT): Will continue as above. Assessment & Plan (08/12/2021 8:58 AM PRODUCTION MACHINE TENDER): Will continue as above. Assessment & Plan (05/13/2021 8:58 AM PRODUCTION MACHINE TENDER): Will continue as above. Assessment & Plan (03/11/2021 11:32 AM CDT): Will continue as above. Assessment & Plan (12/10/2020 12:14 PM CDT): Will continue Humira as above. Consider follow up with derm for possible topical treatments in the meantime - she will see if her PCP can recommend a assembler unit closer to her home. Assessment & Plan (09/05/2020 9:53 AM CDT): Flaring on scalp, minimal in L ear. Humira as above. Consider follow up with derm for possible topical treatments in the meantime. Assessment & Plan (07/04/2020 11:02 AM PRODUCTION MACHINE TENDER): Flaring on scalp, minimal in L ear. Will add Humira as above. Consider follow up with derm for possible topical treatments in the meantime. Encounter for medication monitoring 01/30/2020 Assessment & Plan (05/22/2025 8:13 AM PRODUCTION MACHINE TENDER): Hepatitis negative 11/2019 Tspot negative 07/2022 Continue routine lab monitoring Assessment & Plan (02/05/2025 8:23 AM CDT): Hepatitis negative 11/2019 Tspot negative 07/2022 Continue routine lab monitoring Assessment & Plan (09/18/2024 2:24 PM CDT): Hepatitis negative 11/2019 Tspot negative 07/2022 Continue routine lab monitoring Assessment & Plan (05/22/2024 8:17 AM PRODUCTION MACHINE TENDER): Hepatitis negative 11/2019 Tspot negative 07/2022 Continue routine lab monitoring Assessment & Plan (01/17/2024 3:40 PM CDT): Hepatitis negative 11/2019 Tspot negative 07/2022 Continue routine lab monitoring Assessment & Plan (09/26/2023 12:44 PM CDT): Hepatitis negative 11/2019 Tspot negative 07/2022 Continue routine lab monitoring Assessment & Plan (05/20/2023 2:40 PM PRODUCTION MACHINE TENDER): Hepatitis negative 11/2019 Tspot negative 07/2022 Continue routine lab monitoring Assessment & Plan (02/21/2023 12:29 PM CDT): Hepatitis negative 11/2019 Tspot negative 07/2022 Continue routine lab monitoring Assessment & Plan (10/18/2022 10:00 AM CDT): Hepatitis negative 11/2019 Tspot negative 07/2022 Continue routine lab monitoring Assessment & Plan (07/21/2022 12:51 PM PRODUCTION MACHINE TENDER): Hepatitis negative 11/2019 Continue routine lab monitoring Assessment & Plan (05/26/2022 12:58 PM PRODUCTION MACHINE TENDER): Hepatitis negative 11/2019 Continue routine lab monitoring Assessment & Plan (02/24/2022 3:15 PM CDT): Hepatitis negative 11/2019 Continue routine lab monitoring Assessment & Plan (11/16/2021 1:01 PM CDT): Hepatitis negative 11/2019 Continue routine lab monitoring Assessment & Plan (08/12/2021 8:58 AM PRODUCTION MACHINE TENDER): Hepatitis negative 11/2019 Continue routine lab monitoring Assessment & Plan (05/13/2021 8:58 AM PRODUCTION MACHINE TENDER): Hepatitis negative 11/2019 Continue routine lab monitoring Assessment & Plan (03/11/2021 8:58 AM CDT): Hepatitis negative 11/2019 Continue routine lab monitoring Assessment & Plan (12/09/2020 4:03 PM CDT): Hepatitis negative 11/2019 Continue routine lab monitoring Assessment & Plan (09/04/2020 10:19 AM CDT): Hepatitis negative 11/2019 Continue routine lab monitoring Assessment & Plan (07/02/2020 3:54 PM PRODUCTION MACHINE TENDER): Hepatitis negative 11/2019 Continue routine lab monitoring [...] of the 2nd PIP. Assessment & Plan (05/22/2025 9:02 AM PRODUCTION MACHINE TENDER): High cdai. Unfortunately she went without Simponi aria for 4 months due to illness and then surgery, now back on x1 dose. Due to burden of disease will give patient a triamcinolone injection. Patient made aware of SE of steroids including but not limited to HTN, increased blood glucose, cataracts, glaucoma, AVN, and osteoporosis with mcfp use. Otherwise will continue Simponi aria with methotrexate 20 mg po weekly with folic acid 1 mg daily and allow time for effect again. Labs as below. Plan for follow up in 4 months to reassess or sooner as needed should symptoms persist. Assessment & Plan (02/05/2025 10:43 AM CDT): Cdai in remission without inflammatory sounding pain. Will continue Simponi aria with methotrexate 20 mg po weekly with folic acid 1 mg daily and monitor. Labs as below. Plan for follow up in 4 months to reassess or sooner as needed. Assessment & Plan (09/19/2024 9:48 AM CDT): Cdai in remission. Favor L 2nd DIP pain 2/2 OA. Denies inflammatory sounding pain. Will continue Simponi aria with methotrexate 20 mg po weekly with folic acid 1 mg daily and monitor. Labs as below. Plan for follow up in 4 months to reassess or sooner as needed. Assessment & Plan (05/22/2024 10:26 AM PRODUCTION MACHINE TENDER): Cdai in remission. Will continue Simponi aria [...] glucose, cataracts, glaucoma, AVN, and osteoporosis with mcfp use. She was interested in trying the [...] needed. Assessment & Plan (05/23/2023 9:15 AM PRODUCTION MACHINE TENDER): Low cdai. She does have persistent synovitis [...] needed. Assessment & Plan (07/22/2022 11:46 AM PRODUCTION MACHINE TENDER): High cdai. Denies any benefit with Humira. [...] needed. Assessment & Plan (05/27/2022 11:20 AM PRODUCTION MACHINE TENDER): High cdai. Denies any benefit with Humira. [...] glucose, cataracts, glaucoma, AVN, and osteoporosis with mcfp use. Plan for follow up in 8 [...] persists/recurs. Assessment & Plan (08/12/2021 10:35 AM PRODUCTION MACHINE TENDER): Increased synovitis by exam today though her [...] needed. Assessment & Plan (05/13/2021 10:44 AM PRODUCTION MACHINE TENDER): Low cdai. Overall feels improved and stable [...] needed. Assessment & Plan (07/04/2020 11:01 AM PRODUCTION MACHINE TENDER): Moderate cdai of 19 with significant synovitis [...] 04/17/2019 Assessment & Plan (04/17/2019 2:02 PM PRODUCTION MACHINE TENDER): Patient's history and exam is consistent with [...] Depression Assessment & Plan (05/27/2022 11:24 AM PRODUCTION MACHINE TENDER): Feels that this is worse due to [...] Overview (09/17/2016): Sjogren's disease Assessment & Plan (05/22/2025 8:13 AM PRODUCTION MACHINE TENDER): Pt reports prior dx of Sjogren's and recalls having been treated with hydroxychloroquine in the past. Labs show +MIRA, Ro60, and SSB c/w Sjogren's. Recommend conservative treatment including frequent sips of water, Biotene mouthwash, artificial tears, and use of a humidifier at home. Pt should see the dentist and eye doctor regularly. Assessment & Plan (02/05/2025 8:23 AM CDT): Pt reports prior dx of Sjogren's and recalls having been treated with hydroxychloroquine in the past. Labs show +MIRA, Ro60, and SSB c/w Sjogren's. Recommend conservative treatment including frequent sips of water, Biotene mouthwash, artificial tears, and use of a humidifier at home. Pt should see the dentist and eye doctor regularly. Assessment & Plan (09/18/2024 2:24 PM CDT): [...] regularly. Assessment & Plan (05/22/2024 8:17 AM PRODUCTION MACHINE TENDER): Pt reports prior dx of Sjogren's and [...] regularly. Assessment & Plan (05/20/2023 2:40 PM PRODUCTION MACHINE TENDER): Pt reports prior dx of Sjogren's and [...] regularly. Assessment & Plan (07/21/2022 12:50 PM PRODUCTION MACHINE TENDER): Pt reports prior dx of Sjogren's and recalls having been treated with hydroxychloroquine in the past. Labs show +MIRA, Ro60, and SSB c/w Sjogren's. Recommend conservative treatment including frequent sips of water, Biotene mouthwash, artificial tears, and use of a humidifier at home. Pt should see the dentist and eye doctor regularly. Assessment & Plan (05/26/2022 12:58 PM PRODUCTION MACHINE TENDER): Pt reports prior dx of Sjogren's and [...] regularly. Assessment & Plan (08/12/2021 8:58 AM PRODUCTION MACHINE TENDER): Pt reports prior dx of Sjogren's and recalls having been treated with hydroxychloroquine in the past. Labs show +MIRA, Ro60, and SSB c/w Sjogren's. Recommend conservative treatment including frequent sips of water, Biotene mouthwash, artificial tears, and use of a humidifier at home. Pt should see the dentist and eye doctor regularly. Assessment & Plan (05/13/2021 8:58 AM PRODUCTION MACHINE TENDER): Pt reports prior dx of Sjogren's and [...] regularly. Assessment & Plan (07/04/2020 11:02 AM PRODUCTION MACHINE TENDER): Pt reports prior dx of Sjogren's and [...] Encounters Date Type Department Care Team Description 05/23/2025 Results Follow-Up [facility] [address] [place] [address] Teri Norwood PA CBC with auto differential, Comprehensive metabolic panel, CRP (acute phase), Erythrocyte sedimentation rate 05/22/2025 8:30 AM PRODUCTION MACHINE TENDER Office Visit [facility] [address] [place] [address] Teri Norwood PA Psoriatic arthritis (HCC) (Primary Dx); Psoriasis; Sjogren's syndrome, with unspecified organ involvement; Encounter for medication monitoring 04/16/2025 10:30 AM PRODUCTION MACHINE TENDER Office Visit [facility] Medicine Ophthalmology [address], [address] [place] [address] Ernie Martino MD Encounter for cosmetic surgery (Primary Dx) 03/26/2025 3:45 PM CDT Office Visit [facility] Ophthalmology [address], [address] [place] [address] Ernie Martino MD Encounter for cosmetic surgery (Primary Dx) 03/26/2025 Results Follow-Up [facility] Medicine Ophthalmology [address], [address] [place] [phone] Ernie Martino MD Surgical pathology 03/23/2025 Telephone [facility] Medicine Ophthalmology [facility] 3rd [address] [place] [address] Angélica Huston MD 03/22/2025 Orders Only [facility] Medicine Pathology Outreach [address] [place] [address] Ernie Martion MD Lesion of eyelid 03/21/2025 10:00 AM CDT Procedure visit [facility] Ophthalmology [address] [place] [phone] Ernie Martino MD Lesion of eyelid (Primary Dx); Encounter for cosmetic surgery 03/18/2025 Telephone [facility] Ophthalmology [address] [place] [phone] Ernie Martino MD 02/28/2025 10:30 AM CDT Office Visit [facility] Ophthalmology [address] [place] [phone] Ernie Martino MD Dermatochalasis of both lower eyelids (Primary Dx); Benign neoplasm of right lower eyelid from Last 3 Months Immunizations Immunization Administration Dates Next Due Influenza, Quadrivalent, Split, Intramuscular Influenza, Trivalent, IM (MDV) 03/13/2015,2011 Influenza, Trivalent, Preservative Free, Intramu scular 03/13/2013 Influenza, Unspecified 03/13/2017 Tdap 10/10/2012 Surgical History Surgery Date Site/Laterality Comments OTHER SURGICAL HISTORY Sjogerens Syndrome: Naprosyn-joint pain--stable TOTAL ABDOMINAL HYSTERECTOMY Hysterectomy, total SECTION X's 4 BUNIONECTOMY Bilateral SHOULDER SURGERY 02/01/2020 Left rotator cuff CATARACT EXTRACTION Bilateral VITRECTOMY RETINA SURGERY Right retinal tear repair Medical History Medical History Date Comments Depression Depression Hx Other Medical 1976 C section Hx Other Medical 1980 C section Hx Other Medical 1984 C section Hx Other Medical 1988 C section Hx Other Medical 1999 Hsyterectomy Hx Other Medical 1994 Sjogerens Syndr ome Arthritis Arthritis; Comme nts: JKD 04/22/2014 - Irritable bowel syndrome Rotator cuff tear, left Macular degeneration Psoriatic arthritis (HCC) Family History Medical History Relation Name Comments Diabetes Father Diabetes mellit us; Glaucoma Father Heart attack Father Myocardial infa rction; Lung cancer Father Cancer, lung; Other Father Cancer - lung ( smoker); Cause of : Cancer - lung (smoker) Hypertension Mother Hypertension; Macular degeneration Mother Heart disease Other Family history of Heart disease; Benign Breast Condition Neg Hx Ovarian cancer Neg Hx Thyroid cancer Neg Hx Relation Name Status Comments Father Alive Mother Other Social History Tobacco Use Types Packs/Day Years Used Date Smoking Tobacco: Never Passive Smoke Exposure: Never Smokeless Tobacco: Never Tobacco Cessation:Counseling Given: Not Answered Alcohol Use Standard Drinks/Week Comments Yes 0 (1 standard drink = 0.6 oz pur e alcohol) daily 2 glasses of wine Comments No Sex and Gender Information Value Date Recorded Sex Assigned at Not on file Legal Sex Female 10:40 AM PRODUCTION MACHINE TENDER Gender Identity Not on file Sexual Orientation [...] Comments Blood Pressure 120/68 05/22/2025 8:36 AM PRODUCTION MACHINE TENDER Pulse 75 05/22/2025 8:36 AM PRODUCTION MACHINE TENDER Temperature 36.6 C (97.9 F) 08/12/2021 10:11 AM PRODUCTION MACHINE TENDER Respiratory Rate 13 02/01/2020 11:4 5 AM CDT Oxygen Saturation 98% 05/22/2025 8:36 AM PRODUCTION MACHINE TENDER Inhaled Oxygen Concentration - - Weight 79.3 kg (174 lb 12.8 oz) 05/22/2025 8:36 AM PRODUCTION MACHINE TENDER Height 172.7 cm (5' 8) 05/22/2025 8:36 AM PRODUCTION MACHINE TENDER Body Mass Index 26.58 05/22/2025 8:36 AM PRODUCTION MACHINE TENDER Plan of Treatment Health Maintenance Due Date [...] 05/12/2022, 04/30/2020, 11/05/2015 Influenza Vaccine (#1) 2025 , 03/13/2017, 03/13/2016, Additional history exists Breast Cancer Screening-Mammogram 07/05/2025 07/05/2024, 05/12/2022, 04/30/2020, Additional history exists Hepatitis C Screening Completed 12/06/2019 Procedures Procedure Name Priority Date/Time Associated Diagnosis Comments ERYTHROCYTE SEDIMENTATION RATE Routine 05/22/2025 9:01 AM PRODUCTION MACHINE TENDER Psoriatic arthritis (HCC) CRP (ACUTE PHASE) Routine 05/22/2025 9:0 1 AM PRODUCTION MACHINE TENDER Psoriatic arthritis (HCC) COMPREHENSIVE METABOLIC PANEL Routine 05/22/2025 9:01 AM PRODUCTION MACHINE TENDER Encounter for medication monitoring CBC WITH AUTO DIFFERENTIAL Routine 05/22/2025 9:01 AM PRODUCTION MACHINE TENDER Encounter for medication monitoring SURGICAL PATHOLOGY Routine 03/21/2025 12 :00 AM CDT Lesion of eyelid SCREENING MAMMOGRAM BILATERAL W PETE Schedule Routine, Read Routine (OP Routine) 07/05/2024 8:28 AM PRODUCTION MACHINE TENDER Screening mammogram, encounter for DEXA AXIAL SKELETON BONE DENSITY 1 OR MORE SITES Schedule Routine, Read Routine (OP Routine) 05/12/2022 10:01 AM PRODUCTION MACHINE TENDER Asymptomatic menopausal state Other specified disorders of bone density and structure, unspecified site HEPATITIS C ANTIBODY Routine 12/06/2019 10:39 AM CDT Polyarthralgia Encounter for screening for other viral diseases from Last 3 Months or Most Recently Relevant to Health Maintenance Results * (ABNORMAL) CBC with auto differential (05/22/2025 9:01 AM PRODUCTION MACHINE TENDER) WBC 4.4 3.8 - 10.8 Thousand/u L [...] [facility] Blood 05/22/2025 9:01 AM PRODUCTION MACHINE TENDER 05/22/2025 9:01 AM PRODUCTION MACHINE TENDER us Teri DAVE LAB BLOOD ORDERABLES Ifrah l Result [facility] [address] [place] [address] * Erythrocyte sedimentation rate (05/22/2025 9:01 AM PRODUCTION MACHINE TENDER) Pathologist [facility] Erythrocyte sedimentation rate 9 < OR = 30 mm/h [facility] Blood 05/22/2025 9:01 AM PRODUCTION MACHINE TENDER 05/22/2025 9:01 AM PRODUCTION MACHINE TENDER Teri Hilary DAVE LAB BLOOD ORDERABLES Ifrah l Result Performing Organization Address City/[facility]/ZIP Co de Phone Number IVET [facility] [address] [place] [address] * CRP (acute phase) (05/22/2025 9:01 AM PRODUCTION MACHINE TENDER) Pathologist [facility] C-RP <3.0 <8.0 mg/L [facility] Blood 05/22/2025 9:01 AM PRODUCTION MACHINE TENDER 05/22/2025 9:01 AM PRODUCTION MACHINE TENDER Teri DAVE LAB BLOOD ORDERABLES Ifrah l Result Performing Organization Address [facility] Co de Phone Number [facility]ET [facility] [address] [place] [address] * (ABNORMAL) Comprehensive metabolic panel (05/22/2025 9:01 AM PRODUCTION MACHINE TENDER) Pathologist [facility] Glucose 66 65 - 99 mg/dL [facility] [...] [facility] Blood 05/22/2025 9:01 AM PRODUCTION MACHINE TENDER 05/22/2025 9:01 AM PRODUCTION MACHINE TENDER Teri DAVE LAB BLOOD ORDERABLES Ifrah l Result [facility] [address] [place] [address] * Surgical pathology (03/21/2025 12:00 AM CDT) Tissue (Skin, shave biopsy) 03/21/2025 03/22/2025 7:53 AM CDT Narrative [facility] - 03/25/2025 4:59 PM CDT EPIC results best viewed via link to PDF [facility], [address], [place] [address] [email or web address] Note to Patients: This report may contain a detailed description of human tissue sent by a health care provider to the laboratory for pathologic evaluation. The content of this report is essential for diagnosis and may provide important critical findings. This information may be unfamiliar to patients to review without a medical professional present. It is advised that the patient review this report in the presence of a health care provider who can answer questions and explain the details. FINAL REPORT Patient Information: PATIENT NAME: LEAH BUNDY SEX: F : 1955 (Age: 69) Specimen Information: COLLECTED: 03/21/2025 RECEIVED: 03/22/2025 REPORTED: 03/25/2025 Submitting Physician Information: Ernie Martino M.D. Ernie Martino MD, [facility] [address] ([place] [phone], DERMATOPATHOLOGY REPORT RESULTS DIAGNOSIS: SKIN, RIGHT LOWER LID, SHAVE BIOPSY: COMPOUND MELANOCYTIC NEVUS ag/isr By this signature, I attest that the above diagnosis is based upon my personal examination of the slides(and/or other material indicated in the diagnosis). Bren Braga M.D. Report Electronically Reviewed and Signed Out By Bren Braga M.D. 03/25/2025 16:59:49 CLINICAL INFORMATION NOT SPECIFIED SPECIMEN DATA MICROSCOPIC DESCRIPTION: There are uniform nests, cords and strands of small, monomorphous melanocytes within the dermis. (D22.9) GROSS DESCRIPTION: Received in a formalin-containing bottle is a superficial fragment of pale weller, finely scaling, and semi-translucent skin measuring 0.3 by 0.3 by 0.1 cm. The surgical margin is inked blue. The specimen is submitted entirely in a single cassette. Due to shrinkage, measurements may be different than those at the time of procedure. exr/mxf ICD-9 A; ZSD.407 Clerical Data A; 47885 The characteristics of special, immunohistochemical, and immunofluorescence stains and in-situ hybridization tests performed by the [facility] were deemed acceptable in ongoing quality assurance monitor body measures and in compliance with regulations drawn from the Clinical Laboratory Improvement Act vv9740 (CLIA '88). Control reactions for all stains performed were deemed adequate and appropriate by a pathologist prior to evaluation of patient tissue. Some diagnoses were rendered with the assistance of laboratory-developed tests utilizing analyte-specific reagents; the performance characteristic of these tests were determined by [facility] and are not cleared or approved by the [place] Food an Drug administration. Laboratory developed test may only be performed in a facility that is certified by the [facility] as a high-complexity laboratory under CLIA '88. These tests are used for clinical purposes and are not investigational. Ernie Martino MD LAB PATHOLOGY ORDERABLES Final Result [facility] [address] [place] [id number] * Screening Mammogram Bilateral W Pete (07/05/2024 8:28 AM PRODUCTION MACHINE TENDER) Anatomical Region Laterality Modality Breast Bilateral Mammography 07/05/2024 9:08 AM PRODUCTION MACHINE TENDER Impressions 07/05/2024 9:08 AM PRODUCTION MACHINE TENDER No evidence of malignancy in either breast. FINAL ASSESSMENT: BI-RADS Category 1: Negative. RECOMMENDATION: Recommend return for annual screening mammogram in 12 months. Electronically signed by: GRISELDA LOVE MD Narrative 07/05/2024 9:08 AM PRODUCTION MACHINE TENDER EXAMINATION: BILATERAL SCREENING MAMMOGRAM COMPARISON: All prior [...] 1 or 2 Site (05/12/2022 10:01 AM PRODUCTION MACHINE TENDER) Anatomical Region Laterality Modality Body N/A Other 05/12/2022 10:0 4 AM PRODUCTION MACHINE TENDER Impressions 05/12/2022 10:04 AM PRODUCTION MACHINE TENDER Bone mineral density of the spine falls within normal range, bone mineral density of the left hip falls within osteopenia range. In comparison to previous examination there is increase bone mineral density of the spine and decrease bone mineral density of the left hip. Electronically signed by: Simi Ross M.D. Narrative 05/12/2022 10:04 AM PRODUCTION MACHINE TENDER Examination: Bone densitometry of the lumbar spine [...] a test for HCV RNA (test code 39712) is suggested. For additional information please refer to http://education.Peeky/faq/FEU91c9 (This link is being provided for informational/ educational purposes only.) Blood specimen (specimen) 12/06/2019 10:39 AM CDT 12/06/2019 10:40 AM CDT Narrative [facility] - 12/11/2019 7:24 PM CDT FASTING:YES FASTING: YES [facility] MICROBIOLOGY - GENERA L ORDERABLES Final Result [facility] [address] [place] [address] from Last 3 Months or Most Recently Relevant to Health Maintenance Insurance [facility] [place] [place] [id number] [facility] CHOICE PLUS [facility] HMO/PPO Address: [facility] [address] [place] [address] MEDICARE COMMERCIAL GENERIC MEDICARE DANIEL MEDICARE SUPPLEMENT MEDICARE Care Teams Machine Learning Intern Relationship Specialty [place] [id number] [address] [facility] [address] [place] [address] PCP - General Family Medicine 10/19/22 Keegan Hill DO Family Medicine 04/28/22 [place] [address] [address] [facility] [address] [place] [address] Physician Can Labeler Orthopedic Surgery 02/01/20 Joon Scherer MD [address] [place] [address] Consulting Physician Rheumatology 02/21/23
--- OUTSIDE RECORDS SUMMARY | 2025-05-23 18:22 | XMS_ITS | Encounter Summary ---
Author Organization [facility] Address [address] [place] [address] Phone Care Team Providers Care Supervisor Treating And Pumping Name Role Phone Keegan Hill DO Unavailable [phone] Jazmyn Cardoso Unavailable Kamila Katz DO Primary Care Provider + Joon Scherer MD Unavailable Encounter Details Date Type Department Care Team (Late st Contact Info) Description 03/26/2025 Results Follow-Up [facility] Medicine Ophthalmology 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 Gender Identity Not on file Sexual Orientation Not on file 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 Not on file Not on file documented as of this encounter Plan of Treatment Not on file documented as of this encounter Visit Diagnoses Not on filedocumented in this encounter Care Teams Supervisor Treating And Pumping Relationship Specialty [place] [id number] [address] [facility] [address] [place] [address] PCP - General Family Medicine 10/19/22 Keegan Hill DO Family Medicine 04/28/22 [place] [address] [address] [facility] [address] [place] [address] Physician Preschool Lead Teacher Orthopedic Surgery 02/01/20 Joon Scherer MD [address] [place] [address] Consulting Physician Rheumatology 02/21/23 documented as of this encounter
--- OUTSIDE RECORDS SUMMARY | 2025-05-23 18:23 | XMS_ITS | Clinical Summary ---
Author Organization [facility] Address [address] [place] [address] Phone Care Team Providers Care Product Marketing Programs Manager Name Role Phone Unavailable Primary Care Provider Unavailabl e Allergies No known active allergies Medications calcium as CARBONATE (CALTRATE) 1,500 mg (600 mg elemental) Tablet Take 600 mg by mouth daily. 3 Active cholecalciferol, Vitamin D3, (VITAMIN D3) 25 mcg (1,000 unit) Capsule Take 25 mcg by mouth daily. 3 Active escitalopram oxalate (LEXAPRO) 20 mg tablet Take 1 Tablet by mouth daily. 5 Active folic acid (FOLVITE) 1 mg tablet Take 1 mg by mouth daily. 3 Active methotrexate (RHEUMATREX) 2.5 mg Tablet Take 20 mg by mouth every 7 days. fridays 5 Active omeprazole (PriLOSEC) 20 mg Capsule, Delayed Release(E.C.) Take 20 mg by mouth daily. 2 Active vit C/E/Zn/coppr/lutei n/zeaxan (PRESERVISION AREDS-2 ORAL) Take 1 Tablet by mouth daily. Active sulfamethoxazole-t rimethoprim (BACTRIM DS) 800-160 mg tablet Take 1 Tablet by mouth 2 times daily. 20 Tablet 5 Active oxyCODONE-acetamin ophen (PERCOCET) 5-325 mg tabletIndications: Lumbar radiculopathy Take 1-2 Tablets by mouth every 4 hours as needed. Max Daily Amount: 12 Tablets 56 Tablet 03/14/2025 4:27 PM CDT 5 Active oxyCODONE-acetamin ophen (PERCOCET) 5-325 mg tabletIndications: Lumbar radiculopathy 1 to 2 tablets every 4 hours prn 90 Tablet 5 Active tiZANidine (ZANAFLEX) 4 mg Tablet Take 1 Tablet (4 mg) by mouth every 6 hours as needed for Spasm. 90 Tablet 2 03/14/2025 4:27 PM CDT 5 Active Active Problems No known active problems Encounters Date Type Department Care Team Description 04/30/2025 External Device Data STL ABSTRACTION Provider, Abstract 04/23/2025 9:00 AM SALESPERSON AUTOMOBILES Office Visit [facility] Neurosurgery S [facility] [address] [place] [address] Sandy Alvarez MD Status post lumbar microdiscectomy (Primary Dx) 04/10/2025 External Device Data STL ABSTRACTION Provider, Abstract 04/10/2025 External Device Data STL ABSTRACTION Provider, Abstract 04/03/2025 External Device Data STL ABSTRACTION Provider, Abstract 04/02/2025 External Device Data STL ABSTRACTION Provider, Abstract 03/14/2025 12:30 PM CDT Anesthesia Event [facility] [address] [place] [address] Teri Nick DO Grahek-Lindsey, Lisa M, DAVID 03/14/2025 11:40 AM CDT - 03/14/2025 2:05 PM CDT Surgery [facility] [address] [place] [address] Sandy Alvarez MD RIGHT LUMBAR 5-SACRAL 1 LUMBAR LAMINOTOMY/LAMINECTOMY FOR RESECTION OF SYNOVIAL CYST 03/14/2025 9:35 AM CDT - 03/14/2025 4:58 PM CDT Hospital Encounter [facility] Pre Procedure [place] [address] [place] [address] Sandy Alvarez MD Lumbar herniated disc Discharge Disposition: Home or Self Care 03/12/2025 External Device Data STL ABSTRACTION Provider, Abstract 03/12/2025 External Device Data STL ABSTRACTION Provider, Abstract 03/12/2025 External Device Data STL ABSTRACTION Provider, Abstract 03/11/2025 2:15 PM CDT - 03/11/2025 4:40 PM CDT Surgery [facility] [address] [place] [address] Sandy Alvarez MD Not Performed CASE CANCELLED 03/11/2025 2:15 PM CDT Anesthesia Event [facility] [address] [place] [address] Della Vo NP 03/11/2025 10:40 AM CDT - 03/11/2025 11:43 AM CDT Hospital Encounter [facility] Pre Procedure Phase [place] [address] [place] [address] Sandy Alvarez MD Lumbar herniated disc Discharge Disposition: Home or Self Care 03/11/2025 Refill [facility] Neurosurgery [address] [facility] [address] [place] [address] Sandy Alvarez MD Acute cystitis without hematuria (Primary Dx) 03/11/2025 Travel 03/07/2025 9:02 AM CDT - 03/07/2025 11:59 PM CDT Hospital Encounter [facility] Pre Surgical Assessment [address] [place] [address] Sandy Alvarez MD Discharge Disposition: Home or Self Care 03/05/2025 9:05 AM CDT Ancillary Procedure [facility] Neurosurgery [address] [facility] [address] [place] [address] Rakesh Grayson NP Degeneration of intervertebral disc of lumbar region with discogenic back pain and lower extremity pain 03/05/2025 9:00 AM CDT Office Visit [facility] Neurosurgery [address] [facility] [address] [place] [address] Sandy Alvarez MD Synovial cyst of lumbar spine (Primary Dx) 03/05/2025 Telephone [facility] Neurosurgery S [facility] [address] [place] [address] Sandy Alvarez MD Surgery Discussion 03/05/2025 Orders Only [facility] Neurosurgery [address] [facility] [address] [place] [address] Provider, Abstract from Last 3 Months Family History Relation Name Status Comments Father Mother Alive Social History Tobacco Use Types Packs/Day Years Used Date Smoking Tobacco: Never Smokeless Tobacco: Never Tobacco Cessation:Counseling Given: Not Answered Alcohol Use Standard Drinks/Week Comments Yes 14 (1 standard drink = 0.6 oz pu re alcohol) Feeling Safe Answer Date Recorded Are you in a relationship wi th someone who hurts you emotionally and/or physically? No 03/14/2025 Comments No Sex and Gender Information Value Date Recorded Sex Assigned at Not on file Legal Sex Female 3:36 AM SALESPERSON AUTOMOBILES Gender Identity Not on file Sexual Orientation Not on file Last Filed Vital Signs Vital Sign Reading Time Taken Comments Blood Pressure 122/84 04/23/2025 7:00 AM SALESPERSON AUTOMOBILES Pulse 69 04/23/2025 7:00 AM SALESPERSON AUTOMOBILES Temperature 36.7 C (98.1 F) 03/14/2025 4:03 PM CDT Respiratory Rate 16 03/14/2025 4:03 PM CDT Oxygen Saturation 97% 04/23/2025 7:00 AM SALESPERSON AUTOMOBILES Inhaled Oxygen Concentration - - Weight 81.1 kg (178 lb 12.8 oz) 04/23/2025 7:00 AM SALESPERSON AUTOMOBILES Height 170.2 cm (5' 7) 04/23/2025 7:00 AM SALESPERSON AUTOMOBILES Body Mass Index 28 04/23/2025 7:00 AM SALESPERSON AUTOMOBILES Plan of Treatment Health Maintenance Due Date Last Done Comments Pre-Diabetes and Diabetes Screening 1955 COLORECTAL SCREENING 2001 Colorectal Cancer Screening 2001 FIT-DNA Q 3 years 2001 FIT/FOBT Q 1 year 2001 Flex Sig/CT Colonography Q 5 years 2001 PNEUMOCOCCAL VACCINE 50+ YEA RS (1 of 1 - PCV) 2006 RSV VACCINE (60+ or ) (1 - Risk 50-74 years 1-dose series) 2006 ZOSTER VACCINE (1 of 2) 2006 DTAP/TDAP/TD VACCINES (2 - T d or Tdap) 10/10/2022 10/10/2012 INFLUENZA VACCINE (#1) 2025 6, 03/13/2015, 03/13/2013, Additional history exists BREAST CANCER SCREENING 07/05/2025 07/05/19 25, 07/05/2024, 05/12/2022, Additional history exists OSTEOPOROSIS SCREENING 05/12/2027 2, 05/12/2022, 04/30/2020, Additional history exists Medical Devices Implanted Type Area Mainframe Systems Administrator Device Identifier Shelf Expiration Date Model / Serial / Lot Hemostatic Surgifoam Sz12-7 1971 - [id number] Implanted:Qty : 1 on 03/14/2025 by Sandy Alvarez MD at [facility] Hemostatic Right: Spine Lumbar [employer] [id number] 07/12/20281971 / / [id number] Hemostatic Surgiflo 8ml W/ Thrombin 299 - [id number] Implanted:Qty : 1 on 03/14/2025 by Sandy Alvarez MD at [facility] Hemostatic Right: Spine Lumbar [employer] [id number] 06/12/2026 299 / / [id number] Procedures Procedure Name Priority Date/Time Associated Diagnosis Comments XR LUMBAR SPINE 1 VW Pending Discharge 03/14/2025 1:14 PM CDT RI BARNEY EXC/EVAC ISPI LESION OTH/THN MARICRUZ XDRL LUMBAR 03/14/2025 11:40 AM CDT Lumbar herniated disc Special Needs DR VALERIO 2HR; PRONE; MICROSCOPE; OPEN SOURAV; RIANNA FRAME; MCULLOUGH RETRACTOR; FLAT PLATE RADIOLOGY FOR LOCALIZATION POC GLUCOSE Routine 03/11/2025 11:05 AM CDT EKG 12-LEAD Routine 03/07/2025 9:58 AM CDT EXTRA TUBE (URINE BELLE) Routine 03/07/2025 9:51 AM CDT Pre-operative examination URINALYSIS WITH REFLEX CULTURE Routine 03/07/2025 9:51 AM CDT Pre-operative examination PROTIME-INR Routine 03/07/2025 9:51 AM CDT Pre-operative examination PTT Routine 03/07/2025 9:51 AM CDT Pre-operative examination BASIC METABOLIC PANEL Routine 03/07/2025 9:51 AM CDT Pre-operative examination CBC WITH DIFFERENTIAL Routine 03/07/2025 9:51 AM CDT Pre-operative examination URINE CULTURE Routine 03/07/2025 9:51 AM CDT Pre-operative examination XR LUMBAR SPINE 4+ VW Routine 03/05/2025 9:08 AM CDT Degeneration of intervertebral disc of lumbar region with discogenic back pain and lower extremity pain from Last 3 Months Results * XR LUMBAR SPINE 1 VW (03/14/2025 1:14 PM CDT) Anatomical Region Laterality Modality Spine Computed Radiogr aphy 03/14/2025 1:14 PM CDT Impressions 03/14/2025 1:19 PM CDT IMPRESSION: Localization of L5-S1 DICTATION LOCATION: [address] Narrative 03/14/2025 1:19 PM CDT CROSSTABLE LATERAL LUMBAR SPINE DATE: 03/14/2025 1:14 PM HISTORY: Other - Please see comments. Lumbar radiculopathy COMPARISON: March 05, 2025 TECHNIQUE: Crosstable lateral lumbar spine FINDINGS: A probe is placed at the L5-S1 disc space level INCIDENTAL FINDINGS: None. Procedure Note Maycol Cartwright MD - 03/14/2025 CROSSTABLE LATERAL LUMBAR SPINE DATE: 03/14/2025 1:14 PM HISTORY: Other - Please see comments. Lumbar radiculopathy COMPARISON: March 05, 2025 TECHNIQUE: Crosstable lateral lumbar spine FINDINGS: A probe is placed at the L5-S1 disc space level INCIDENTAL FINDINGS: None. IMPRESSION: Localization of L5-S1 DICTATION LOCATION: Location [address] [place] [address] us Sandy Alvarez MD DIAGNOSTIC IMAGING ORDERABLES Final Result * POC GLUCOSE (03/11/2025 11:05 AM CDT) GLUCOSE POC 91 74 - 99 mg/dL 03/11/2025 11:05 AM CDT [facility] POINT OF CARE SPECIMEN SOURCE, GLUCOSE POC Whole Blood 03/11/2025 11:05 AM CDT [facility] POINT OF CARE Blood, whole 03/11/2025 11:0 5 AM CDT 03/11/2025 11:12 AM CDT us Sandy Alvarez MD POINT OF CARE TESTING Final Re sult [facility] POINT OF CARE CLIA # [id number] [address] [place] [address] * EKG 12-LEAD (03/07/2025 9:58 AM CDT) 03/07/2025 9:58 AM CDT Narrative INTERFACE SYSTEM - 03/07/2025 2:16 [place] [address] Test Date: 2025-03-07 Pat Name: LEAH BUNDY Department: 88 Room: Gender: F Sports Media: elías : 1955 Requested By: SANDY Tadeo Order Number: [id number] Reading MD: Sacha Parks Measurements Intervals [place] Rate: 72 P: 74 RI: 196 QRS: 50 QRSD: 78 T: 50 QT: 394 QTc: 431 Interpretive Statements Normal sinus rhythm Normal ECG No previous ECG available for comparison Electronically Signed On 03-07-2025 14:16:15 CDT by Sacha Parks Procedure Note Provider, Historical - 03/07/2025 [place] [address] Test Date: 2025-03-07 Pat Name: [facility] Department: 88 Room: Gender: F Sports Media: elías FERRERAB: 1955 Requested By: SANDY Tadeo Order Number: [id number] Reading MD: Sacha Parks Measurements Intervals [place] Rate: 72 P: 74 RI: 196 QRS: 50 QRSD: 78 T: 50 QT: 394 QTc: 431 Interpretive Statements Normal sinus rhythm Normal ECG No previous ECG available for comparison Electronically Signed On 03-07-2025 14:16:15 CDT by Sacha Parks us Sandy Alvarez MD ECG ORDERABLES Final Result Performing Organization Address City/[facility] de Phone Number INTERFACE SYSTEM Refer to clinic/hospital department * EXTRA TUBE (URINE BELLE) (03/07/2025 9:51 AM CDT) Urine URINE SPECIMEN OBTAINED BY CLEAN CATCH PROCEDURE / Unknown Collection / Unknown 03/07/2025 9:51 AM CDT 03/07/2025 10:39 AM CDT Sandy Alvarez MD URINE ORDERABLES Final Result Performing Organization Address City/[facility] de Phone Number [facility] Crew [facility] CLIA# [id number] [address] [place] [address] * (ABNORMAL) URINALYSIS WITH REFLEX CULTURE (03/07/2025 9:51 AM CDT) COLOR UA Yellow Pale to Dark Yellow 03/07/2025 10:50 AM CDT [facility] CLARITY UA Clear Clear 03/07/2025 10:50 AM CDT [facility] SPECIFIC GRAVITY UA 1.014 1.003 - 1.035 03/07/2025 10:50 AM CDT [facility] PH UA 6.0 5.0 - 8.0 03/07/2025 10:50 AM CDT [facility] LEUKOCYTE ESTERASE UA 2+(A) Negative 03/07/2025 10:50 AM CDT [facility] NITRITE UA Negative Negative 03/07/2025 10:50 AM CDT [facility] PROTEIN UA Negative Negative 03/07/2025 10:50 AM CDT [facility] GLUCOSE UA Negative Negative 03/07/2025 10:50 AM CDT [facility] KETONES UA Negative Negative 03/07/2025 10:50 AM CDT [facility] UROBILINOGEN UA Normal <2.0 mg/dL 10:50 AM CDT [facility] BILIRUBIN UA Negative Negative 03/07/2025 10:50 AM CDT [facility] BLOOD UA Negative Negative 03/07/2025 10:50 AM CDT [facility] WBC UA >100(A) 0 - 2 /hpf 03/07/2025 10:50 AM CDT [facility] RBC UA 3-5(A) 0 - 2 /hpf 03/07/2025 10:50 AM CDT [facility] BACTERIA UA 1+(A) Negative /hpf 03/07/2025 10:50 AM CDT [facility] EPITHELIAL CELLS, URINE 0-5 0 - 5 /hpf 03/07/2025 10:50 AM CDT [facility] HYALINE CAST None Seen None Seen, 0-2 /lpf 03/07/2025 10:50 AM T [facility] Urine URINE SPECIMEN OBTAINED BY CLEAN CATCH PROCEDURE / Unknown Collection / Unknown 03/07/2025 9:51 AM CDT 03/07/2025 10:39 AM CDT Narrative [facility] - 03/07/2025 10:50 AM CDT Based on results, a urine culture has been reflexed. us Sandy Alvarez MD URINE ORDERABLES Final Result [facility] CLIA# [id number] [place], [place] [id number] * (ABNORMAL) CBC WITH DIFFERENTIAL (03/07/2025 9:51 AM CDT) WBC 4.7 4.0 - 9.8 K/uL 03/07/2025 11:17 AM CDT [facility] RBC 3.91 3.90 - 4.90 M/uL 03/07/2025 11:17 AM CDT [facility] HEMOGLOBIN 13.0 11.8 - 14.8 g/dL 03/07/2025 11:17 AM CDT [facility] HEMATOCRIT 38.8 35.5 - 44.0 % 03/07/2025 11:17 AM CDT [facility] MCV 99.2(H) 82.0 - 99.0 fL 03/07/2025 11:17 AM CDT [facility] MCH 33.2(H) 27.2 - 32.6 pg 03/07/2025 11:17 AM CDT [facility] MCHC 33.5 31.5 - 35.5 g/dL 03/07/2025 11:17 AM CDT [facility] RDW 12.9 11.5 - 14.5 % 03/07/2025 11:17 AM CDT [facility] RDW-STDEV 46.3 37.1 - 48.7 fL 03/07/2025 11:17 AM CDT [facility] PLATELETS 212 140 - 350 K/uL 03/07/2025 11:17 AM CDT [facility] MPV 9.9 9.3 - 12.4 fL 03/07/2025 11:17 AM CDT [facility] NEUTROPHILS 51 % 03/07/2025 11:17 AM CDT [facility] LYMPHOCYTES 32 % 03/07/2025 11:17 AM CDT [facility] MONOCYTES 12 % 03/07/2025 11:17 AM CDT [facility] EOSINOPHILS 4 % 03/07/2025 11:17 AM CDT [facility] BASOPHILS 0 % 03/07/2025 11:17 AM CDT [facility] IMMATURE GRANULOCYTES 0 % 03/07/2025 11:17 AM CDT [facility] NEUTROPHIL ABSOLUTE 2.41 1.90 - 7.00 K/uL 03/07/2025 11:17 AM CDT [facility] LYMPHOCYTE ABSOLUTE 1.50 0.70 - 4.50 K/uL 03/07/2025 11:17 AM CDT [facility] MONOCYTE ABSOLUTE 0.57 0.10 - 1.30 K/uL 03/07/2025 11:17 AM CDT [facility] EOSINOPHIL ABSOLUTE 0.21 0.00 - 0.70 K/uL 03/07/2025 11:17 AM CDT [facility] - [facility] BASOPHILS ABSOLUTE 0.02 0.00 - 0.20 K/uL 03/07/2025 11:17 AM CDT [facility] - [facility] IMMATURE GRANULOCYTES ABSOLUTE 0.01 0.00 - 0.03 K/uL 03/07/2025 11:17 AM CDT [facility] Blood Venipuncture / Unknown 03/07/2025 9:51 AM CDT 03/07/2025 10:39 AM CDT Sandy Alvarez MD HEMATOLOGY ORDERABLES Final Re sult [facility] CLIA# [id number] [address] [place] [address] * PTT (03/07/2025 9:51 AM CDT) PTT 24.7 23.1 - 37.1 seconds 03/07/2025 11:03 AM CDT [facility] Blood Venipuncture / Unknown 03/07/2025 9:51 AM CDT 03/07/2025 10:39 AM CDT Sandy Alvarez MD HEMATOLOGY ORDERABLES Final Re sult [facility] CLIA# [id number] [address] [place] [address] * PROTIME-INR (03/07/2025 9:51 AM CDT) PROTIME 12.8 11.5 - 14.7 Seconds 03/07/2025 11:03 AM CDT [facility] INR 1.0 0.9 - 1.1 03/07/2025 11:03 AM CDT [facility] Blood Venipuncture / Unknown 03/07/2025 9:51 AM CDT 03/07/2025 10:39 AM CDT Sandy Alvarez MD HEMATOLOGY ORDERABLES Final Re sult [facility] CLIA# [id number] [address] [place] [address] * (ABNORMAL) URINE CULTURE (03/07/2025 9:51 AM CDT) CULTURE ESCHERICHIA COLI(A) RUSS MCG/ML 03/10/2025 10:38 AM CDT [facility] Urine URINE SPECIMEN OBTAINED BY CLEAN CATCH PROCEDURE / Unknown Collection / Unknown 03/07/2025 9:51 AM CDT 03/07/2025 10:49 AM CDT Narrative Organism Antibiotic Method Susceptibility Escherichia coli CEFAZOLIN RUSS MCG/ML <=4 mcg/mL: Susceptible Escherichia coli CEFUROXIME RUSS MCG/ML Susceptible Escherichia coli CEPHALEXIN RUSS MCG/ML Susceptible Escherichia coli CEFPODOXIME RUSS MCG/ML Susceptible Escherichia coli CEFACLOR RUSS MCG/ML Susceptible Escherichia coli CEFDINIR RUSS MCG/ML Susceptible Escherichia coli GENTAMICIN RUSS MCG/ML <=1 mcg/mL: Susceptible Escherichia coli CIPROFLOXACIN RUSS MCG/ML <=0.25 mcg/mL: Susceptible Escherichia coli TRIMETHOPRIM/ SULFAMETHOXAZOLE RUSS MCG/ML <=20 mcg/mL: Susceptible Escherichia coli NITROFURANTOIN RUSS MCG/ML <=16 mcg/mL: Susceptible Escherichia coli AMPICILLIN RUSS MCG/ML <=2 mcg/mL: Susceptible Comment:Aminoglycosides shou ld not be used as monotherapy for infections outside the urinary tract. Consultation with an infectious diseases specialist is recommended. Sandy Alvarez MD MICROBIOLOGY - GENERAL ORDERAB LES Final Result [facility] JONY# [id number] [address] [place] [address] * BASIC METABOLIC PANEL (03/07/2025 9:51 AM CDT) SODIUM 137 136 - 145 mmol/L 03/07/2025 11:13 AM CDT [facility] POTASSIUM 4.5 3.4 - 5.1 mmol/L 03/07/2025 11:13 AM CDT [facility] CHLORIDE 101 98 - 107 mmol/L 03/07/2025 11:13 AM CDT [facility] CO2 26 22 - 29 mmol/L 03/07/2025 11:13 AM T [facility] CALCIUM 9.5 8.6 - 10.4 mg/dL 03/07/2025 11:13 AM T [facility] BUN 14 6 - 20 mg/dL 03/07/2025 11:13 AM T [facility] CREATININE 0.71 0.51 - 0.95 mg/dL 03/07/2025 11:13 AM T [facility] GLUCOSE 82 74 - 99 mg/dL 03/07/2025 11:13 AM [facility] GFR >60 >=60 mL/min/1.7 3 sq meter 03/07/2025 11:13 AM [facility] Crew [facility] Comment:eGFR calculated with 2020 CKD-EPI equation. Vegetarian diet, extremely high or low muscle mass, and may affect results. Cystatin C with Glomerular Filtration Rate is a suitable alternative for these patients. ANION GAP 10 8 - 16 mmol/L 03/07/2025 11:13 AM T [facility] Crew [facility] Blood Venipuncture / Unknown 03/07/2025 9:51 AM CDT 03/07/2025 10:39 AM CDT Sandy Alvarez MD CHEMISTRY ORDERABLES Final Res ult [facility]# [id number] [place] [address] * XR LUMBAR SPINE 4+ VW (03/05/2025 9:08 AM CDT) Anatomical Region Laterality Modality Spine Computed Radiogr aphy Narrative 03/05/2025 9:50 AM CDT L-spine xray report: Clinical Indications: back pain, radiculopathy, and evaluate for instability Technique: AP/lateral lumbar spine films with flexion and extension were performed today in clinic and personally reviewed by me. My findings/interpretation are: There is no acute evidence of interval fracture or traumatic subluxation identified. Overall sagittal alignment shows normal lumbar lordosis. AP alignment of the lumbar spine shows degenerative scoliosis. Vertebrae show normal architecture Intervertebral disc spaces show significant degeneration and collapse at L2-3 and L4-5 with slight retrolisthesis of L2 on L3. There is no abnormal movement on dynamic range of motion. The sacroiliac joints appear symmetric. Rakesh Grayson NP DIAGNOSTIC IMAGING ORDERAB LES Final Result from Last 3 Months Insurance MEDICARE PART A AND B [facility] [employer] Medicare Part D
--- OUTSIDE RECORDS SUMMARY | 2025-05-23 18:23 | XMS_ITS | Clinical Summary ---
Author Organization [facility] Address [address] [place] [address] Care Team Providers Care Senior Drupal Developer Name Role Phone Kamila Katz Primary Care Provider [phone] Source Comments [facility],non-owned Affiliates and Associated Physician Practices is amultiple site organization consisting of ambulatory clinics and hospital sitesin [place], [place]. This disclosure is being madepursuant to the Care Everywhere program and may not contain all information available regarding this patient. 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 Gender Identity Not on file Sexual Orientation [...] FLEX SIG - COLON CA SCREENING 1955 LIPID TESTING 1955 MAMMOGRAM 1955 MEDICARE AWV 12 MONTHS 1955 HEPATITIS C SCREENING 05/02/1974 DTAP/TDAP/TD VACCINES (1 - Tdap) 1975 PNEUMOCOCCAL VACCINE 50+ (1 of 1 - PCV) 2006 ZOSTER VACCINE (1 of 2) 2006 DEPRESSION SCREENING 06/13/2024 COVID-19 VACCINE (1 - 2024- season) 2025 INFLUENZA VACCINE (#1) 2025 7, 03/13/2016, 03/13/2015, Additional history exists Respiratory Syncytial Virus (RSV) Vaccine Pt: or [...] age to complete this topic Insurance MEDICARE Member Subscriber Plan / Payer (Ef fective 2022-Present) Name:Leah Bundy Member ID:[id number] Relation to Subscriber:Self Name:Gregor, Leah Ezequiel Subscriber ID:[id number] Payer ID:Not on file Group ID:Not on file Type:Medicare Address: [place] [phone] MEDICARE SUPPLEMENT PAYOR GENERIC Care Teams Senior Drupal Developer Relationship Specialty Start Date End Date Kamila Katz DO [address] [place] [address] PCP - General Family Medicine 04/03/23
--- OUTSIDE RECORDS SUMMARY | 2025-05-23 18:23 | XMS_ITS | Encounter Summary ---
Author Organization [facility] Address [address] [place] [address] Phone Care Team Providers Care Ticket Clerk Name Role Phone Amish Aniket DO Primary Care Provider [phone] Keegan Hill DO Primary Care Provider [phone] Keegan Hill DO Unavailable [phone] Irene Mckeon RN Unavailable Unavailab marichuy Caballero III, MD, Crow Ritchie Unavailable [phone] Jazmyn Cardoso Unavailable [phone] Kamila Katz DO Primary Care Provider + Joon Scherer MD Unavailable [phone] Encounter Details Date Type Department Care Team (Late st Contact Info) Description 04/01/2022 Orders Only [facility] [address] [place] [address] Scanning, Provider Social History Tobacco Use Types Packs/Day Years Used Date Smoking Tobacco: Never Smokeless Tobacco: Never Alcohol Use Standard Drinks/Week Comments Yes 0 (1 standard drink = 0.6 oz pur e alcohol) daily 2 glasses of wine Comments No Sex and Gender Information Value Date Recorded Sex Assigned at Not on file Legal Sex Female 10:40 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 Gender Identity Not on file Sexual [...] on filedocumented in this encounter Care Teams Ticket Clerk Relationship Specialty Start Date End Date Aniket Wellington DO PCP - General 05/29/19 04/27/22 Keegan Hill DO PCP - General Family Medicine 04/28/22 10/18/22 [place] [id number] [facility] [address] [place] [address] PCP - General Family Medicine 10/19/22 Keegan Hill DO Family Medicine 04/28/22 Irene Mckeon, RN Registered Nurse 09/26/17 2 Crow Caballero III, MD [address] [place] [address] Consulting Physician Rheumatology 11/15/19 02/20/23 [place] [address] [address] [address] [address] [place] [address] Physician Outcomes Analyst Orthopedic Surgery 02/01/20 Joon Scherer MD [address] [place] [address] Consulting Physician Rheumatology 02/21/23 documented as of this encounter
--- OUTSIDE RECORDS SUMMARY | 2025-05-23 18:23 | XMS_ITS | Encounter Summary ---
Author Organization [facility] Address [address] [facility] Attn: Epic Prelude ADT AMIE SIMONAIMANI CONTRERAS [address] Care Team Providers Care Industrial Relations Representative Name Role Phone Unavailable Primary Care Provider Unavailabl e Encounter Details Date Type Department Care Team (Late st Contact Info) Description 10/15/1993 Outpatient Historical Arcenio Torres Social History Tobacco Use Types Packs/Day Years Used Date Smoking Tobacco: Never Assessed Comments Unknown Sex and Gender Information Value Date Recorded Sex Assigned at Not on file Legal 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
--- OUTSIDE RECORDS SUMMARY | 2025-05-23 18:23 | XMS_ITS | Encounter Summary ---
Author Organization [facility] Address [address] [place] [address] Phone Care Team Providers Care Staff Software Engineer Name Role Phone Keegan Hill DO Unavailable [phone] Jazmyn Cardoso Unavailable Kamila Katz DO Primary Care Provider + Joon Scherer MD Unavailable Encounter Details Date Type Department Care Team (Latest Contact Info) Description 05/23/2025 Results Follow-Up [facility] [address] [place] [id number] Teri Norwood PA [address] [place] [address] CBC with auto differential, Comprehensive metabolic panel, CRP (acute phase), Erythrocyte sedimentation rate Social History Tobacco Use Types Packs/Day Years Used Date Smoking Tobacco: Never Passive Smoke Exposure: Never Smokeless Tobacco: Never Alcohol Use Standard Drinks/Week Comments Yes 0 (1 standard drink = 0.6 oz pur e alcohol) daily 2 glasses of wine Comments No Sex and Gender Information Value Date Recorded Sex Assigned at Not on file Legal Sex Female 10:40 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 Gender Identity Not on file Sexual Orientation Not on file 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 Not on file Not on file documented as of this encounter Plan of Treatment Not on file documented as of this encounter Visit Diagnoses Not on filedocumented in this encounter Care Teams Staff Software Engineer Relationship Specialty [place] [address] [facility] [address] [place] [address] PCP - General Family Medicine 10/19/22 Keegan Hill DO Family Medicine 04/28/22 [place] [address] [facility] [address] [place] [address] Physician Commissary Officer Orthopedic Surgery 02/01/20 Joon Scherer MD [address] [place] [address] Consulting Physician Rheumatology 02/21/23 documented as of this encounter
[2025-05-29 03:07] LABS: F416-IgE Tri a 19(w-5 gliadin) <0.10 kU/L (Class 0); F449-IgE Ses i 1 YES YES; Panel 603848 Milk YES YES; Panel 604845 Peanut YES YES
== END 2025-05-23 15:22 | disposition home or self-care (01) ==
LOC: ANHGOSHLAB 15:22
PROVIDERS: PCP Family Medicine; Visit Provider Family Medicine
DX: K90.41 Non-celiac gluten sensitivity (principal); R19.7 Diarrhea, unspecified; Z11.3 Encounter for screening for infections with a predominantly sexual mode of transmission
CPT/HCPCS: 86003; 86231; 86593